=== PATIENT | female | born 1945 | race Caucasian/White ===

== ENCOUNTER 2020-01-14 08:03 | Outpatient (REF) | payer SELFPAY | END 2020-01-14 08:04 | disposition home or self-care (01) | LOC: HO.HAP 08:03 | PROVIDERS: Visit Provider Internal Medicine | DX: Z13.89 Encounter for screening for other disorder (principal) | CPT/HCPCS: 92700 ==

== ENCOUNTER 2020-01-15 08:09 | Outpatient (REF) | payer SELFPAY | END 2020-01-15 08:10 | disposition home or self-care (01) | LOC: HO.HAP 08:09 | PROVIDERS: Visit Provider Internal Medicine | DX: Z13.89 Encounter for screening for other disorder (principal) | CPT/HCPCS: 92700 ==

== ENCOUNTER 2020-01-30 08:55 | Outpatient (REF) | payer SELFPAY | END 2020-01-30 08:56 | disposition home or self-care (01) | LOC: HO.HAP 08:55 | PROVIDERS: PCP Internal Medicine; Referring Provider Internal Medicine; Visit Provider Internal Medicine | DX: Z13.89 Encounter for screening for other disorder (principal) | CPT/HCPCS: 92700 ==

== ENCOUNTER → 2020-07-14 08:28 | Outpatient (BNVA) | payer MEDICARE, OTHER, SELFPAY | PROVIDERS: Visit Provider Orthopaedic Surgery | DX: M72.0 Palmar fascial fibromatosis [Dupuytren] (principal) | CPT/HCPCS: 99202 ==

== ENCOUNTER 2020-08-11 09:47 | Outpatient (REF) | payer SELFPAY | END 2020-08-11 09:48 | disposition home or self-care (01) | LOC: HO.HAP 09:47 | PROVIDERS: Visit Provider Internal Medicine | DX: H90.3 Sensorineural hearing loss, bilateral (principal); Z46.1 Encounter for fitting and adjustment of hearing aid | CPT/HCPCS: 99499 ==

== ENCOUNTER → 2020-10-20 08:36 | Outpatient (BNVA) | payer OTHER, SELFPAY | PROVIDERS: Visit Provider Orthopaedic Surgery | DX: M72.0 Palmar fascial fibromatosis [Dupuytren] (principal) | CPT/HCPCS: 99212 ==

== ENCOUNTER 2020-11-02 06:04 | Day surgery (SDC) | payer MEDICARE, OTHER, SELFPAY ==
[2020-10-26 09:53] VITALS: BMI 25.0
--- NOTE | 2020-11-01 09:07 | HO.ANESPROP2 ---
Documented by User: Mariann Desire 11/01/20 09:07 HPI - Anesthesia Eval Consult details Narrative: 75yo F for Left Partial Fasciectomy of the Ring Finger, Middle Finger & Poss Small Finger PMFSH Active Problems Active Problems: All Active Problems (Updated 10/26/20 @ 09:55 by Anna Chester) Dupuytren's contracture of left hand (Acute) Dupuytren's contracture of right hand (Acute) Past Medical History Medical History COVID-19 vaccine series completed Dupuytren contracture Hx of cerebral infarction Hypercholesteremia Hypertension Wears hearing aid in both ears Surgical History Surgical History H/O colonoscopy Hx of hand surgery Hx of squamous cell carcinoma excision Hx of tonsillectomy Social History Social History Are you a primary managed care analyst to a significant other at home: No Do you presently have visiting nurse or other home services: No Patient Tobacco Use Status: Never used Tobacco Use of substances other than those prescribed or required for medical reasons: No Have you been hit, kicked, punched, or otherwise hurt by someone within the past year? If so, by whom?: No Are you DNR?: No Advance Directives: No Advance Directives Information Provided: Yes (states has a HCP but not on file @[facility] [place]-asked to bring copy DOS) Advance Directives on File: No Recently lost weight without trying: No Nutrition Risks: Surgical patient >75years Poor oral hygiene: No Current occupational status: retired Meds Allergies Allergy/AdvReac Type Severity Reaction Status Date / Time Penicillins [PCN] Allergy Mild RASH Verified 11/02/20 06:20 pravastatin AdvReac Intermediate body aches Verified 11/02/20 06:20 Home Medications Medication Instructions Recorded Confirmed Last Taken Type atorvastatin 40 mg tablet 40 mg PO DAILY 07/14/20 10/26/20 Unknown History glucosamine sulfate 2KCl 500 mg 500 mg PO DAILY 07/14/20 10/26/20 Unknown History capsule (Glucosamine Relief) lisinopril 40 mg tablet 40 mg PO DAILY 07/14/20 10/26/20 11/02/20 04:30 History amlodipine 2.5 mg tablet 2.5 mg PO DAILY 10/20/20 10/26/20 11/02/20 04:30 History zolpidem 5 mg tablet (Ambien) 5 mg PO BEDTIME PRN 10/20/20 10/26/20 Unknown History aspirin 325 mg tablet 325 mg PO DAILY 10/26/20 10/26/20 10/26/20 08:00 History Exam Exam Date and Time: November 01, 2020 0907 Height,Weight and Vital Signs: Height 5 ft Weight 58.06 kg Assessment and Plan Assessment Anesthesia Assessment: Chart Reviewed Documented by User: Endy Lowery MD 11/02/20 07:53 [facility] Past Medical History Medical History COVID-19 vaccine series completed Dupuytren contracture Hx of cerebral infarction Hypercholesteremia Hypertension Wears hearing aid in both ears Family History Family history of problems with anesthesia: No Surgical History Surgical History H/O colonoscopy Hx of hand surgery Hx of squamous cell carcinoma excision Hx of tonsillectomy History of Problems with Anesthesia: No Social History Social History Are you a primary managed care analyst to a significant other at home: No Do you presently have visiting nurse or other home services: No Patient Tobacco Use Status: Never used Tobacco Use of substances other than those prescribed or required for medical reasons: No Have you been hit, kicked, punched, or otherwise hurt by someone within the past year? If so, by whom?: No Are you DNR?: No Advance Directives: No Advance Directives Information Provided: Yes (states has a HCP but not on file @[facility] [place]-asked to bring copy DOS) Advance Directives on File: No Recently lost weight without trying: No Nutrition Risks: Surgical patient >75years Poor oral hygiene: No Current occupational status: retired Meds Allergies Allergy/AdvReac Type Severity Reaction Status Date / Time Penicillins [PCN] Allergy Mild RASH Verified 11/02/20 06:20 pravastatin AdvReac Intermediate body aches Verified 11/02/20 06:20 Home Medications Medication Instructions Recorded Confirmed Last Taken Type atorvastatin 40 mg tablet 40 mg PO DAILY 07/14/20 10/26/20 Unknown History glucosamine sulfate 2KCl 500 mg 500 mg PO DAILY 07/14/20 10/26/20 Unknown History capsule (Glucosamine Relief) lisinopril 40 mg tablet 40 mg PO DAILY 07/14/20 10/26/20 11/02/20 04:30 History amlodipine 2.5 mg tablet 2.5 mg PO DAILY 10/20/20 10/26/20 11/02/20 04:30 History zolpidem 5 mg tablet (Ambien) 5 mg PO BEDTIME PRN 10/20/20 10/26/20 Unknown History aspirin 325 mg tablet 325 mg PO DAILY 10/26/20 10/26/20 10/26/20 08:00 History Exam Airway Mallampati Class: II TM Dist: >3cm Neck ROM: Full Loose/Missing/Broken Teeth: Yes Heart: Sinus Assessment and Plan Assessment Anesthesia Assessment: Anesthesia Plan Discussed Final Anesthetic Review Family History of Problems with Anesthesia: No History of Problems with Anesthesia: No NPO: Yes ASA Class: II Final Preanesthetic Review: No Changes in Pt Med Stat, Meds/Allgs Chart Reviewed, Consent Obtained/Reviewed and Anes Risks/Benef Reviewed Patient Risk: Intermediate Procedure Risk: Low Anesthetic Plan Anesthetic Plan: GA and Regional Block Disposition: Standard PACU
[2020-11-02] VITALS (9 sets, daily range): BP systolic 110–150; BP diastolic 41–77; PULSE 75–87; RESP 16–18; TEMP 36.2–36.8; O2SAT 93–99
[2020-11-02] MEDS: Lactated Ringers 1,000 ML 100 ML IVCONT (07:03)
--- NOTE | 2020-11-02 07:45 | PC.NURSE ---
verified pt has pcn allergy with mild rash. informed DR Tinoco and Dr. Lowery. They both said ok for the cefazolin to be given in or. medication acknowledged.
--- NOTE | 2020-11-02 10:57 | MHC.SHP ---
Pre-Procedural Eval Section A Date of Service: 11/02/20 The patient is an INPATIENT: No Changes since office visit: No Cold of Flu in the past 2 weeks, No New Medical Problems, No Changes in Medication and No Patient answered all questions The History & Physical has been completed within 30 days and I have reviewed it.: Yes Section B Chief Complaint: House Fascial Fibromatosis Allergies: Allergies Allergy/AdvReac Type Severity Reaction Status Date / Time Penicillins [PCN] Allergy Mild RASH Verified 11/02/20 06:20 pravastatin AdvReac Intermediate body aches Verified 11/02/20 06:20 Plan I have reviewed the history and physical and performed a pertinent physical examination on my patient. No changes have occurred unless specified.
--- NOTE | 2020-11-02 10:58 | W.PM.OPN ---
Operative Note Operative Note Date of Service: 11/02/20 Narrative: Preop diagnosis: 1. Left hand and ring finger Dupuytren's contracture 2. Left hand and small finger Dupuytren's contracture Postop diagnosis: Same Procedure: 1. Left hand and ring finger Partial Dupuytren's fasciectomy 2. Left hand and small finger partial Dupuytren's fasciectomy 3. Neurolysis left ring finger ulnar digital nerve 4. Neurolysis left small finger ulnar digital nerve 5. Left ring finger PIP joint capsulectomy/volar release 6. Left small finger PIP joint capsulectomy/ volar release Surgeon: Genoveva Tinoco MD Anesthesia: Mac plus regional block Findings: 90 degree Dupuytren's contractures of the small and ring finger PIP joints The primary small finger Dupuytren's cord came off of the small finger abductor extending distally to the ulnar aspect of the middle phalanx. Implants: None Tourniquet time: 105 minutes EBL: 5.0 ml Specimen: Left ring finger and left small finger Dupuytren's cords sent for pathology. Drains: None Complications: None Disposition: Brought to the recovery room in stable condition Plan: Follow-up in 10-14 days for wound check, suture removal and to check pathology OT appt on day of f/u to make a custom night spint and to begin OT Indications: The patient is a [age] year old woman with 90 degree Dupuytren's contractures involving the PIP joints of both the small and ring fingers. . The risks and benefits of operative treatment, including but not limited to risk of damage to blood vessels, nerves, tendons, infection, recurrence, persistent pain or numbness, incomplete resolution of preoperative symptoms, or need for further surgery were discussed with the patient and they wished to proceed with surgery. Procedure: Once consent was obtained patient was brought back to the operating suite and placed in the operating table in a supine position. A regional block was performed by the anesthesia team. Perioperative antibiotics and anesthesia was administered by the anesthesia team. A tourniquet was applied to the proximal aspect of the left upper extremity and the limb was prepped and draped in a standard surgical fashion. The limb was elevated exsanguinated with Esmarch bandage and the tourniquet inflated to 250 mm of mercury for a total tourniquet time of 105 minutes. I made a Ruthann type incision extending along the Dupuytren's cord from the mid palm to the DIP flexion crease of the left ring finger. TheIncision was made with a 15. Blade through the skin the subcutaneous tissues. I then carefully dissected down to the level of the Dupuytren's cord beginning at the proximal aspect of the incision. This was done using tenotomy in iris scissors. Care was taken to protect the nearby neurovascular structures. The Dupuytren's cord was cut at its proximal aspect using tenotomy scissors. It was then grasped with an Allis clamp. TheDupuytren's cord was then carefully dissected free in a proximal to distal direction using tenotomy scissors and again taking care to protect the nearby neurovascular structures. At about the A1 lissa area I appreciated that the ulnar neurovascular bundle was deviating from its normal anatomic position centrally to passed beneath the Dupuytren's cord. The primary portion of the central cord then passed just ulnar to the PIP joint to the middle phalanx. A 2nd portion of the central cord however did also pass radially, and to the radial aspect of the middle phalanx. Great care was taken to dissect this Dupuytren's cord from the surrounding tissues while protecting the neurovascular structures. A neurolysis was performed on the ulnar neurovascular bundle carefully dissecting it free from the Dupuytren's cords as we proceeded from proximal to distal. The radial neurovascular cord tended to stay in its anatomic position. It was also protected during our dissection. Ultimately the Dupuytren's cord was dissected free from the flexor tendon sheath, proximal in middle phalanxes, and the skin, and passed to the back table to be sent for histopathology. This then allowed me to bring the PIP joint to about 45? from full extension. I then opened the flexor tendon sheath at the A3 lissa and retracted the flexor tendon out of the way while I performed my capsulectomy, releasing the accessory collateral ligaments and the volar plate both ulnarly and radially. This then allowed me to bring the PIP joint into full extension, and perhaps even small amount of hyper extension. I was very satisfied with our partial Dupuytren's fasciectomy and our release of the volar aspect of the PIP joint. Again the ring finger was then brought out to full extension at the MCP and PIP joints. My Attention was then turned to the left small finger. A Ruthann is a incision was then made over the volar aspect of the small finger extending from the A1 lissa area to the D IP joint. The incision was made through the skin and subcutaneous tissues. Careful dissection was then made down to the level of the Dupuytren's cord and the flexor tendon sheath using tenotomy and iris scissors. The primary cord appeared to extend from the small finger abductor distally to the ulnar aspect of the middle phalanx. The ulnar neurovascular bundle was noted to pass beneath and through this cord. Therefore a neurolysis was performed releasing the ulnar neurovascular bundle from the overlying Dupuytren's cord progressing in a proximal to distal direction. The radial neurovascular bundle appeared to maintain its normal anatomic position. Both of these structures were protected throughout our dissection. I then released the Dupuytren's cord from its origin at the small finger abductor using tenotomy scissors. I placed a snap on the cord to maintain traction while I released it in a proximal to distal direction again freeing it from about the ulnar digital neurovascular bundle. It extended distally past the PIP joint and was released from the flexor tendon sheath, the middle phalanx, and the skin using tenotomy and iris scissors. He was then placed on the back Table to be sent for histopathology. I then opened the flexor tendon sheath at the A3 lissa and retracted the flexor tendon out of the way while I performed my capsulectomy, releasing the accessory collateral ligaments and the volar plate both ulnarly and radially.? This then allowed me to bring the PIP joint into full extension.? I was very satisfied with our partial Dupuytren's fasciectomy and our release of the volar aspect of the PIP joint.? Again the small finger was then brought out to full extension at the MCP and PIP joints. At this point the tourniquet was deflated and hemostasis obtained with a brief period of local pressure . The wounds were copiously irrigated with normal saline. Theskin edges were reapproximated with 5-0 Prolene suture. The wounds were infiltrated with some 0.5% plain Marcaine for postop pain control and a sterile dressing and volar splint holding the small and ring fingers in extension was applied. The patient appears to have tolerated the procedure well and with no complications. All digits were well vascularized conclusion of the case.
== END 2020-11-02 13:18 | disposition home or self-care (01) ==
PROVIDERS: PCP Internal Medicine; Visit Provider Orthopaedic Surgery
PROC: (CPT 26123; principal; 2020-11-02 07:30)
DX: M72.0 Palmar fascial fibromatosis [Dupuytren] (principal); I10 Essential (primary) hypertension; I48.91 Unspecified atrial fibrillation; Z79.82 Long term (current) use of aspirin; Z79.899 Other long term (current) drug therapy; Z88.0 Allergy status to penicillin
CPT/HCPCS: 26123; 26125; 64719; 26525 ×2; 88304; J0690; J1100; J2370

== ENCOUNTER → 2020-11-15 09:37 | Outpatient (BNVA) | payer MEDICARE, OTHER, SELFPAY | PROVIDERS: Visit Provider Orthopaedic Surgery | DX: M72.0 Palmar fascial fibromatosis [Dupuytren] (principal) | CPT/HCPCS: 99212 ==

== ENCOUNTER → 2020-11-22 08:37 | Outpatient (BNVA) | payer MEDICARE, OTHER, SELFPAY | PROVIDERS: Visit Provider Physician Assistant | DX: M72.0 Palmar fascial fibromatosis [Dupuytren] (principal); E78.00 Pure hypercholesterolemia, unspecified; I10 Essential (primary) hypertension; Z88.0 Allergy status to penicillin; Z88.8 Allergy status to other drugs, medicaments and biological substances | CPT/HCPCS: 99212 ==

== ENCOUNTER → 2020-12-06 15:59 | Outpatient (BNVA) | payer MEDICARE, OTHER, SELFPAY | PROVIDERS: Visit Provider Orthopaedic Surgery | DX: M72.0 Palmar fascial fibromatosis [Dupuytren] (principal); M25.642 Stiffness of left hand, not elsewhere classified; I10 Essential (primary) hypertension; E78.00 Pure hypercholesterolemia, unspecified; Z88.0 Allergy status to penicillin; Z88.8 Allergy status to other drugs, medicaments and biological substances | CPT/HCPCS: 99212 ==

== ENCOUNTER 2020-12-09 08:10 | Outpatient (REF) | payer SELFPAY ==
--- NOTE | 2020-12-09 08:40 | MHC.AU.HFU ---
Hearing Instrument Follow-Up- Binaural Date of Visit: 12/09/20 Right Ear: Office Clin Asst: Phonak Model: Bolero V70-M Serial Number: [id number] Repair Warranty: 07/17/2018 Loss and Damage Warranty: Loss and Damage used 07/19/2016 Battery Size: 312 Color: Iona Beige Tubing: size 1 slim tube Type of Dome: Medium closed dome Dispensed By: [facility] Date of Fittin04/29/2015 Left Ear: Office Clin Asst: Phonak Model: Bolero V70-M Serial Number: [id number] Repair Warranty: 07/17/2018 Loss and Damage Warranty: Used 08/28/2017 Battery Size: 312 Color: Iona Beige Tubing: Size 1 slim tube Type of Dome: Medium closed dome Dispensed By: [facility] Date of Fittin04/29/15 Follow-Up Summary: Patient dropped off her right hearing aid, her original left hearing aid, and her replacement left hearing aid. She recently found the original left hearing aid and wanted to check if it still worked. She also reports that the replacement left hearing aid stopped working. Size 1 slim tubes and medium closed domes replaced on all 3 instruments. The original left hearing aid is still working. Updated it with latest programming. If anything were to ever happen to the original left hearing aid that would normally require sending it to the engine lathe set up operator, we would be unable to do so, as they would keep it. Battery compartments cleaned. All 3 hearing aids are amplifying clearly after maintenance. Recommendations: Hearing instrument follow-up or maintenance as needed. Patient will return to fern picker her hearing aids. Owes $10. Diagnosis Code(s): Primary Diagnosis: H90.3 Bilateral Sensorineural Hearing Loss Signature: Provider: Leonela Olmedo, [facility]
== END 2020-12-09 08:11 | disposition home or self-care (01) ==
LOC: HO.HAP 08:10
PROVIDERS: Visit Provider Internal Medicine
DX: Z46.1 Encounter for fitting and adjustment of hearing aid (principal); H90.3 Sensorineural hearing loss, bilateral
CPT/HCPCS: 99499

== ENCOUNTER → 2020-12-13 14:43 | Outpatient (BNVA) | payer MEDICARE, OTHER, SELFPAY | PROVIDERS: Visit Provider Orthopaedic Surgery | DX: M25.642 Stiffness of left hand, not elsewhere classified (principal); M72.0 Palmar fascial fibromatosis [Dupuytren] | CPT/HCPCS: 99212 ==

== ENCOUNTER 2020-12-15 08:38 | Outpatient (REF) | payer MEDICARE, OTHER, SELFPAY ==
--- NOTE | 2020-12-15 10:35 | MHC.AU.AHA ---
Adult Audiological Evaluation Date of Visit: 12/15/20 Reason for Appointment: Audiological re-evaluation due to concern for decreased hearing. Ms. Kilgore has a know bilateral sensorineural hearing loss and uses binaural hearing aids. She feels that she has not been hearing as well, feels things aren't clear, and has trouble hearing in groups. She recently had surgery on her hand, but otherwise denies any changes to her medical history. Previous Hearing Test Results: Curtain Framer Jf Powers at Dr. Dong's office, 01/17/2018 - Mild sloping to severe sensorineural hearing loss bilaterally. Medical History: Medical History: High Blood Pressure Medical History: skin cancer, hand surgery Hearing Instrument History- Right Ear: Clinical Training Coordinator: Bookitit Model: [employer] V70-M Serial Number: [id number] Battery Size: 312 Repair Warranty: 07/17/2018 Loss and Damage Warranty: Loss and Damage used 07/19/2016 Dispensed By: [facility] Date of Fittin04/29/2015 Hearing Instrument History- Left Ear: Clinical Training Coordinator: Blue Perchak Model: [employer] V70-M Serial Number: [id number] Battery Size: 312 Warranty: 07/17/2018 Loss and Damage Warranty: Used 08/28/2017 Dispensed By: [facility] Date of Fittin04/29/15 Otoscopy: Right Ear: Unremarkable Left Ear: Unremarkable Tympanometry: Tympanometry performed due to: To assess integrity of the middle ear system Right Ear: Reduced Middle Ear Compliance (Type As) Left Ear: Reduced Middle Ear Compliance (Type As) Hearing Evaluation: Transducer(s) Used: Insert Earphones, Bone Conduction Method: Conventional Audiometry Stimuli Used: Pure Tones Right Ear: Description of Hearing: Moderate sensorineural hearing loss from 250-2000 Hz, rising to mild sensorineural hearing loss at 4000 Hz, and sloping to a moderately-severe hearing loss at 6000 Hz and a severe hearing loss at 8000 Hz. Left Ear: Description of Hearing: Moderate sensorineural hearing loss from 250-6000 Hz, sloping to a moderately-severe hearing loss at 8000 Hz. Speech Recognition Threshold (SRT): Method Used: Monitored Live Voice Stimuli Used: Spondee Words Right Ear: 50 dBHL Left Ear: 45 dBHL Word Discrimination: Method: Recorded Lists Word Lists Used: NU-6 Right Ear: 96% at 85 dBHL Left Ear: 96% at 85 dBHL Comparison: Compared to the most recent evaluation: Thresholds have decreased bilaterally. Recommendations: Audiological re-evaluation in one year. Hearing aid maintenance performed today. Hearing aid(s) reprogrammed with updated test results. Diagnosis: Primary Diagnosis: H90.3 Bilateral Sensorineural Hearing Loss Services Performed: Comprehensive Audiological Evaluation (CPT 79297) Tympanometry (CPT 86123) Signature: Provider: Leonela aVlle, CCC-A
== END 2020-12-15 08:39 | disposition home or self-care (01) ==
LOC: HO.SH 08:38
PROVIDERS: PCP Physician Assistant; Visit Provider Physician Assistant
DX: H90.3 Sensorineural hearing loss, bilateral (principal)
CPT/HCPCS: 92557; 92567

== ENCOUNTER → 2020-12-20 09:37 | Outpatient (BNVA) | payer MEDICARE, OTHER, SELFPAY | PROVIDERS: PCP Physician Assistant; Visit Provider Orthopaedic Surgery | DX: M25.642 Stiffness of left hand, not elsewhere classified (principal); M72.0 Palmar fascial fibromatosis [Dupuytren] | CPT/HCPCS: 99212 ==

== ENCOUNTER → 2021-01-19 08:29 | Outpatient (BNVA) | payer MEDICARE, OTHER, SELFPAY | PROVIDERS: Visit Provider Orthopaedic Surgery | DX: M25.642 Stiffness of left hand, not elsewhere classified (principal); M72.0 Palmar fascial fibromatosis [Dupuytren] | CPT/HCPCS: 99212 ==

== ENCOUNTER 2021-02-07 09:30 | Outpatient (RCR) | payer MEDICARE, OTHER, SELFPAY ==
--- NOTE | 2020-11-15 15:47 | MHC.OT.OEV ---
[address] [phone] F: [phone] Occupational Therapy Evaluation Diagnosis: LEFT HAND DUPUYTREN'S RELEASE Date of Onset: Date of Surgery: 11/02/20 Attending Provider: Genoveva Negron Prescribed Treatment: EVAL AND TREAT, NIGHT TIME ORTHOSIS MD Follow Up Appointment: 11/22/20 History of Current Condition: 75-year-old woman who is status post left ring finger and left small finger Dupuytren partial fasciectomy and volar releases of the PIP joints with Dr Negron on 11/02/20. Middle finger to be treated non-operatively. She reports several years of B/L hand Dupuytrens contracture. Significant Medical History: B/L Duputryen contracture s/p repair R hand around 2008, B/L hearing loss Precautions/Contraindications: POST OP 11/02/20 Patient Goals: TO BE ABLE TO MOVE HAND AND BE STRAIGHT POSSIBLE Hand Dominance: Right QuickDASH Score: 66% Prior Level of Function and Occupation Self Care, Employment, Leisure: RETIRED HOBIES INCLUDE GOING TO THE [employer], EXERCISING, READING, GARDENING Living Situation, Family and/or Social Support: LIVES ALONE Current Level of Function and Occupation Self Care, Employment, Leisure: DIFFICULTIES WITH OPENING TIGHT JAR, CARRYING AND HOLDING ITEMS IN LEFT HAND. USING COMPENSATORY TECHNIQUES NEEDED. NO TROUBLES WITH READING, HAS NOT RETURNED TO EXERCISE YET. Sleep: REPORTS MILD DIFFICULTIES, SLEEPING WITH LUE ELEVATED Driving: NOT CURRENTLY DRIVING Pain Assessment Pain Score: 0-4/10 Pain Scale Used: Numeric (0 - 10) Pain Location and Description: 0/10 AT REST 4/10 WITH USE, SURGICAL SITE VOLAR MCPs OF SF AND RF Aggravating Factors: Alleviating Factors: OCCASIONALLY USING IBUPROFEN, HAS TRIED ICE Skin and Soft Tissue Assessment Skin and Soft Tissue: Contracture Swelling Wound Comments: SUTURES INTACT TO VOLAR HAND AND D4/D5 DIGITS Sensory Assessment Temperature: Light Touch: Left Impaired Proprioception: Vibration: Comments: DIMINISHED TO LIGHT TOUCH AT D4/D5 L HAND PER SEMMES NOAH ASSESSMENT Edema Assessment Upper Extremity: Left Impaired Lower Extremity: Comments: MILD EDEMA AT SURGICAL SITE CIRCUMFERENCE OF WRIST, DISTAL TO US: LEFT 14.1 CM, RIGHT 13.6 CM Dexterity Assessment Dexterity: Left Impaired Comments: FUNCTIONAL DEXTERITY TEST: LEFT 53 SECONDS, RIGHT 28 SECONDS AROM(PROM) Strength Elbow Flexion: Extension: Pronation: Supination: Comments: WFL Flexion: Extension: Pronation: Supination: Comments: Wrist Flexion: Extension: Ulnar Deviation: Radial Deviation: Comments: Flexion: L 45, R 65 Extension: L 45, R 75 Ulnar Deviation: Radial Deviation: Comments: Thumb Thumb CMC Flexion: Thumb MCP Flexion: Thumb IP Flexion: Radial Abduction: Palmar Abduction: [place] (Kapandji 0-10): 5 Comments: Digits Index MCP: PIP: DIP: Long MCP: PIP: DIP: Ring MCP: L 0/50, R 90 PIP: L 60, R 92 DIP: L 12 Small MCP: L 0/38, R 90 PIP: L 72, R 98 DIP: L 6 Comments: CONTRACTURE TO PIPj RING AND SMALL DIGIT Gross Grasp: R 42 Lateral Pinch: R 11 Two-Point Pinch: R 8 Three-Jaw Shun: R 11 Comments: L STRENGTH TESTING DEFERRED Patient Education Primary Language: Marshallese 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 Patient demonstrates Patient verbalizes Barriers to Learning: None Readiness for Learning: Accepting Who was educated? Patient Comments: Plan of Care Assessment: RUDY IS 13 DAYS POST OP FROM DUPUYTRENS RELEASE OF LEFT SMALL FINGER AND RING FINGER. SHE WAS SEEN THIS MORNING BY DR NEGRON AND SOME SUTURES WERE REMOVED, AND HAS ANOTHER FOLLOW UP APPOINTMENT NEXT WEEK ON 11/22/20. HER INCISION LOOKED CLEAN AND DRY WITHOUT DRAINAGE, NO SIGNS OF INFECTION. A HAND BASED NIGHT SPLINT WAS FABRICATED FOR SF/RF DIGIT EXTENSION. SHE WOULD BENEFIT FROM ADDITIONAL OT TO ADDRESS THE AREAS MENTIONED ABOVE. SHE REPORTS A 66% LIMITATION PER THE QUICK DASH ASSESSMENT. 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 CARRIER OPERATOR STRENGTH >25 POUNDS MIN FUNCTIONAL PER FUNCTIONAL DEXTERITY TEST OF L HAND L TIP TO DISTAL PALMAR CREASE <2.0 Frequency and Duration: The patient will be seen 2X/WEEK FOR 6 WEEKS Treatment Plan: Therapeutic Exercise Therapeutic Activity Home Exercise Program Splinting Neuro Re-ed Patient Education Desensitization/Sensory Re-ed Edema Control ADL Training Ultrasound NMES Iontophoresis Paraffin Fluidotherapy MHP Cold Packs Joint Mobilization Soft Tissue Mobilization Kinesiotaping Electronically Signed By: FARZANA SHI/Fazal Reviewed/agree with student documentation: N/A Therapist: Please sign and return to therapist, Thank you for your referral.
--- NOTE | 2021-02-07 13:51 | MHC.OT.DC ---
[address] [phone] F: [phone] Occupational Therapy Discharge Note Provider: Dr Tinoco Diagnosis: LEFT HAND DUPEYTREN'S RELEASE Date of Surgery: 11/02/20 Date of Evaluation: 11/15/20 Date of Discharge: 02/07/21 Treatments to Date: 27 Discharge Status: Independent with HEP Discharge Summary: Dariana has plateaued w/ range in left ring and small fingers, still with joint contractures and adhesions limiting full range, but generally pain free and good overall functional use of left hand. She has good carry over w/ HEP and will continue on her own at home. Electronically Signed By: Hiral Schmidt OTR/L Please Sign and return to therapist, thank you for your referral.
== END 2021-02-07 13:52 | disposition home or self-care (01) ==
LOC: HO.OT 09:30
PROVIDERS: Visit Provider Orthopaedic Surgery
DX: M72.0 Palmar fascial fibromatosis [Dupuytren] (principal)
CPT/HCPCS: 29126; 29130; 97033; 97035; 97110; 97140; 97166; 97530; 97760

== ENCOUNTER 2021-03-15 09:00 | Outpatient (REF) | payer MEDICARE, OTHER, SELFPAY ==
[2021-03-15 11:39] LABS: Hematocrit 41.4 % (37.0-47.0); Hemoglobin 13.8 g/dl (12.0-16.0); Mean Corpuscular HGB Conc 33.3 g/dl (31.0-35.0); Mean Corpuscular Hemoglobin 30.9 pg (27.0-33.0); Mean Corpuscular Volume 92.8 fL (80.0-98.0); Mean Platelet Volume 10.4 fL (9.4-12.3); Platelet Count 353 X10*3/uL (160-400); Red Blood Count 4.46 X10*6/uL (4.20-5.50); Red Cell Distribution Width 12.2 % (11.0-16.0); White Blood Count 6.4 X10*3/uL (4.8-10.8)
[2021-03-15 12:04] LABS: Alanine Aminotransferase 27 U/L (0-31); Albumin Level 4.5 g/dL (3.5-5.0); Alkaline Phosphatase 98 U/L (39-117); Anion Gap 14 (12-20); Aspartate Amino Transferase 25 U/L (5-31); Bilirubin Total 1.5 mg/dL (0.0-1.0); Blood Urea Nitrogen 11 mg/dL (9-16); Calcium 10.4 mg/dL (8.4-10.2); Carbon Dioxide 27 mmol/L (22-29); Chloride 100 mmol/L (96-108); Cholesterol 142 mg/dL; Estimated Glomerular Filt Rate > 60; Glucose Fasting 117 mg/dL (60-99); HDL Cholesterol 58 mg/dL; LDL Cholesterol Calculated 72 mg/dl; Potassium 5.2 mmol/L (3.3-5.1); Sodium 136 mmol/L (135-145); Total Protein 7.6 g/dL (6.5-8.0); Triglycerides 60 mg/dL
[2021-03-15 12:28] LABS: TSH reflex Free T4 1.75 uIU/mL (0.32-4.0)
== END 2021-03-15 09:01 | disposition home or self-care (01) ==
LOC: HO.WFDLDS 09:00
PROVIDERS: Visit Provider Hospitalist
DX: Z00.00 Encounter for general adult medical examination without abnormal findings (principal); E87.5 Hyperkalemia; Z13.220 Encounter for screening for lipoid disorders; Z13.29 Encounter for screening for other suspected endocrine disorder
CPT/HCPCS: 36415; 80053; 80061; 84443; 85027

== ENCOUNTER 2021-03-29 08:08 | Outpatient (REF) | payer MEDICARE, OTHER, SELFPAY ==
[2021-03-29 12:10] LABS: Anion Gap 11 (12-20); Blood Urea Nitrogen 10 mg/dL (9-16); Calcium 9.6 mg/dL (8.4-10.2); Carbon Dioxide 28 mmol/L (22-29); Chloride 101 mmol/L (96-108); Estimated Glomerular Filt Rate > 60; Glucose Random 116 mg/dL (60-115); Potassium 4.8 mmol/L (3.3-5.1); Sodium 135 mmol/L (135-145)
== END 2021-03-29 08:09 | disposition home or self-care (01) ==
LOC: HO.WFDLDS 08:08
PROVIDERS: Visit Provider Hospitalist
DX: E87.5 Hyperkalemia (principal)
CPT/HCPCS: 36415; 80048

== ENCOUNTER 2021-04-26 17:48 | Outpatient (REF) | payer MEDICARE, OTHER, SELFPAY ==
[2021-04-27 07:00] LABS: Appearance Urine CLEAR; Color Urine YELLOW; PH 6.5 (5.0-8.0)
[2021-04-27 07:01] LABS: Glucose Urine UA NEG (NEG); Leukocyte Esterase Urine NEG (NEG); Nitrite Urine NEG (NEG); Urine Blood 1+ (NEG); Urine Ketones NEG (NEG); Urine Protein NEG (NEG-TRACE)
[2021-04-27 07:02] LABS: RBC Urine 0-2 /HPF (0); Squamous Epithelial Cell Urine 1+ /LPF
== END 2021-04-26 17:49 | disposition home or self-care (01) ==
LOC: HO.LNP 17:48
PROVIDERS: Visit Provider Hospitalist
DX: R39.0 Extravasation of urine (principal)
CPT/HCPCS: 81001

== ENCOUNTER 2021-05-04 10:08 | Outpatient (REF) | payer MEDICARE, OTHER, SELFPAY ==
--- NOTE | ~2021-05-04 | US_ITS ---
EXAMINATION: US VENOUS ULTRASOUND WITH DOPPLER LOWER EXTREMITY, LEFT CLINICAL INFORMATION: Swelling COMPARISON: None TECHNIQUE: Ultrasound of the deep veins is performed from the hip to the calf with compression sonography and color and pulse Doppler assessment. Spectral analysis with color-flow imaging is performed. FINDINGS: There is normal venous compression and respiratory variation and augmented flow. The visualized common femoral vein, superficial femoral vein, profunda femoral vein, popliteal vein, and the posterior tibial vein shows no evidence of deep venous thrombosis. The peroneal vein is not well visualized. The contralateral right common femoral vein is patent. There is no significant popliteal fossa cyst. US/US venous duplex LE LT IMPRESSION: No DVT demonstrated in the left lower extremity.
== END 2021-05-04 10:09 | disposition home or self-care (01) ==
LOC: HO.US 10:08
PROVIDERS: PCP Hospitalist; Visit Provider Hospitalist
DX: M79.605 Pain in left leg (principal); R60.0 Localized edema
CPT/HCPCS: 93971

== ENCOUNTER 2021-05-11 09:06 | Outpatient (REF) | payer SELFPAY ==
--- NOTE | 2021-05-11 09:24 | MHC.AU.P13 ---
Hearing Instrument Maintenance Date of Visit: 05/11/21 Right Ear: Global Sourcing Manager: Phonak Model: Integene Internationalero V70-M Serial Number: [id number] Repair Warranty: 07/17/2018 Loss and Damage Warranty: Loss and Damage used 07/19/2016 Battery Size: 312 Color: Iona Beige Tubing: size 1 slim tube Type of Dome: Medium closed dome Dispensed By: [facility] Date of Fittin04/29/2015 Left Ear: Global Sourcing Manager: Phonak Model: Bolero V70-M Serial Number: [id number] Repair Warranty: 07/17/2018 Loss and Damage Warranty: Used 08/28/2017 Battery Size: 312 Color: Iona Beige Tubing: Size 1 slim tube Type of Dome: Medium closed dome Type of Wax Guard: Dispensed By: [facility] Date of Fittin04/29/15 Follow-Up Summary: Hearing aids cleaned - tubes and domes replaced - both amplifying clearly. Recommendations: Recommendations: Hearing instrument follow-up or maintenance as needed. Diagnosis Code(s): Primary Diagnosis: H90.3 Bilateral Sensorineural Hearing Loss Signature: Provider: TATIANNA Tai-HIS
== END 2021-05-11 09:07 | disposition home or self-care (01) ==
LOC: HO.HAP 09:06
PROVIDERS: Visit Provider Hospitalist
DX: Z46.1 Encounter for fitting and adjustment of hearing aid (principal); H90.3 Sensorineural hearing loss, bilateral
CPT/HCPCS: 99499

== ENCOUNTER 2021-07-29 07:58 | Outpatient (REF) | payer MEDICARE, OTHER, SELFPAY | END 2021-07-29 07:59 | disposition home or self-care (01) | LOC: HO.MAMMO 07:58 | PROVIDERS: Visit Provider Hospitalist | DX: Z13.89 Encounter for screening for other disorder (principal) ==

== ENCOUNTER 2021-08-12 08:13 | Outpatient (REF) | payer MEDICARE, OTHER, SELFPAY ==
--- NOTE | ~2021-08-12 | MM_ITS ---
EXAMINATION: MM SCREENING DIGITAL BREAST TOMOSYNTHESIS, BILATERAL CLINICAL INFORMATION: Screening. Asymptomatic. The lifetime risk of breast cancer based on the Tyrer-Cuzick Model is 2%. COMPARISON: Outside mammography 08/18/2020, 08/06/2020, 02/16/2018, 02/03/2017 ([facility]). TECHNIQUE: Digital breast tomosynthesis is performed in both the craniocaudal and mediolateral oblique views along with computer-aided detection (CAD). Synthesized 2D images are generated from the tomosynthesis. FINDINGS: There are scattered areas of fibroglandular density (ACR BI-RADS breast composition Category b). There are no significant masses, abnormal calcifications, or other abnormalities. Parenchymal pattern is similar to prior studies. No developing density. There are some scattered subtle dermal lesions again noted. The axilla are unremarkable. MM/MM tomosynthesis screening BI IMPRESSION: No mammographic evidence of malignancy. ASSESSMENT: BI-RADS 2: Benign RECOMMENDATION: Routine annual mammography screening. This patient's information was entered into a reminder system with a target due date for their next mammogram.
== END 2021-08-12 08:14 | disposition home or self-care (01) ==
LOC: HO.MAMMO 08:13
PROVIDERS: Visit Provider Hospitalist
DX: Z12.31 Encounter for screening mammogram for malignant neoplasm of breast (principal)
CPT/HCPCS: 77063; 77067

== ENCOUNTER 2021-09-20 09:51 | Outpatient (REF) | payer SELFPAY | END 2021-09-20 09:52 | disposition home or self-care (01) | LOC: HO.HAP 09:51 | PROVIDERS: Visit Provider Hospitalist | DX: Z46.1 Encounter for fitting and adjustment of hearing aid (principal); H90.3 Sensorineural hearing loss, bilateral | CPT/HCPCS: 99499; V5299 ==

== ENCOUNTER 2022-01-09 08:38 | Outpatient (REF) | payer MEDICARE, OTHER, SELFPAY ==
[2022-01-09 11:44] LABS: Hematocrit 41.3 % (37.0-47.0); Mean Corpuscular HGB Conc 33.9 g/dl (31.0-35.0); Mean Corpuscular Hemoglobin 31.9 pg (27.0-33.0); Mean Corpuscular Volume 94.1 fL (80.0-98.0); Mean Platelet Volume 10.3 fL (9.4-12.3); Platelet Count 388 X10*3/uL (160-400); Red Blood Count 4.39 X10*6/uL (4.20-5.50); Red Cell Distribution Width 12.7 % (11.0-16.0); White Blood Count 8.5 X10*3/uL (4.8-10.8)
[2022-01-09 12:24] LABS: TSH reflex Free T4 1.83 uIU/mL (0.32-4.0)
[2022-01-09 12:40] LABS: Alanine Aminotransferase 17 U/L (0-31); Albumin Level 4.8 g/dL (3.5-5.0); Alkaline Phosphatase 108 U/L (39-117); Anion Gap 18 (12-20); Aspartate Amino Transferase 23 U/L (5-31); Bilirubin Total 2.1 mg/dL (0.0-1.0); Blood Urea Nitrogen 12 mg/dL (9-16); Carbon Dioxide 25 mmol/L (22-29); Chloride 97 mmol/L (96-108); Cholesterol 147 mg/dL; Estimated Glomerular Filt Rate > 60; Glucose Fasting 126 mg/dL (60-99); HDL Cholesterol 67 mg/dL; LDL Cholesterol Calculated 67 mg/dl; Potassium 4.5 mmol/L (3.3-5.1); Sodium 135 mmol/L (135-145); Triglycerides 69 mg/dL
[2022-01-14 15:25] LABS: Vitamin D 25-OH, D2 <4 ng/mL; Vitamin D 25-OH, D3 30 ng/mL; Vitamin D 25-OH, Total 30 ng/mL (30-100)
== END 2022-01-09 08:39 | disposition home or self-care (01) ==
LOC: HO.WFDLDS 08:38
PROVIDERS: Visit Provider Hospitalist
DX: Z13.89 Encounter for screening for other disorder (principal)
CPT/HCPCS: 36415; 80053; 80061; 82306; 84443; 85027

== ENCOUNTER 2022-01-09 09:49 | Outpatient (REF) | payer MEDICARE, OTHER, SELFPAY | END 2022-01-09 09:50 | disposition home or self-care (01) | LOC: HO.LAB 09:49 | PROVIDERS: Visit Provider Hospitalist | DX: Z13.9 Encounter for screening, unspecified (principal) | CPT/HCPCS: 36415; 80053; 80061; 82306; 84443; 85027; 87086 ==

== ENCOUNTER 2022-01-17 10:59 | Outpatient (REF) | payer MEDICARE, OTHER, SELFPAY ==
--- NOTE | 2022-01-17 12:47 | MHC.AU.HFU ---
Hearing Instrument Follow-Up- Binaural Date of Visit: 01/17/22 Right Ear: Jeffrey Ledezma0-M SN: [id number] Color: Iona Beige Repair Warranty: 07/17/2018 Loss and Damage Warranty: Loss and Damage used 07/19/2016 Battery Size: 312 Applications Developer: #1 slim tube Type of Mold: Medium vented dome Dispensed By: [facility] Date of Fittin04/29/2015 Left Ear:Jeffrey Ledezma0-M SN: [id number] Color: Iona Beige Repair Warranty: 07/17/2018 Loss and Damage Warranty: Used 08/28/2017 Battery Size: 312 Applications Developer: #1 slim tube Type of Mold: Medium vented dome Dispensed By: [facility] Date of Fittin04/29/15 Follow-Up Summary: Dariana dropped of both hearing aids for a routine tubing change. Cleaned hearing aids and battery compartments. Vacuumed microphones. Replaced slim tubes and domes. Listening check demonstrated hearing aids are in good working order. Recommendations: Hearing instrument maintenance in 6 months, or sooner if needed. Please contact our clinic with any questions or concerns. Diagnosis Code(s): Primary Diagnosis: H90.3 Bilateral Sensorineural Hearing Loss Signature: Provider: Neil Abdul, [facility]
== END 2022-01-17 11:00 | disposition home or self-care (01) ==
LOC: HO.HAP 10:59
PROVIDERS: Visit Provider Hospitalist
DX: Z46.1 Encounter for fitting and adjustment of hearing aid (principal); H90.3 Sensorineural hearing loss, bilateral
CPT/HCPCS: 92593

== ENCOUNTER 2022-07-10 09:27 | Outpatient (REF) | payer MEDICARE, OTHER, SELFPAY ==
[2022-07-10 12:06] LABS: Alanine Aminotransferase 19 U/L (0-31); Albumin Level 4.5 g/dL (3.5-5.0); Alkaline Phosphatase 96 U/L (39-117); Aspartate Amino Transferase 21 U/L (5-31); Bilirubin Direct 0.6 mg/dL (0.0-0.5); Bilirubin Total 1.9 mg/dL (0.0-1.0); Total Protein 6.9 g/dL (6.5-8.0)
== END 2022-07-10 09:28 | disposition home or self-care (01) ==
LOC: HO.WFDLDS 09:27
PROVIDERS: Visit Provider Hospitalist
DX: B35.9 Dermatophytosis, unspecified (principal); R17 Unspecified jaundice
CPT/HCPCS: 36415; 80076

== ENCOUNTER 2022-08-14 08:17 | Outpatient (REF) | payer MEDICARE, OTHER, SELFPAY ==
--- NOTE | ~2022-08-14 | MM_ITS ---
EXAMINATION: MM SCREENING DIGITAL BREAST TOMOSYNTHESIS, BILATERAL CLINICAL INFORMATION: Screening. Asymptomatic. The lifetime risk of breast cancer based on the Tyrer-Cuzick Model is 2%. COMPARISON: Mammography: 08/12/2021; outside mammography 08/18/2020, 08/06/2020, 02/16/2018, 02/03/2017 ([place]). TECHNIQUE: Digital breast tomosynthesis is performed in both the craniocaudal and mediolateral oblique views along with computer-aided detection (CAD). Synthesized 2D images are generated from the tomosynthesis. FINDINGS: There are scattered areas of fibroglandular density (ACR BI-RADS breast composition Category b). There are no significant masses, abnormal calcifications, or other abnormalities. No architectural abnormality or developing density or significant change from prior studies. The axilla are unremarkable. No significant changes. MM/MM tomosynthesis screening BI IMPRESSION: No mammographic evidence of malignancy. ASSESSMENT: BI-RADS 1: Negative RECOMMENDATION: Routine annual mammography screening. This patient's information was entered into a reminder system with a target due date for their next mammogram.
== END 2022-08-14 08:18 | disposition home or self-care (01) ==
LOC: HO.MAMMO 08:17
PROVIDERS: PCP Hospitalist; Visit Provider Hospitalist
DX: Z12.31 Encounter for screening mammogram for malignant neoplasm of breast (principal)
CPT/HCPCS: 77063; 77067

== ENCOUNTER 2022-08-16 08:55 | Outpatient (REF) | payer SELFPAY | END 2022-08-16 08:56 | disposition home or self-care (01) | LOC: HO.HAP 08:55 | PROVIDERS: Visit Provider Hospitalist | DX: Z46.1 Encounter for fitting and adjustment of hearing aid (principal); H90.3 Sensorineural hearing loss, bilateral | CPT/HCPCS: V5267 ==

== ENCOUNTER 2022-09-18 12:03 | Outpatient (REF) | payer SELFPAY | END 2022-09-18 12:04 | disposition home or self-care (01) | LOC: HO.HAP 12:03 | PROVIDERS: Visit Provider Hospitalist | DX: Z13.89 Encounter for screening for other disorder (principal) ==

== ENCOUNTER 2022-09-19 10:19 | Outpatient (REF) | payer SELFPAY | END 2022-09-19 10:20 | disposition home or self-care (01) | LOC: HO.HAP 10:19 | PROVIDERS: Visit Provider Hospitalist | DX: Z13.89 Encounter for screening for other disorder (principal) ==

== ENCOUNTER 2023-01-16 11:38 | Outpatient (AMB) | payer MEDICARE, OTHER, SELFPAY ==
--- NOTE | 2023-01-16 11:40 | MHC.PC.OV ---
Vital Signs 01/16/23 11:41 Height 5 ft 3 in Weight 124 lb 2 oz BMI 22.0 BP 124/72 Blood Pressure Location Rt brachial Position Sitting Respiration 13 Pulse 106 H Pulse Source Pulse Oximeter Temp 97.7 F Temp Source Temporal Artery Scan Pulse Oximetry (%) 99 Oxygen Delivery Method Room Air Intake Visit Reasons: 6 mo f/u for htn and hld Intake Note: Patient would like her ears checked to see if there is wax build up. Patient states that she has a hearing aid in and is still struggling to hear. Patient also wants to discuss RSV vaccine and see if its recommended for her. Infrastructure Engineer Required: No Accompanied by: Self / Same As Patient Allergies Penicillins [PCN] Allergy (Mild, Verified 01/16/23 11:47) RASH pravastatin Adverse Reaction (Intermediate, Verified 01/16/23 11:47) body aches Tobacco use date assessed: 01/16/23 Fall risk assessment: No Falls in past year Last assessed Fall Risk: 01/16/23 Dental Screening Dental Screen Date: 01/16/23 Did you have a dental visit in the last 12 months?: Yes Did you have a dental problem in the last 6 months where you did not have access to dental care?: No Was dental information given to patient?: Patient has dentist HPI 6 mo f/u for htn and hld HPI Details 77 y/o female presents to f/u hypertension and hyperlipidemia. No recent labs to review for her lipids. She is on artovastatin 40mg daily. Blood pressure today 124/72. She is on amlodipine 5mg and lisinopril 40mg daily. She notes she would like to get her ears checked today. She reports she has a hearing and is still struggling to hear. [facility] Medical History Wears hearing aid in both ears COVID-19 vaccine series completed Hx of cerebral infarction Dupuytren contracture Hypercholesteremia Hypertension Surgical History Hx of squamous cell carcinoma excision Hx of tonsillectomy Hx of hand surgery H/O colonoscopy Family History Other Mental health disorder Substance abuse Social History Housing: House Are you a primary intensive care ambulance paramedic to a significant other at home: No Do you presently have visiting nurse or other home services: No Patient Tobacco Use Status: Never used Tobacco e-Cigarette/Vaping Use: Never Used Second Hand Smoke Exposure: No service: No Current occupational status: retired Current occupational exposures/hazards: No Cognitive needs: No Hearing needs: Yes Vision needs: No Questionnaire Thrive Questionnaire Date Thrive assessed: 03/15/21 ALLEY-7 AMB Questionnaire ALLEY-7 Date ALLEY - 7 assessed: 10/03/21 Source: Developed by Drs. Ricky Lafleur, Dara Krueger, Jordan Ly and colleagues, with an educational stacey from [employer]. Physical exam (Primary Care) Vital Signs: Last Vital Signs Temp 97.7 F 01/16/23 11:41 Pulse 106 H 01/16/23 11:41 Resp 13 01/16/23 11:41 BP 124/72 01/16/23 11:41 Pulse Ox 99 01/16/23 11:41 Oxygen Delivery Method Room Air 01/16/23 11:41 BMI result Body Mass Index 22.0 Tobacco/Smoking Status: Tobacco use Status Tobacco use date assessed 01/16/23 01/16/23 11:51 Patient Tobacco Use Status Never used Tobacco 01/16/23 11:40 e-Cigarette/Vaping Use Never Used 01/16/23 11:40 Thrive Assessment: Date of Thrive Assessment Date Thrive assessed 03/15/21 01/16/23 11:40 Assessment and Plan Assessment & Plan (1) Hypertension: Code(s): I10 - Essential (primary) hypertension Plan: Blood?pressure?is?well?controlled.??Goal?is?less?than?140/90 Continue?current?medication?regimen (2) Hypercholesteremia: Code(s): E78.00 - Pure hypercholesterolemia, unspecified Plan: Lipids?were?well?controlled?at?her?last?visit Continue?current?medication Recheck?lipids?prior?to?her?next?visit.??She?is?seen?q.6?months (3) Decreased hearing: Code(s): H91.90 - Unspecified hearing loss, unspecified ear Plan: Decreased?hearing.??Patient?wears?hearing?aids. Referred?to?ENT (4) Immunization counseling: Code(s): Z71.85 - Encounter for immunization safety counseling Plan: Has?gotten?flu?and?COVID?shots.??Recommended?RSV. Orders: Orders Complete Blood Count Auto Diff Today Z00.00 - Encounter for general adult medical examination without abnormal findings Lipid Panel Today Z00.00 - Encounter for general adult medical examination without abnormal findings TSH reflex Free T4 Today Z00.00 - Encounter for general adult medical examination without abnormal findings UA and rflx microscopic Today Z00.00 - Encounter for general adult medical examination without abnormal findings Comprehensive [place]. Panel Fast Today Z00.00 - Encounter for general adult medical examination without abnormal findings Microalbumin, Random (w Creat) Today I10 - Essential (primary) hypertension Referrals Ear/Nose/Throat Referral H91.90 - Unspecified hearing loss, unspecified ear Coding Level of Care Code Est Pt Level 4 (64606) Diagnoses Hypertension I10 Hypercholesteremia E78.00 Decreased hearing H91.90 Immunization counseling Z71.85
[2023-01-16 11:41] VITALS: BP 124/72; PULSE 106; RESP 13; TEMP 36.5; O2SAT 99; BMI 22.0
== END 2023-01-16 13:10 | disposition home or self-care (01) ==
PROVIDERS: PCP Hospitalist; Visit Provider Family Medicine
DX: I10 Essential (primary) hypertension (principal); E78.00 Pure hypercholesterolemia, unspecified; H91.90 Unspecified hearing loss, unspecified ear; Z71.85 Encounter for immunization safety counseling
CPT/HCPCS: 99214

== ENCOUNTER 2023-04-12 09:50 | Outpatient (REF) | payer SELFPAY ==
--- NOTE | 2023-04-12 13:03 | MHC.AU.HA1 ---
Hearing Aid Evaluation Date of Visit: 04/12/23 Historical Information: Description of Hearing: Moderate to severe sensorineural hearing loss, bilateral. Current personal amplification information, if applicable: Phonak Bolero V70 Summary: Dariana is here today with a recent evaluation from Dr. Dong's office dated 03/01/23 and with medical clearance for new amplification. Reviewed styles, technology levels, pricing. Recommended use of custom earmolds. Pt would like rechargeable. She notes that she has been frustrated with her current hearing aids not working well in noisy environments, and has difficult hearing her sons. 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 Oticon Real 1 miniRITE R selected. Impressions taken without incidence Au. Hearing Aid Prescription: Based on the individual?s shared listening needs, communication environments, dexterity, desire for connectivity, and personal preferences, the following prescription for amplification has been made: Right ear: Make, Model, Color: Oticon Real 1 miniRITE R, Chroma Beige Battery Size: Rechargeable Treating Plant Supervisor/Slim Tube: 185 Type of Earmold/Dome/CShell/SlimTip: acrylic half skeleton slim tip Left ear: Left ear prescription to be same as Right Hearing Aid above: Make, Model, Color: Oticon Real 1 miniRITE R, Chroma Beige Battery Size: Rechargeable Treating Plant Supervisor/Slim Tube: 185 Type of Earmold/Dome/CShell/SlimTip: acrylic half skeleton slim tip Accessories/Assistive Technology Recommended: storage battery charger Plan of Care: Patient wishes to purchase hearing aids as prescribed Action Taken/Action Needed: Hearing Instrument Fitting to be scheduled when materials arrive Primary Diagnosis: H90.3 Bilateral Sensorineural Hearing Loss Secondary Diagnosis: Signature: Provider: Neil Bergman, [facility]
== END 2023-04-12 09:51 | disposition home or self-care (01) ==
LOC: HO.HAP 09:50
PROVIDERS: Visit Provider Otolaryngology
DX: Z46.1 Encounter for fitting and adjustment of hearing aid (principal); H90.3 Sensorineural hearing loss, bilateral
CPT/HCPCS: 92590

== ENCOUNTER 2023-04-27 09:55 | Outpatient (REF) | payer SELFPAY ==
--- NOTE | 2023-04-27 11:16 | MHC.AU.HA3 ---
Hearing Instrument Follow-Up- Binaural Date of Visit: 04/27/23 Right Ear: Make, Model, Color, Serial Number: Oticon Real 1 miniRITE R, Chroma Beige S#[id number] [employer] Project Manager Repair Warranty: 05/20/2026 Water Resources Project Manager Loss and Damage Warranty: 05/20/2026 [facility] Service Plan: None Battery Size: Rechargeable Marble Helper/Slim Tube: 2/85 Earmold/Dome/CShell/SlimTip:acrylic half skeleton slim tip S#[id number] Warranty 08/04/2023 Type of Wax Guard: Dispensed By: [facility] Date of Fitting: Left Ear: Make, Model, Color, Serial Number: Oticon Real 1 miniRITE R, Chroma Beige S#[id number] Water Resources Project Manager Repair Warranty: 05/20/2026 [employer] Project Manager Loss and Damage Warranty: 05/20/2026 [facility] Service Plan: None Battery Size: Rechargeable Marble Helper/Slim Tube: 285 Earmold/Dome/CShell/SlimTip: acrylic half skeleton slim tip S#[id number] Warranty 08/04/2023 Type of Wax Guard: Dispensed By: [facility] Date of Fitting: Follow-Up Summary: Here for fitting. Otoscopy clear Au. Molds fit well. Found left aid to be not amplifying and just emitting static. Tried different indoor landscaper/gardener, no improvement. Requested rapid exchange from [employer]. Rescheduled fitting for next week. Recommendations: Recommendations: Return for fitting as scheduled. Diagnosis Code(s): Primary Diagnosis: H90.3 Bilateral Sensorineural Hearing Loss Signature: Provider: Neil Bergman, [facility]
== END 2023-04-27 09:56 | disposition home or self-care (01) ==
LOC: HO.HAP 09:55
PROVIDERS: Visit Provider Hospitalist
DX: Z13.89 Encounter for screening for other disorder (principal)

== ENCOUNTER 2023-05-04 08:51 | Outpatient (REF) | payer SELFPAY ==
--- NOTE | 2023-05-04 10:06 | MHC.AU.HA2 ---
Hearing Instrument Fitting- Adult- Binaural Date of Visit: 05/04/23 Hearing Instruments Dispensed: Right Ear: Make, Model, Color, Serial Number: Oticon Real 1 miniRITE R, Chroma Beige S#[id number] Event Specialist Food Demonstrator Repair Warranty: 05/20/2026 Event Specialist Food Demonstrator Loss and Damage Warranty: 05/20/2026 [facility] Service Plan: None Battery Size: Rechargeable Pupil Personnel Services Director/Slim Tube: 2/85 Earmold/Dome/CShell/SlimTip: acrylic half skeleton slim tip S#[id number] Warranty 08/04/2023 Type of Wax Guard: prowax Left Ear: Make, Model, Color, Serial Number: Oticon Real 1 miniRITE R, Chroma Beige S#[id number] Event Specialist Food Demonstrator Repair Warranty: 05/20/2026 Event Specialist Food Demonstrator Loss and Damage Warranty: 05/20/2026 [facility] Service Plan: None Battery Size: Rechargeable Pupil Personnel Services Director/Slim Tube: 285 Earmold/Dome/CShell/SlimTip: acrylic half skeleton slim tip S#[id number] Warranty 08/04/2023 Type of Wax Guard: prowax Accessories/Assistive Technology: meat puller [id number] 05/20/2026 Summary of Fitting: Fit with and oriented to binaural Oticon Real 1 R HAs with acrylic skeleton molds. Previous SHAH user. Verified to NAL2 targets. Good subjective comfort and benefit reported, noting she can tell a difference from her old hearing aids immediately. VC enabled, reviewed use. Practiced insertion and removal and demonstrated meat puller use. Not connected to a smartphone at this time. Recommendations: Recommendations: Hearing instrument care and maintenance were discussed and practiced. Please call our clinic with any questions or concerns. Recommendations (Other): Sent up front to schedule follow up in 2 weeks. Diagnosis Code(s): Primary Diagnosis: H90.3 Bilateral Sensorineural Hearing Loss Signature: Provider: Neil Bergman, [facility]
== END 2023-05-04 08:52 | disposition home or self-care (01) ==
LOC: HO.HAP 08:51
PROVIDERS: Visit Provider Hospitalist
DX: Z46.1 Encounter for fitting and adjustment of hearing aid (principal); H90.3 Sensorineural hearing loss, bilateral
CPT/HCPCS: V5262; V5264; V5299

== ENCOUNTER 2023-05-18 08:20 | Outpatient (REF) | payer SELFPAY ==
--- NOTE | 2023-05-18 09:02 | MHC.AU.HA3 ---
Hearing Instrument Follow-Up- Binaural Date of Visit: 05/18/23 Right Ear: Make, Model, Color, Serial Number: Oticon Real 1 miniRITE R, Chroma Beige S#[id number] Dough Cutter Repair Warranty: 05/20/2026 Dough Cutter Loss and Damage Warranty: 05/20/2026 [facility] Service Plan: None Battery Size: Rechargeable Medical Anthropology Director/Slim Tube: 2/85 Earmold/Dome/CShell/SlimTip:acrylic half skeleton slim tip S#[id number] Warranty 08/04/2023 Type of Wax Guard: prowax Dispensed By: [facility] Date of Fittin05/04/2023 Left Ear: Make, Model, Color, Serial Number: Oticon Real 1 miniRITE R, Chroma Beige S#[id number] Dough Cutter Repair Warranty: 05/20/2026 Dough Cutter Loss and Damage Warranty: 05/20/2026 [facility] Service Plan: None Battery Size: Rechargeable Medical Anthropology Director/Slim Tube: 2/85 Earmold/Dome/CShell/SlimTip: acrylic half skeleton slim tip S#[id number] Warranty 08/04/2023 Type of Wax Guard: prowax Dispensed By: [facility] Date of Fittin05/04/2023 Follow-Up Summary: Dariana is very happy with the new hearing aids, hearing so much better than with her old ones. Concerned about wax build up. Molds looks clean. Reviewed wax guard change. Otoscopy clear Au. Declined pairing with phone at this time. Recommendations: Hearing instrument follow-up or maintenance as needed. Please contact our clinic with any questions or concerns. Diagnosis Code(s): Primary Diagnosis: H90.3 Bilateral Sensorineural Hearing Loss Signature: Provider: Neil Bergman, CCC-A
== END 2023-05-18 08:21 | disposition home or self-care (01) ==
LOC: HO.HAP 08:20
PROVIDERS: Visit Provider Family Medicine
DX: Z13.89 Encounter for screening for other disorder (principal)

== ENCOUNTER 2023-06-15 08:20 | Outpatient (AMB) | payer MEDICARE, OTHER, SELFPAY ==
--- NOTE | 2023-06-15 08:34 | A.OFFVIS_ITS ---
Intake Vital Signs 06/15/23 08:46 Height 5 ft 3 in Weight 124 lb BMI 22.0 Intake Visit Reasons: Est Left foot pain ? possible metatarsal fx Intake Note: Dariana is a 77 year old female who presents today for a evaluation for her left foot fx, DOI 06/08/23. Patient reports last Sunday she got up quickly to grab the phone and she rolled her ankle and she caught her self from falling. Patient states that her pain is on the lateral aspect of her foot and ankle. Allergies Penicillins [PCN] Allergy (Mild, Verified 06/15/23 08:46) RASH pravastatin Adverse Reaction (Intermediate, Verified 06/15/23 08:46) body aches HPI Est Left foot pain ? possible metatarsal fx HPI Details 77-year-old female who presents in the o ffice today for an evaluation of left foot pain. The patient has been treated in the office for prior hand complications. The patient was seen at [facility] on 06/11/2023 with a complaint of pain and edema of the left ankle/foot. She was told she had a lateral calcaneal and base of the 5th metatarsal avulsion fracture. She was placed in a walking boot. While in the office today the patient reports last Sunday (06/08/2023) she was g etting up off the couch when her ankle rolled on her. She reports her pain is on the lateral aspect of the left ankle and foot. She states she has been bearing weight on the ankle out of the boot since the injury. [facility] Medical History Wears hearing aid in both ears COVID-19 vaccine series completed Hx of cerebral infarction Dupuytren contracture Hypercholesteremia Hypertension Surgical History Hx of squamous cell carcinoma excision Hx of tonsillectomy Hx of hand surgery H/O colonoscopy Family History Other Mental health disorder Substance abuse Social History Housing: House Are you a primary manager long term care to a significant other at home: No Do you presently have visiting nurse or other home services: No Patient Tobacco Use Status: Never used Tobacco e-Cigarette/Vaping Use: Never Used Second Hand Smoke Exposure: No service: No Current occupational status: retired Current occupational exposures/hazards: No Cognitive needs: No Hearing needs: Yes Vision needs: No Review of Systems Const All systems reviewed & are unremarkable except as noted in HPI and below Physical Exam Vital Signs: BMI result Body Mass Index 22.0 Const General: cooperative and no acute distress Orientation/consciousness: patient oriented x3 Resp Effort & Inspection: normal respiratory effort and able to speak in complete sentences Cardio Peripheral pulses: Peripheral pulses 2+ throughout Skin General skin exam: no rashes or lesions noted Neuro General: patient oriented x3 Extrem Other: Left foot/ankle: Ecchymosis along the lateral aspect of the left ankle, as well as the base of the toes. Tenderness to palpation at the peroneal tendons. Able to dorsiflex, plantarflex, pronate, and supinate with mild pain. Sensation intact. Pedal pulse intact. Office Procedures Fracture Care Fracture Billing Code: Fracture Billing Code Assessment & Plan Assessment & Plan (1) Fracture of metatarsal of left foot, closed: Comment: Avulsion fracture at the base of the 5th metatarsal Code(s): S92.302A - Fracture of unspecified metatarsal bone(s), left foot, initial encounter for closed fracture Qualifiers: Encounter type: initial encounter Fracture alignment: nondisplaced Metatarsal bone: fifth Qualified Code(s): S92.355A - Nondisplaced fracture of fifth metatarsal bone, left foot, initial encounter for closed fracture (2) Moderate left ankle sprain: Code(s): S93.402A - Sprain of unspecified ligament of left ankle, initial encounter Plan Ms. Kilgore is a 77-year-old female who presents in the office today for an evaluation of left foot pain. The patient has been treated in the office for prior hand complications. The patient was seen at [facility] on 06/11/2023 with a complaint of pain and edema of the left ankle/foot. She was told she had a lateral calcaneal and base of the 5th metatarsal avulsion fracture. She was placed in a walking boot. While in the office today the patient reports last Sunday (06/08/2023) she was getting up off the couch when her ankle rolled on her. She reports her pain is on the lateral aspect of the left ankle and foot. She states she has been bearing weight on the ankle out of the boot since the injury. Patient had her boot adjusted in the office today. I educated the patient on gentle ROM exercises to come out of the boot to work on. I instructed her if she is sitting at home she is able to come out of the boot, but she needs to return to the boot when she is going to bear weight on the ankle/foot for support. We discussed the ankle can take months to heal. Follow up will be in 4 weeks with repeat x-rays, or sooner if needed. X-rays of the left foot which were obtained while in the office today and were reviewed by me, Joana Keller PA-C, revealed avulsion fracture at the base of the 5th metatarsal. Orders: Orders XR foot LT min 3V Today M79.673 - Pain in unspecified foot Patient Instructions: Scribed by Genet Nicole medical accounting clerk, for Joana Keller PA-C on 06/15/2023 at 8:24 am, EST. Coding Level of Care Code Est Pt Level 4 (34817) Diagnoses Closed nondisplaced fracture of fifth metatarsal bone of left foot, initial encounter S92.355A Encounter type: initial encounter Fracture alignment: nondisplaced Metatarsal bone: fifth Moderate left ankle sprain S93.402A CPT Codes Fracture Care - Fracture Billing Code: Fracture Billing Code ([id number])
[2023-06-15 08:46] VITALS: BMI 22.0
== END 2023-06-15 09:06 | disposition home or self-care (01) ==
PROVIDERS: PCP Hospitalist; Visit Provider Physician Assistant
DX: S92.355A Nondisplaced fracture of fifth metatarsal bone, left foot, initial encounter for closed fracture (principal); S93.402A Sprain of unspecified ligament of left ankle, initial encounter
CPT/HCPCS: 99213

== ENCOUNTER 2023-06-15 13:11 | Outpatient (REF) | payer MEDICARE, OTHER, SELFPAY ==
--- NOTE | ~2023-06-15 | XR_ITS ---
EXAMINATION: XR FOOT, LEFT CLINICAL INFORMATION: Pain in the foot COMPARISON: None available. TECHNIQUE: AP, lateral, and oblique views of the left foot. FINDINGS: There is a small osseous density seen at the base of the fifth metatarsal which has the appearance of an old fracture. Please correlate with patient's clinical history. No acute fracture, dislocation or destructive process. Small spurring off the posterior calcaneus at the insertion of the Achilles tendon. XR/XR foot LT min 3V IMPRESSION: Mild enthesopathic changes. Probable old ununited fracture at the base of the fifth metatarsal.
== END 2023-06-15 13:12 | disposition home or self-care (01) ==
LOC: HO.HOSX 13:11
PROVIDERS: Visit Provider Physician Assistant
DX: S92.355A Nondisplaced fracture of fifth metatarsal bone, left foot, initial encounter for closed fracture (principal); S93.402A Sprain of unspecified ligament of left ankle, initial encounter
CPT/HCPCS: 73630

== ENCOUNTER 2023-07-11 08:46 | Outpatient (AMB) | payer MEDICARE, OTHER, SELFPAY ==
--- NOTE | 2023-07-11 08:50 | A.OFFPC_ITS ---
Vital Signs 07/11/23 08:51 Height 5 ft 3 in Weight 124 lb 6 oz BMI 22.0 BP 130/70 Blood Pressure Location Lt brachial Position Sitting Pulse 88 Pulse Source Pulse Oximeter Pulse Oximetry (%) 98 Oxygen Delivery Method Room Air Intake Visit Reasons: CPE with f/u labs and health maint Intake Note: Patient is here for her physical today, patient did not get her blood work done due to not having a ride. Allergies Penicillins [PCN] Allergy (Mild, Verified 07/11/23 08:55) RASH pravastatin Adverse Reaction (Intermediate, Verified 07/11/23 08:55) body aches Medication List - Last Reconciled 07/11/23 by Scooby Shafer MD amlodipine 5 mg PO DAILY aspirin 325 mg PO DAILY atorvastatin 40 mg PO DAILY 3 months cholecalciferol (vitamin D3) 10 mcg PO DAILY glucosamine sulfate 2KCl (Glucosamine Relief) 500 mg PO DAILY lisinopril 40 mg PO DAILY terbinafine HCl 1% (Antifungal (terbinafine)) 1 appl topical BID 6 weeks Tobacco use date assessed: 01/16/23 Fall risk assessment: No Falls in past year Last assessed Fall Risk: 07/11/23 Dental Screening Dental Screen Date: 07/11/23 Did you have a dental visit in the last 12 months?: Yes Did you have a dental problem in the last 6 months where you did not have access to dental care?: No Was dental information given to patient?: Patient has dentist HPI CPE with f/u labs and health maint HPI Details 77 y/o female presents for an extended e xam with f/u labs and health maintenance. No recent CPE-labs to review. Blood pressure today 130/70. She is on lisinopril 40mg, amlodipine 5mg daily. Pt reports a cough for a long time - she notes she thinks lisinopril is causing it. A1c today 07/11/23 5.7%. She notes she has a mammogram scheduled in July. Pt reports memory changes. She reports episodes of forgetfulness where she forgets people's names. She reports mother has hx of Alzheimer's. [facility] Medical History Wears hearing aid in both ears COVID-19 vaccine series completed Hx of cerebral infarction Dupuytren contracture Hypercholesteremia Hypertension Surgical History Hx of squamous cell carcinoma excision Hx of tonsillectomy Hx of hand surgery H/O colonoscopy Family History Other Mental health disorder Substance abuse Social History Housing: House Are you a primary career consultant to a significant other at home: No Do you presently have visiting nurse or other home services: No Patient Tobacco Use Status: Never used Tobacco e-Cigarette/Vaping Use: Never Used Second Hand Smoke Exposure: No service: No Current occupational status: retired Current occupational exposures/hazards: No Cognitive needs: No Hearing needs: Yes Vision needs: No Questionnaire PHQ-9 Over the last 2 weeks, how often have you been bothered by any of the following problems? 1. Little interest or pleasure in doing things: not at all 2. Feeling down, depressed, or hopeless: not at all 3. Trouble falling or staying asleep, or sleeping too much: not at all 4. Feeling tired or having little energy: not at all 5. Poor appetite or overeating: not at all 6. Feeling bad about yourself - or that you are a failure or have let yourself or your family down: not at all 7. Trouble concentrating on things, such as reading the newspaper or watching television: not at all 8. Moving or speaking so slowly that other people could have noticed. Or the opposite - being so fidgety or restless that you have been moving around a lot more than usual: not at all 9. Thoughts that you would be better off or of hurting yourself in some way: not at all Total score: 0 Depression Screening Interpretation: Negative Depression Screening Done: Yes [id number] - PHQ-9 Billing: Yes Source: Developed by Drs. Ricky Lafleur, Dara Krueger, Jordan Ly and colleagues, with an educational stacey from [employer]. Thrive Questionnaire Date Thrive assessed: 07/11/23 I am a: Patient What is your living situation today?: I have a steady place to live Within the past 12 months, did the food you bought not last and you didn't have the money to get more?: Never true Within the past 12 months, did you worry whether your food would run out before you got money to buy more?: Never true Do you have trouble paying for medicines?: No Do you have trouble getting transportation to medical appointments?: No Do you have trouble paying your heating and electricity bill?: No Do you have trouble taking care of your child, family member or friend?: No Do you have trouble with day-to-day activities such as bathing, preparing meals, shopping, managing finances, etc.?: No Are you currently unemployed and looking for a job?: No Are you interested in more education?: No THRIVE Score: 0 AUDIT C Alcohol Use Questionnaire (AUDIT-C) 1. How often do you have a drink containing alcohol?: Never 3. How often do you have six or more drinks on one occasion?: Never Total Score: 0 ALLEY-7 AMB Questionnaire ALLEY-7 Date ALLEY - 7 assessed: 07/11/23 Feeling nervous, anxious, or on edge: 0 = Not at all Not being able to stop or control worryin = Not at all Worrying too much about different things: 0 = Not at all Trouble relaxin = Not at all Being so restless that it is hard to sit still: 0 = Not at all Becoming easily annoyed or irritable: 0 = Not at all Feeling afraid as if something awful might happen: 0 = Not at all Total ALLEY-7 score (0-4 normal; 5-9 mild; 10-14 moderate; 15-21 severe): 0 Source: Developed by Drs. Ricky Lafleur, Dara Krueger, Jordan Ly and colleagues, with an educational stacey from [employer]. ALLEY-7 Assessment Billing ALLEY-7 Assessment Tool: ALLEY-7 Assessment 62618 Review of Systems Const Denies chills, Denies fatigue, Denies fever(s), Denies headache(s) and Denies weakness Eyes Denies change in vision ENT Denies dizziness, Denies headache(s), Denies hearing loss, Denies nasal congestion, Denies sinus pain, Denies sinus pressure and Denies sore throat Card Denies chest pain, Denies lightheadedness, Denies dyspnea and Denies other (palpitations) Resp Denies cough, Denies dyspnea and Denies wheezing GI Denies abdominal pain, Denies melena, Denies hematochezia, Denies change in bowel habits, Denies dyspepsia and Denies nausea Denies hematuria and Denies dysuria Musc Denies abnormal gait, Denies myalgias, Denies arthralgias, Denies numbness and Denies tingling Skin/Breast Denies rash, Denies unusual bruising and Denies wounds Neuro Denies abnormal gait, Denies dizziness, Denies headache(s), Denies memory loss, Denies numbness, Denies Sensory deficit (Neuro), Denies tingling and Denies weakness Psych Denies anxiety, Denies depression and Denies memory loss Endo Denies cold intolerance, Denies fatigue, Denies heat intolerance, Denies polydipsia and Denies polyuria Geronimo/Lymph Denies easy bleeding and Denies easy bruising Aller/Immun Denies wheezing Physical exam (Primary Care) Vital Signs: Last Vital Signs Pulse 88 07/11/23 08:51 BP 130/70 07/11/23 08:51 Pulse Ox 98 07/11/23 08:51 Oxygen Delivery Method Room Air 07/11/23 08:51 BMI result Body Mass Index 22.0 Tobacco/Smoking Status: Tobacco use Status Tobacco use date assessed 01/16/23 07/11/23 09:03 Patient Tobacco Use Status Never used Tobacco 07/11/23 09:03 e-Cigarette/Vaping Use Never Used 07/11/23 09:03 PHQ-9: PHQ-9 Score PHQ-9: Total score 0 07/11/23 09:28 Depression Screening Interpretation: Negative Thrive Assessment: Date of Thrive Assessment Date Thrive assessed 07/11/23 07/11/23 09:03 Const General: no acute distress, well developed, alert and awake Nutritional Appearance: well nourished Orientation/consciousness: patient oriented x3 HENMT Head: Yes normocephalic and Yes atraumatic Ears: hearing grossly normal bilaterally and TM's normal bilaterally General nose exam: Normal external nose present and Normal nares present Mouth: Normal oral and palatal mucosa present and moist mucous membranes Teeth and gingiva: dentition normal Throat: Yes posterior oropharynx normal Eyes General: appearance normal, both eyes and all related structures Pupils: Equal, round and reactive pupils present and Pupil accommodation reflex normal EOM: EOMs intact bilaterally Neck Neck: Yes normal visual inspection, Yes no lymphadenopathy and Yes trachea midline Thyroid: Thyroid normal Carotids: no bruits Lymphatic: no lymphadenopathy noted Chest Chest palpation & inspection: normal inspection of the chest Resp Effort & Inspection: normal respiratory effort Auscultation: clear to auscultation bilaterally Cardio Rate: regular rate Rhythm: regular rhythm Heart sounds: S1 normal heart sound present, S2 normal heart sound present, no gallops, no murmurs and no rubs Bruits: no abdominal aortic bruits and no carotid bruits GI Palpation (GI): No Abdominal aortic bruit present, Soft to palpation, nontender, No hepatosplenomegaly present and No Rebound tenderness present Auscultation: normal bowel sounds General: Yes no CVA tenderness Back/Spine/Pelvis Back: no CVA tenderness Cervical Spine: cervical ROM normal and No Cervical spine tenderness Thoracic/Lumbar Spine: thoraco-lumbar ROM normal, No pain with thoraco-lumbar ROM, No thoracic spinal tenderness and No lumbar spinal tenderness Skin Lesions: no lesions Rashes: no rashes Trauma: no lacerations or abrasions Wounds: no wounds Nails: normal Neuro General: patient oriented x3 Cranial nerves: Yes Equal, round and reactive pupils present Cognition (Neuro): normal cognition Gait exam (Neuro): Normal gait present Motor exam (neuro): 5/5 motor strength present throughout Sensory Exam: No Sensory deficit (Neuro) Deep tendon reflexes (DTR's): Right patellar reflex intensity grade: 2+ and Left patellar reflex intensity grade: 2+ Extrem General: Yes normal to inspection and No edema Psych Appearance: grossly normal Affect: normal affect Attitude: cooperative Thought process: Normal thought process present Results AMB Hemoglobin A1c AMB Hemoglobin A1c 5.7 % Last Edit by Marialuisa Mcelroy CMA on 07/11/23 09:50 Assessment and Plan Assessment & Plan (1) Hypertension: Code(s): I10 - Essential (primary) hypertension Plan: Blood?pressure?is?well?controlled?but?patient?notes?that?she?has?had?a?longstand ing?dry?annoying?cough?and?is?on?lisinopril?as?well?as?amlodipine. Will?change?lisinopril?to?losartan?and?continue?amlodipine (2) Pre-diabetes: Code(s): R73.03 - Prediabetes Plan: Patient?has?had ?some?elevated?fasting?blood?sugars?and?A1c?today?is?5.7%;?pre?diabetes We?discussed?a?diet?lower?in?sugars?and?starches We?can?follow?this (3) Screening for osteoporosis: Code(s): Z13.820 - Encounter for screening for osteoporosis Plan: Patient?has?not?had?a?bone?density?test?in?the?last?2?years. Bone?density?test?or (4) Breast cancer screening by mammogram: Code(s): Z12.31 - Encounter for screening mammogram for malignant neoplasm of breast Plan: Mammogram?last?May?was?negative?for?malignancy.??She?is?scheduled?for?a?mammogra m?again?next?month. Order?is?in (5) Memory changes: Code(s): R41.3 - Other amnesia Plan: Patient?notes?some?memory?changes. Family?history?of?Alzheimer's-mother Referred?to?neuropsychiatry (6) Fracture of metatarsal of left foot, closed: Comment: Avulsion fracture at the base of the 5th metatarsal Code(s): S92.302A - Fracture of unspecified metatarsal bone(s), left foot, initial encounter for closed fracture Qualifiers: Encounter type: initial encounter Fracture alignment: nondisplaced Metatarsal bone: fifth Qualified Code(s): S92.355A - Nondisplaced fracture of fifth metatarsal bone, left foot, initial encounter for closed fracture Plan: Follow-up?with?ortho?as?recommended (7) Screening for colon cancer: Code(s): Z12.11 - Encounter for screening for malignant neoplasm of colon Plan: Last?colonoscopy?at?age?70?and?she?was?told?to?follow-up?at?age?80. 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?so?will?refer?to?[facility]?GI?when?needed (8) Normal physical exam: Code(s): Z00.00 - Encounter for general adult medical examination without abnormal findi ngs Plan: 77-year-old?female?presents?for?an?extended?exam Encouraged?healthy?diet?and?active?lifestyle Orders: Orders XR DEXA axial skeleton Today M81.0 - Age-related osteoporosis without current pathological fracture AMB Hemoglobin A1c Today Z13.9 - Encounter for screening, unspecified MM tomosynthesis screening BI Today Z12.31 - Encounter for screening mammogram for malignant neoplasm of breast Referrals Neuropsychiatry Referral R41.3 - Other amnesia Medications: New losartan 100 mg PO DAILY 90 days 90 tabs 3RF Discontinued lisinopril Discontinued Reason: Doctor's Order 40 mg PO DAILY 90 tabs 3RF Coding Level of Care Code Est Pt Level 4 (49299) Diagnoses Hypertension I10 Pre-diabetes R73.03 Screening for osteoporosis Z13.820 Breast cancer screening by mammogram Z12.31 Memory changes R41.3 Closed nondisplaced fracture of fifth metatarsal bone of left foot, initial encounter S92.355A Encounter type: initial encounter Fracture alignment: nondisplaced Metatarsal bone: fifth Screening for colon cancer Z12.11 Normal physical exam Z00.00 Additional Codes ALLEY-7 Assessment Billing - ALLEY-7 Assessment Tool: ALLEY-7 Assessment [id number] ([id number])
[2023-07-11 08:51] VITALS: BP 130/70; PULSE 88; O2SAT 98; BMI 22.0
== END 2023-07-11 10:20 | disposition home or self-care (01) ==
PROVIDERS: PCP Hospitalist; Visit Provider Family Medicine
DX: I10 Essential (primary) hypertension (principal); R73.03 Prediabetes; Z13.820 Encounter for screening for osteoporosis; Z12.31 Encounter for screening mammogram for malignant neoplasm of breast; R41.3 Other amnesia; S92.355A Nondisplaced fracture of fifth metatarsal bone, left foot, initial encounter for closed fracture; Z12.11 Encounter for screening for malignant neoplasm of colon; Z00.00 Encounter for general adult medical examination without abnormal findings; Z13.9 Encounter for screening, unspecified
CPT/HCPCS: 83036; 99214

== ENCOUNTER 2023-07-11 10:04 | Outpatient (REF) | payer MEDICARE, OTHER, SELFPAY ==
[2023-07-11 11:21] LABS: MANUAL DIFF FLAG NO
[2023-07-11 11:43] LABS: Appearance Urine Clear; Color Urine Yellow; Glucose Urine UA Negative (Negative); Leukocyte Esterase Urine Negative (Negative); Nitrite Urine Negative (Negative); Specific Gravity - Urine <= 1.005 (1.005-1.025); UMIC TRIGGER UA YES; Urine Blood Trace (Negative); Urine Ketones Negative (Negative); Urine Protein Negative (Neg-Trace)
[2023-07-11 11:46] LABS: Basophils Absolute Auto 0.1 X10*3/uL (0.0-0.2); Basophils Percent Auto 1.2 % (0-2); Eosinophils Absolute Auto 0.3 X10*3/uL (0.0-0.4); Hematocrit 42.7 % (37.0-47.0); Hemoglobin 14.5 g/dl (12.0-16.0); Imm Gran Abs Auto 0.02 X10*3/uL (0.00-0.03); Imm Gran Pct Auto 0.3 % (0.0-0.4); Lymphocytes Absolute Auto 1.5 X10*3/uL (1.2-4.9); Lymphocytes Percent Auto 19.9 % (20-40); Mean Corpuscular Hemoglobin 31.7 pg (27.0-33.0); Mean Corpuscular Volume 93.4 fL (80.0-98.0); Mean Platelet Volume 10.4 fL (9.4-12.3); Monocytes Absolute Auto 0.4 X10*3/uL (0.1-1.2); Neutrophils Percent Auto 68.6 % (45-73); Platelet Count 334 X10*3/uL (160-400); Red Blood Count 4.57 X10*6/uL (4.20-5.50); Red Cell Distribution Width 12.9 % (11.0-16.0); White Blood Count 7.3 X10*3/uL (4.8-10.8)
[2023-07-11 11:47] LABS: Bacteria Urine None Seen (None Seen); Hyaline Casts Urine 0-2 /LPF (0-2); RBC Urine 0-2 /HPF (0-2); Squamous Epithelial Cell Urine 0-2 /HPF (0-2); WBC Urine 0-5 /HPF (0-5)
[2023-07-11 12:25] LABS: Alanine Aminotransferase 21 U/L (0-31); Albumin Level 4.7 g/dL (3.5-5.0); Alkaline Phosphatase 99 U/L (39-117); Anion Gap 13 (12-20); Aspartate Amino Transferase 23 U/L (5-31); Bilirubin Total 1.7 mg/dL (0.0-1.0); Blood Urea Nitrogen 10 mg/dL (9-16); Carbon Dioxide 27 mmol/L (22-29); Chloride 99 mmol/L (96-108); Cholesterol 147 mg/dL (<200); Estimated Glomerular Filt Rate > 60; Glucose Fasting 124 mg/dL (60-99); HDL Cholesterol 67 mg/dL (>40); LDL Cholesterol Calculated 69 mg/dL (<100); Potassium 4.3 mmol/L (3.3-5.1); Sodium 135 mmol/L (135-145); Triglycerides 55 mg/dL (<150)
[2023-07-11 12:35] LABS: Creatinine Urine 26.31 mg/dL; Microalbumin Urine < 5.0 mg/L
[2023-07-11 12:43] LABS: TSH reflex Free T4 1.66 uIU/mL (0.32-4.0)
== END 2023-07-11 10:05 | disposition home or self-care (01) ==
LOC: HO.WFDLDS 10:04
PROVIDERS: Visit Provider Family Medicine
DX: Z00.00 Encounter for general adult medical examination without abnormal findings (principal); Z13.9 Encounter for screening, unspecified; I10 Essential (primary) hypertension
CPT/HCPCS: 36415; 80053; 80061; 81001; 82043; 82570; 84443; 85025

== ENCOUNTER 2023-07-13 09:08 | Outpatient (REF) | payer MEDICARE, OTHER, SELFPAY ==
--- NOTE | ~2023-07-13 | XR_ITS ---
EXAMINATION: XR FOOT, LEFT CLINICAL INFORMATION: Pain in the foot COMPARISON: X-ray the left foot May 2023 TECHNIQUE: AP, lateral, and oblique views of the left foot. FINDINGS: There is a small ununited likely avulsion-type fracture the base of the fifth metatarsal measuring 3 mm. This is unchanged Remaining bones joints soft tissues unremarkable. XR/XR foot LT min 3V IMPRESSION: Small unchanged ununited likely avulsion-type fracture of the base of the fifth metatarsal.
== END 2023-07-13 09:09 | disposition home or self-care (01) ==
LOC: HO.HOSX 09:08
PROVIDERS: Visit Provider Physician Assistant
DX: S92.355D Nondisplaced fracture of fifth metatarsal bone, left foot, subsequent encounter for fracture with routine healing (principal); S93.402D Sprain of unspecified ligament of left ankle, subsequent encounter; M79.672 Pain in left foot; X58.XXXD Exposure to other specified factors, subsequent encounter
CPT/HCPCS: 73630

== ENCOUNTER 2023-07-13 09:39 | Outpatient (AMB) | payer MEDICARE, OTHER, SELFPAY ==
--- NOTE | 2023-07-13 09:48 | MHC.OFFVIS ---
Vital Signs 07/13/23 09:51 Height 5 ft 3 in Weight 124 lb BMI 22.0 Intake Visit Reasons: OV-Left foot pain possible metatarsal fx-w/xrays Intake Note: Emma is a 77 year old female who presents today for a follow up of her left 5th MT fracture DOI 06/08/23. Patient reports that she is doing well , she does not have any pain. She did feel some soreness with the xray. Denies numbness and tingling. She would like to discontinue boot and be able to drive Allergies Penicillins [PCN] Allergy (Mild, Verified 07/13/23 09:53) RASH pravastatin Adverse Reaction (Intermediate, Verified 07/13/23 09:53) body aches HPI HPI OV-Left foot pain possible metatarsal fx-w/xrays: Details: 77-year-old female who presents in the office today for a follow up of a moderate left ankle sprain and a 5th metatarsal fracture. I last saw the patient in the office on 06/15/2023 when she was educated gentle ROM exercises to work on out of the boot. While in the office today the patient reports she is doing well and states she does not have any pain. She reports some soreness with the x-rays. She denies numbness or tingling. She would also like to discontinue the use of the boot and would like to be cleared to drive. [facility] Medical History Wears hearing aid in both ears COVID-19 vaccine series completed Hx of cerebral infarction Dupuytren contracture Hypercholesteremia Hypertension Surgical History Hx of squamous cell carcinoma excision Hx of tonsillectomy Hx of hand surgery H/O colonoscopy Family History Other Mental health disorder Substance abuse Social History Housing: House Are you a primary home health care social worker to a significant other at home: No Do you presently have visiting nurse or other home services: No Patient Tobacco Use Status: Never used Tobacco e-Cigarette/Vaping Use: Never Used Second Hand Smoke Exposure: No service: No Current occupational status: retired Current occupational exposures/hazards: No Cognitive needs: No Hearing needs: Yes Vision needs: No Review of Systems Const All systems reviewed & are unremarkable except as noted in HPI and below Physical Exam Vital Signs: BMI result Body Mass Index 22.0 Const General: cooperative, healthy appearing and no acute distress Resp Effort & Inspection: normal respiratory effort and able to speak in complete sentences Cardio Rate: regular rate Peripheral pulses: Peripheral pulses 2+ throughout GI Palpation (GI): Soft to palpation Skin Lesions: no lesions Rashes: no rashes Extrem Other: Left ankle: Normal to inspection. No ecchymosis, erythema, or edema. No tenderness to palpation along the 5th metatarsal at the fracture site. Full ROM in all planes. NVI. Assessment & Plan Assessment & Plan (1) Fracture of metatarsal of left foot, closed: Comment: Avulsion fracture at the base of the 5th metatarsal Code(s): S92.302A - Fracture of unspecified metatarsal bone(s), left foot, initial encounter for closed fracture Category: Medical Qualifiers: Encounter type: initial encounter Fracture alignment: nondisplaced Metatarsal bone: fifth Qualified Code(s): S92.355A - Nondisplaced fracture of fifth metatarsal bone, left foot, initial encounter for closed fracture (2) Moderate left ankle sprain: Code(s): S93.402A - Sprain of unspecified ligament of left ankle, initial encounter Category: Medical Qualifiers: Encounter type: subsequent encounter Qualified Code(s): S93.402D - Sprain of unspecified ligament of left ankle, subsequent encounter Plan Ms. Kilgore is a 77-year-old female who presents in the office today for a follow up of a moderate left ankle sprain and a 5th metatarsal fracture. I last saw the patient in the office on 06/15/2023 when she was educated gentle ROM exercises to work on out of the boot. While in the office today the patient reports she is doing well and states she does not have any pain. She reports some soreness with the x-rays. She denies numbness or tingling. She would also like to discontinue the use of the boot and would like to be cleared to drive. Patient may discontinue the use of the boot. She may wean back into normal activities as tolerated, using pain as her guide. She was educated that she may have edema in the ankle for up to one year after the injury. Follow up will be PRN, or sooner if needed. X-rays of the left ankle which were obtained while in the office today and were reviewed by me, Joana Keller PA-C, revealed routine healing of a left 5th metatarsal fracture. Orders: Orders XR foot LT min 3V Today M79.673 - Pain in unspecified foot Patient Instructions: Scribed by Genet Nicole, ophthalmic medical technician, for Joana Keller PA-C on 07/13/2023 at 9:46 am, EST.
[2023-07-13 09:51] VITALS: BMI 22.0
== END 2023-07-13 10:03 | disposition home or self-care (01) ==
PROVIDERS: PCP Hospitalist; Visit Provider Physician Assistant
DX: S92.355A Nondisplaced fracture of fifth metatarsal bone, left foot, initial encounter for closed fracture (principal); S93.402D Sprain of unspecified ligament of left ankle, subsequent encounter
CPT/HCPCS: 99213

== ENCOUNTER → 2023-07-26 13:20 | Outpatient (AMB) | payer MEDICARE, OTHER, SELFPAY ==
--- NOTE | 2023-07-26 13:11 | MHC.PC.OV ---
Intake Visit Reasons: f/u CPE-labs via telemedicine Intake Note: Patient is here to follow up on labs today. Allergies Penicillins [PCN] Allergy (Mild, Verified 07/13/23 09:53) RASH pravastatin Adverse Reaction (Intermediate, Verified 07/13/23 09:53) body aches Tobacco use date assessed: 07/26/23 Fall risk assessment: No Falls in past year Last assessed Fall Risk: 07/26/23 Dental Screening Dental Screen Date: 07/11/23 HPI f/u CPE-labs via telemedicine HPI Details 77 y/o female presents to f/u CPE-labs via telemedicine. Labs were drawn 07/11/23. Reviewed labs with pt. Elevated fasting glucose of 124 and A1c 5.7%. Triglycerides 55. TC 147. LDL 69. HDL 67. She is tolerating losartan - had switched her off lisinopril due to a cough but pt reports cough has not disappeared. Had made referral to [facility] clinic but she states they have not contacted her yet. [facility] Medical History Wears hearing aid in both ears COVID-19 vaccine series completed Hx of cerebral infarction Dupuytren contracture Hypercholesteremia Hypertension Surgical History Hx of squamous cell carcinoma excision Hx of tonsillectomy Hx of hand surgery H/O colonoscopy Family History Other Mental health disorder Substance abuse Social History Housing: House Are you a primary director of patient care to a significant other at home: No Do you presently have visiting nurse or other home services: No Patient Tobacco Use Status: Never used Tobacco e-Cigarette/Vaping Use: Never Used Second Hand Smoke Exposure: No service: No Current occupational status: retired Current occupational exposures/hazards: No Cognitive needs: No Hearing needs: Yes Vision needs: No Questionnaire Thrive Questionnaire Date Thrive assessed: 07/11/23 ALLEY-7 AMB Questionnaire ALLEY-7 Date ALLEY - 7 assessed: 07/11/23 Source: Developed by Drs. Ricky Lafleur, Dara B.Jordan Santiago and colleagues, with an educational stacey from [employer]. Review of Systems Const Denies chills, Denies fatigue, Denies fever(s), Denies headache(s) and Denies weakness ENT Denies dizziness and Denies headache(s) Card Denies dyspnea Resp Denies cough, Denies dyspnea, Denies wheezing and Denies other (shortness of breath) Musc Denies numbness and Denies tingling Neuro Denies dizziness, Denies headache(s), Denies numbness, Denies tingling and Denies weakness Psych Denies anxiety and Denies depression Endo Denies fatigue Aller/Immun Denies wheezing Physical exam (Primary Care) Tobacco/Smoking Status: Tobacco use Status Tobacco use date assessed 07/26/23 07/26/23 13:16 Patient Tobacco Use Status Never used Tobacco 07/26/23 13:16 e-Cigarette/Vaping Use Never Used 07/26/23 13:16 Thrive Assessment: Date of Thrive Assessment Date Thrive assessed 07/11/23 07/26/23 13:16 Const General: well developed; No acute distress Nutritional Appearance: well nourished Orientation/consciousness: patient oriented x3 HENMT Head: Yes normocephalic and Yes atraumatic Eyes General: appearance normal, both eyes and all related structures Pupils: Equal, round and reactive pupils present EOM: EOMs intact bilaterally Resp Effort & Inspection: normal respiratory effort Neuro General: patient oriented x3 and gait normal Cranial nerves: Yes Equal, round and reactive pupils present Psych Affect: normal affect Telehealth Telehealth Telehealth Platform: Telephone Location of provider rendering services: practice address Location of patient: address on file Patient Identification confirmed using: Name, : Yes Telehealth method: voice only Patient verbally consented to treatment: Yes Patient verbally consented to billing insurance company: Yes Patient informed of any privacy concerns related to visit: Yes Minutes spent on Phone/Video with Pt.: 8 Assessment and Plan Assessment & Plan (1) Pre-diabetes: Code(s): R73.03 - Prediabetes Plan: A1c?5.7%. Still?pre?diabetes?range. Encouraged?diet?low?in?sugars?and?starches (2) Hypertension: Code(s): I10 - Essential (primary) hypertension Plan: Had?changed?blood?pressure?medication?from?lisinopril?to?losartan?due?to?cough She?is?tolerating?losartan?though?she?says?the?cough?has?not?resolved. Asked?her?to?check?her?blood?pressures?at?home?since?she?has?a?blood?pressure?monitor.??She?will?call?me?if?blood?pressure?is?not?well?controlled. (3) Cough: Code(s): R05.9 - Cough, unspecified Plan: Ongoing?chronic?cough.??We?stopped?lisinopril?and?started?losartan?due?to?cough.??This?has?not?resolved?with?changing?lisinopril?to?losartan. Ordered?a?chest?x-ray?but?patient?wants?to?hold?off?to?see?if?the?cough?goes?away. Encouraged?her?that?she?can?get?the?chest?x-ray?and?call?for?an?additional?appointment?if?not?resolving?in?the?next?week?or?2.??Patient?agrees. (4) Memory changes: Code(s): R41.3 - Other amnesia Plan: Had?referred?patient?to?[facility]?memory?clinic. She?wants?to?hold?off?on?this?for?now. Orders: Orders XR chest 2V Today R05.9 - Cough, unspecified Coding Level of Care Code Tele Est Pt Level 2 (88546) Diagnoses Pre-diabetes R73.03 Hypertension I10 Cough R05.9 Memory changes R41.3
== END ==
PROVIDERS: PCP Hospitalist; Visit Provider Family Medicine
DX: R73.03 Prediabetes (principal); I10 Essential (primary) hypertension; R05.9 Cough, unspecified; R41.3 Other amnesia
CPT/HCPCS: 99441

== ENCOUNTER 2023-08-21 07:49 | Outpatient (REF) | payer MEDICARE, OTHER, SELFPAY ==
--- NOTE | ~2023-08-21 | MM_ITS ---
EXAMINATION: BONE DENSITOMETRY CLINICAL INDICATION: Age-related osteoporosis without current pathological fracture. COMPARISON: Baseline BD dated 02/18/2013. TECHNIQUE: Using a [employer] DXA System (software version: 13.1) manufactured by [employer], dual-energy x-ray absorptiometry was performed of the lumbar spine and left hip. The images are of good technical quality. Summary results are attached. FINDINGS: LEFT FEMUR, NECK: Current: BMD 0.873 g/cm2, Z-score 1.1, T-score -1.2, osteopenia. Baseline: BMD 0.931 g/cm2. LEFT FEMUR, TOTAL: Current: BMD 0.957 g/cm2, Z-score 1.7, T-score -0.4, normal, 5.4% decrease from baseline (<5% change is not significant). Baseline: BMD 1.012 g/cm2. AP SPINE L1-L4: Current: BMD 1.301 g/cm2, Z-score 3.1, T-score 1.0, normal, 0.3% decrease from baseline (<5% change is not significant). Baseline: BMD 1.305 g/cm2. IDENTIFIED RISK FACTORS: Menopause, osteoporosis. HISTORY OF FRACTURE: None listed. MEDICATIONS: Vitamin D. MM/XR DEXA axial skeleton IMPRESSION: 1. DIAGNOSIS: Osteopenia based on the lowest T-score value of -1.2 in the femoral neck applying World Health Organization criteria. 2. 10-YEAR FRACTURE RISK PREDICTION, FRAX: Major osteoporotic fracture (clinical spine, forearm, hip or shoulder) 11.5%. Hip fracture 2.3%. 3. Treatment Recommendations: NOF guidelines recommend consideration for treatment in postmenopausal women and men age 50 and older presenting with the following: -A hip or vertebral (clinical or morphometric) fracture. -T-score less than or equal to -2.5 at the femoral neck or spine after appropriate evaluation to exclude secondary causes. -Low bone mass at the hip or spine and a 10-year fracture probability by FRAX of greater than or equal to 3% for hip fracture or greater than or equal to 20% for major osteoporotic fracture based on the [place] adapted WHO algorithm. 4. Other Recommendations: All treatment decisions require clinical judgment and consideration of individual patient factors, including patient preferences, comorbidities, previous drug use, risk factors not captured in the FRAX model (e.g. frailty, falls, vitamin D deficiency, increased bone turnover, interval significant decline in bone density) and possible under or overestimation of fracture risk by FRAX. Additional medical evaluation for secondary cause of low bone mineral density may be appropriate. FUTURE SCAN RECOMMENDATION: People with diagnosed cases of osteoporosis or at high risk for fracture should have regular bone mineral density tests. For patients eligible for Medicare, routine testing is allowed once every 2 years. The testing frequency can be increased to one year for patients who have rapidly progressing disease, those who are receiving or discontinuing medical therapy to restore bone mass, or have additional risk factors.
== END 2023-08-21 07:50 | disposition home or self-care (01) ==
LOC: HO.MAMMO 07:49
PROVIDERS: PCP Family Medicine; Visit Provider Family Medicine
DX: Z12.31 Encounter for screening mammogram for malignant neoplasm of breast (principal); Z13.820 Encounter for screening for osteoporosis; M81.0 Age-related osteoporosis without current pathological fracture; Z78.0 Asymptomatic menopausal state
CPT/HCPCS: 77063; 77067; 77080

== ENCOUNTER → 2023-08-21 08:45 | Outpatient (BNV) | payer MEDICARE, OTHER, SELFPAY | PROVIDERS: PCP Family Medicine; Visit Provider Radiology Diagnostic Radiology | DX: Z12.31 Encounter for screening mammogram for malignant neoplasm of breast (principal) | CPT/HCPCS: 77063; 77067 ==

== ENCOUNTER 2023-09-03 10:26 | Emergency (ER) | payer MEDICARE, OTHER, SELFPAY ==
--- NOTE | 2023-09-03 | ECG_ITS ---
Test Reason : TACHYCARDIA Blood Pressure : / mmHG Vent. Rate : 100 BPM Atrial Rate : 100 BPM P-R Int : 176 ms QRS Dur : 118 ms QT Int : 370 ms P-R-T Axes : 080 -56 067 degrees QTc Int : 477 ms Normal sinus rhythm Left axis deviation Minimal voltage criteria for LVH, may be normal variant ( Henrry product ) Anterior infarct , age undetermined Abnormal ECG No previous ECGs available Referred By: Generic ED Physician Electronically Signed By:WILSON ARAMBULA
--- NOTE | ~2023-09-03 | US_ITS ---
EXAMINATION: US VENOUS ULTRASOUND WITH DOPPLER LOWER EXTREMITY, RIGHT CLINICAL INFORMATION: Calf pain COMPARISON: None available. TECHNIQUE: Ultrasound of the deep veins is performed from the hip to the calf with compression sonography and color and pulse Doppler assessment. Spectral analysis with color-flow imaging is performed. FINDINGS: There is normal venous compression and respiratory variation and augmented flow. The visualized common femoral vein, superficial femoral vein, profunda femoral vein, popliteal vein, and the trifurcation region shows no evidence of deep venous thrombosis. There is no significant popliteal fossa cyst. Contralateral left common femoral vein appears normal. If the patient's symptoms persist, followup ultrasound in 5 days 7 days might be of value to exclude proximal propagation from a non-visualized calf vein. US/US venous duplex LE RT IMPRESSION: No DVT demonstrated in the right lower extremity.
[2023-09-03 10:33] VITALS: BP 170/78; PULSE 127; RESP 18; TEMP 36; O2SAT 98; BMI 23.9
[2023-09-03 11:15] LABS: MANUAL DIFF FLAG NO
[2023-09-03 11:19] LABS: Basophils Absolute Auto 0.1 X10*3/uL (0.0-0.2); Eosinophils Absolute Auto 0.1 X10*3/uL (0.0-0.4); Eosinophils Percent Auto 1.2 % (0-4); Hematocrit 38.5 % (37.0-47.0); Hemoglobin 13.3 g/dl (12.0-16.0); Imm Gran Abs Auto 0.01 X10*3/uL (0.00-0.03); Imm Gran Pct Auto 0.1 % (0.0-0.4); Lymphocytes Percent Auto 14.3 % (20-40); Mean Corpuscular HGB Conc 34.5 g/dl (31.0-35.0); Mean Corpuscular Volume 92.8 fL (80.0-98.0); Mean Platelet Volume 10.1 fL (9.4-12.3); Monocytes Absolute Auto 0.4 X10*3/uL (0.1-1.2); Monocytes Percent Auto 6.4 % (2-11); Neutrophils Absolute Auto 5.3 x10*3/uL (2.0-8.3); Platelet Count 296 X10*3/uL (160-400); Red Blood Count 4.15 X10*6/uL (4.20-5.50); Red Cell Distribution Width 12.8 % (11.0-16.0); White Blood Count 6.8 X10*3/uL (4.8-10.8)
[2023-09-03 11:31] LABS: Alanine Aminotransferase 20 U/L (0-31); Albumin Level 4.3 g/dL (3.5-5.0); Alkaline Phosphatase 91 U/L (39-117); Anion Gap 11 (12-20); Aspartate Amino Transferase 21 U/L (5-31); Bilirubin Total 1.4 mg/dL (0.0-1.0); Blood Urea Nitrogen 11 mg/dL (9-16); Calcium 9.5 mg/dL (8.4-10.2); Carbon Dioxide 23 mmol/L (22-29); Chloride 102 mmol/L (96-108); Creatinine Clr Calc Pharmacy 52.4; Estimated Glomerular Filt Rate > 60; Glucose Random 135 mg/dL (60-115); Sodium 132 mmol/L (135-145); Total Protein 7.1 g/dL (6.5-8.0)
[2023-09-03 11:40] LABS: Troponin-I High Sensitivity 4.7 ng/L (<3.5-17.0)
--- NOTE | 2023-09-03 12:08 | ED_ITS ---
HPI - Neuro Symptoms/Deficit General Chief Complaint: Neuro Symptoms/Deficit Stated Complaint: R side weakness-Stroke? Time Seen by Provider: 09/03/23 20:12 Source: patient, RN notes reviewed and old records reviewed Mode of arrival: ambulatory Limitations: no limitations History of Present Illness ED Provider: Ramiro HPI Narrative: 78-year-old female with past medical history significant for osteoporosis, prediabetes, hyperlipidemia, hypertension presents for evaluation of right leg and calf pain. Patient reports that yesterday she had a brief episode of dizziness while in the shower. She states that the episode lasted about 30 seconds, she states it was mild and she did not feel like she was going to pass out or fall down This self-resolved She complains of right leg pain for the last 2 days. She does take aspirin. Patient reports that she has occasional numbness to the left leg and arm not currently She states that she global her symptoms and became concerned for a stroke Related Data Home Medications ?Medication ?Instructions ?Recorded ?Confirmed glucosamine sulfate 2KCl 500 mg 500 mg PO DAILY 07/14/20 07/11/23 capsule (Glucosamine Relief) aspirin 325 mg tablet 325 mg PO DAILY 10/26/20 07/11/23 cholecalciferol (vitamin D3) 10 10 mcg PO DAILY 01/16/23 07/11/23 mcg (400 unit) capsule Previous Rx's ?Medication ?Instructions ?Recorded terbinafine HCl 1 % topical cream 1 appl topical BID 6 weeks #30 05/25/22 (Antifungal (terbinafine)) grams amlodipine 5 mg tablet 5 mg PO DAILY #90 tabs 03/15/23 atorvastatin 40 mg tablet 40 mg PO DAILY 3 months #90 tabs 03/15/23 losartan 100 mg tablet 100 mg PO DAILY 90 days #90 tabs 07/11/23 Allergies Allergy/AdvReac Type Severity Reaction Status Date / Time Penicillins [PCN] Allergy Mild RASH Verified 09/03/23 10:39 pravastatin AdvReac Intermediate body aches Verified 09/03/23 10:39 Review of Systems 2 Constitutional: Constitutional: Denies body ache(s), Denies chills, Denies frequent falls and Denies headache(s) Eyes: Eyes: Denies blurry vision ENT: Denies headache(s) and Denies sore throat Cardiovascular: Cardiovascular: Denies chest pain and Denies dyspnea Respiratory: Respiratory: Denies cough and Denies dyspnea Gastrointestinal: Gastrointestinal: Denies abdominal pain, Denies nausea and Denies vomiting Musculoskeletal: Musculoskeletal: Denies back pain, Reports arthralgias, Reports radiating pain into limb and Reports tingling Integumentary/Breasts: Skin/Breast: Denies erythema and Denies wounds Neurologic: Denies frequent falls, Denies headache(s) and Reports tingling PMFSH Past Medical History Medical History Wears hearing aid in both ears COVID-19 vaccine series completed Hx of cerebral infarction Dupuytren contracture Hypercholesteremia Hypertension Surgical History Hx of squamous cell carcinoma excision Hx of tonsillectomy Hx of hand surgery H/O colonoscopy Family History Family History Other Mental health disorder Substance abuse Social History Social History Housing: House Are you a primary client care coordinator to a significant other at home: No Do you presently have visiting nurse or other home services: No Patient Tobacco Use Status: Never used Tobacco e-Cigarette/Vaping Use: Never Used Second Hand Smoke Exposure: No Advance Directives: No Advance Directives Information Provided: Yes Do you have a plan to hurt others: No Plan service: No Current occupational status: retired Current occupational exposures/hazards: No Cognitive needs: No Hearing needs: Yes Vision needs: No Physical Exam 2 Vital Signs: Vital Signs: Last Vital Signs Temp 98 F 09/03/23 20:41 Pulse 92 09/03/23 20:41 Resp 16 09/03/23 20:41 BP 147/89 H 09/03/23 20:41 Pulse Ox 99 09/03/23 20:41 O2 Del Method Room Air 09/03/23 20:41 BMI result Body Mass Index 23.9 Const: General: healthy appearing, comfortable, no acute distress, alert and awake Nutritional Appearance: well nourished Orientation/consciousness: p atient oriented x3 HEENT: Head: Yes normocephalic and Yes atraumatic Eyes: Eyelids: Yes eyelids normal Conjunctivae: conjunctivae normal S clerae: sclerae normal Corneas: corneas normal Pupils: Equal, round and reactive pupils present EOM: EOMs intact bilaterally Neck: Neck: Yes full ROM Resp: Effort & Inspection: normal respiratory effort, able to speak in complete sentences and not labored Cardio: Rate: regular rate Rhythm: regular rhythm GI: Inspection: No distended Palpation (GI): Soft to palpation, not firm, nontender, no guarding and not rigid Skin: General skin exam: elasticity normal Neuro: General: patient oriented x3 Cranial nerves: Yes CN's II-XII intact bilaterally, Yes Equal, round and reactive pupils present and Yes Bilaterally intact EOM present Cognition (Neuro): normal cognition Course Course Course Narrative: RME performed by Emelia Franco PA-C. Patient is a 78 year old assigned female at presenting to the emergency department with right calf pain. Patient states she has been having right sided calf tenderness that is worse with exercise. Detailed physical exam and review of systems are deferred to the primary health organisation manager. Imaging and labs ordered. Patient placed back in the waiting room pending room availability and results. Medical Decision Making Medical Decision Making [facility] Narrative: 78-year-old female with past medical history as documented above presents for evaluation of multiple complaints. She complains of right leg pain, an ultrasound was ordered to rule out DVT. She has an NIH stroke score of 0, never had any facial droop, dysarthria or true objective weakness. Patient's sodium is slightly below normal at 132. Potassium, chloride and carbon dioxide within normal limits, she has an anion gap of 11. BUN, creatinine and GFR within normal limits. She is prediabetic her glucose is elevated to 135. She has a history of elevated bilirubin and her bilirubin today is 1.4. No electrolyte abnormalities. The patient's symptoms are consistent with claudication, she will follow-up with her PCP Differential Diagnosis Differential Diagnoses: The differential diagnosis associated with the presentation includes DVT Cellulitis B12 deficiency CVA/TIA Lab Data [facility] Lab Attestation statement: I reviewed the patient's lab results. See decision making above 09/03/23 10:56 09/03/23 10:56 Labs: Lab Results 09/03/23 Range/Units 10:56 WBC 6.8 (4.8-10.8) X10*3/uL RBC 4.15 L (4.20-5.50) X10*6/uL Hgb 13.3 (12.0-16.0) g/dl Hct 38.5 (37.0-47.0) % MCV 92.8 (80.0-98.0) fL MCH 32.0 (27.0-33.0) pg MCHC 34.5 (31.0-35.0) g/dl RDW 12.8 (11.0-16.0) % Plt Count 296 (160-400) X10*3/uL MPV 10.1 (9.4-12.3) fL Immature Gran % (Auto) 0.1 (0.0-0.4) % Neut % (Auto) 77.0 H (45-73) % Lymph % (Auto) 14.3 L (20-40) % Grant % (Auto) 6.4 (2-11) % Eos % (Auto) 1.2 (0-4) % Baso % (Auto) 1.0 (0-2) % Lymph # (Auto) 1.0 L (1.2-4.9) X10*3/uL Grant # (Auto) 0.4 (0.1-1.2) X10*3/uL Eos # (Auto) 0.1 (0.0-0.4) X10*3/uL Baso # (Auto) 0.1 (0.0-0.2) X10*3/uL Abs Immat Gran (auto) 0.01 (0.00-0.03) X10*3/uL Absolute Neuts (auto) 5.3 (2.0-8.3) x10*3/uL Absolute Nucleated RBC 0.000 (0.0-0.012) X10*3/uL Nucleated RBC % (auto) 0.0 (0.0-0.2) /100WBC PT 12.0 (11.1-13.3) SEC INR 1.0 (0.9-1.1) Sodium 132 L (135-145) mmol/L Potassium 4.0 (3.3-5.1) mmol/L Chloride 102 (96-108) mmol/L Carbon Dioxide 23 (22-29) mmol/L Anion Gap 11 L (12-20) BUN 11 (9-16) mg/dL Creatinine 0.69 (0.5-1.4) mg/dL Estim Creat Clear Calc 52.4 Estimated GFR > 60 Random Glucose 135 H (60-115) mg/dL Calcium 9.5 (8.4-10.2) mg/dL Total Bilirubin 1.4 H (0.0-1.0) mg/dL AST 21 (5-31) U/L ALT 20 (0-31) U/L Alkaline Phosphatase 91 (39-117) U/L Troponin I High Sens 4.7 (<3.5-17.0) ng/L Total Protein 7.1 (6.5-8.0) g/dL Albumin 4.3 (3.5-5.0) g/dL Discharge Plan Discharge Clinical Impression: Acute pain of right lower extremity Patient Disposition: Home, Self-Care Instructions: Leg Cramps (ED) Additional Instructions: Your workup in the ER today was reassuring. Your blood work did not show any concerning abnormalities. Your ultrasound did not show any blood clot Your symptoms are not consistent with a stroke Symptoms Prescriptions: No Action amlodipine 5 mg tablet 5 mg PO DAILY Qty: 90 3RF atorvastatin 40 mg tablet 40 mg PO DAILY 90 Days Qty: 90 3RF aspirin 325 mg Tablet 325 mg PO DAILY terbinafine HCl [Antifungal (terbinafine)] 1 % cream 1 appl topical BID 42 Days Qty: 30 1RF cholecalciferol (vitamin D3) 10 mcg (400 unit) capsule 10 mcg PO DAILY losartan 100 mg tablet 100 mg PO DAILY 90 Days Qty: 90 3RF Glucosamine Relief 500 mg capsule 500 mg PO DAILY Interventions: ED Discharge Assessment Last Done: 09/03/23 20:41 Discharge Date/Time: 09/03/23 20:41 Print Language: Wallisian
[2023-09-03 20:41] VITALS: BP 147/89; PULSE 92; RESP 16; TEMP 36.6; O2SAT 99
== END 2023-09-03 20:41 | disposition home or self-care (01) ==
PROVIDERS: Emergency Provider Internal Medicine; PCP Family Medicine
DX: M79.604 Pain in right leg (principal); I10 Essential (primary) hypertension; Z86.73 Personal history of transient ischemic attack (TIA), and cerebral infarction without residual deficits; Z79.82 Long term (current) use of aspirin
CPT/HCPCS: 36415; 80053; 84484; 85025; 85610; 93005; 93971; 99284

== ENCOUNTER → 2023-09-03 10:43 | Outpatient (BNV) | payer MEDICARE, OTHER, SELFPAY | PROVIDERS: PCP Family Medicine; Visit Provider Internal Medicine | DX: R00.0 Tachycardia, unspecified (principal) | CPT/HCPCS: 93010 ==

== ENCOUNTER 2023-11-20 09:49 | Outpatient (REF) | payer SELFPAY | END 2023-11-20 09:50 | disposition home or self-care (01) | LOC: HO.HAP 09:49 | PROVIDERS: Visit Provider Family Medicine | DX: Z46.1 Encounter for fitting and adjustment of hearing aid (principal); H90.3 Sensorineural hearing loss, bilateral | CPT/HCPCS: 92593 ==

== ENCOUNTER 2024-01-15 08:24 | Outpatient (AMB) | payer MEDICARE, OTHER, SELFPAY ==
--- NOTE | 2024-01-15 08:41 | A.OFFPC_ITS ---
Vital Signs 01/15/24 08:43 Height 5 ft Weight 123 lb BMI 24.0 BP 143/64 H Blood Pressure Location Lt brachial Position Sitting Respiration 16 Pulse 102 H Pulse Source Pulse Oximeter Temp 98.2 F Temp Source Temporal Artery Scan Pulse Oximetry (%) 100 Oxygen Delivery Method Room Air Intake Visit Reasons: F/U CHRONIC CONDITIONS Intake Note: f/u chronic conditions Allergies Penicillins [PCN] Allergy (Mild, Verified 01/15/24 08:42) RASH pravastatin Adverse Reaction (Intermediate, Verified 01/15/24 08:42) body aches Medication List - Last Reconciled 01/15/24 by Scooby Shafer MD amlodipine 5 mg PO DAILY aspirin 325 mg PO DAILY atorvastatin 40 mg PO DAILY 3 months cholecalciferol (vitamin D3) 10 mcg PO DAILY losartan 100 mg PO DAILY 90 days Tobacco use date assessed: 07/26/23 Dental Screening Dental Screen Date: 07/11/23 HPI F/U CHRONIC CONDITIONS HPI Details 78 y/o female presents to f/u chronic co nditions. Prior A1c 5.7%, A1c today 01/15/24 5.6%. Bone density test 08/21/23 shows osteopenia. Blood pressure today 143/64, 102p. She is on amlodipine 5mg, losartan 100mg daily. Has complaints of hip pain today. [facility] Medical History Wears hearing aid in both ears COVID-19 vaccine series completed Hx of cerebral infarction Dupuytren contracture Hypercholesteremia Hypertension Surgical History Hx of squamous cell carcinoma excision Hx of tonsillectomy Hx of hand surgery H/O colonoscopy Family History Other Mental health disorder Substance abuse Social History Housing: House Are you a primary point of care specialist to a significant other at home: No Do you presently have visiting nurse or other home services: No Patient Tobacco Use Status: Never used Tobacco e-Cigarette/Vaping Use: Never Used Second Hand Smoke Exposure: No service: No Current occupational status: retired Current occupational exposures/hazards: No Cognitive needs: No Hearing needs: Yes Vision needs: No Questionnaire PHQ-9 Over the last 2 weeks, how often have you been bothered by any of the following problems? 1. Little interest or pleasure in doing things: not at all 2. Feeling down, depressed, or hopeless: not at all 3. Trouble falling or staying asleep, or sleeping too much: more than half the days 5. Poor appetite or overeating: not at all 6. Feeling bad about yourself - or that you are a failure or have let yourself or your family down: not at all 7. Trouble concentrating on things, such as reading the newspaper or watching television: not at all 8. Moving or speaking so slowly that other people could have noticed. Or the opposite - being so fidgety or restless that you have been moving around a lot more than usual: not at all 9. Thoughts that you would be better off or of hurting yourself in some way: not at all Source: Developed by Drs. Ricky Lafleur, Dara Krueger, Jordan Ly and colleagues, with an educational stacey from [employer]. Thrive Questionnaire Date Thrive assessed: 07/11/23 I am a: Patient What is your living situation today?: I have a steady place to live Within the past 12 months, did the food you bought not last and you didn't have the money to get more?: Never true Within the past 12 months, did you worry whether your food would run out before you got money to buy more?: Never true Do you have trouble paying for medicines?: No Do you have trouble getting transportation to medical appointments?: No Do you have trouble paying your heating and electricity bill?: No Do you have trouble taking care of your child, family member or friend?: No Do you have trouble with day-to-day activities such as bathing, preparing meals, shopping, managing finances, etc.?: No Are you currently unemployed and looking for a job?: No Are you interested in more education?: No Please select the resources that you would like help with: None Currently or been in a relationship where the following occur: No concerns reported THRIVE Score: 0 AUDIT C Alcohol Use Questionnaire (AUDIT-C) 1. How often do you have a drink containing alcohol?: Never Total Score: 0 ALLEY-7 AMB Questionnaire ALLEY-7 Date ALLEY - 7 assessed: 07/11/23 Feeling nervous, anxious, or on edge: 0 = Not at all Not being able to stop or control worryin = Not at all Worrying too much about different things: 1 = Several days Trouble relaxin = Not at all Being so restless that it is hard to sit still: 0 = Not at all Becoming easily annoyed or irritable: 0 = Not at all Feeling afraid as if something awful might happen: 1 = Several days Total ALLEY-7 score (0-4 normal; 5-9 mild; 10-14 moderate; 15-21 severe): 2 Source: Developed by Drs. Ricky Lafleur, Dara Krueger, Jordan Ly and colleagues, with an educational stacey from [employer]. Review of Systems Const Denies chills, Denies fatigue, Denies fever(s), Denies headache(s) and Denies weakness ENT Denies dizziness and Denies headache(s) Card Denies dyspnea Resp Denies cough, Denies dyspnea, Denies wheezing and Denies other (shortness of breath) Musc Denies numbness and Denies tingling Neuro Denies dizziness, Denies headache(s), Denies numbness, Denies tingling and Denies weakness Psych Denies anxiety and Denies depression Endo Denies fatigue Aller/Immun Denies wheezing Physical exam (Primary Care) Vital Signs: Last Vital Signs Temp 98.2 F 01/15/24 08:43 Pulse 102 H 01/15/24 08:43 Resp 16 01/15/24 08:43 BP 143/64 H 01/15/24 08:43 Pulse Ox 100 01/15/24 08:43 Oxygen Delivery Method Room Air 01/15/24 08:43 BMI result Body Mass Index 24.0 Tobacco/Smoking Status: Tobacco use Status Tobacco use date assessed 07/26/23 01/15/24 08:45 Patient Tobacco Use Status Never used Tobacco 01/15/24 08:45 e-Cigarette/Vaping Use Never Used 01/15/24 08:45 Thrive Assessment: Date of Thrive Assessment Date Thrive assessed 07/11/23 01/15/24 08:45 Currently or been in a relationship where the following occur: No concerns reported Const General: well developed; No acute distress Nutritional Appearance: well nourished Orientation/consciousness: patient oriented x3 HENMT Head: Yes normocephalic and Yes atraumatic Eyes General: appearance normal, both eyes and all related structures Pupils: Equal, round and reactive pupils present EOM: EOMs intact bilaterally Resp Effort & Inspection: normal respiratory effort Auscultation: clear to auscultation bilaterally Cardio Rate: regular rate Rhythm: regular rhythm Heart sounds: S1 normal heart sound present, S2 normal heart sound present, no gallops, no murmurs and no rubs Neuro General: patient oriented x3 and gait normal Cranial nerves: Yes Equal, round and reactive pupils present Psych Affect: normal affect Coding Level of Care Code Est Pt Level 4 (28134) Diagnoses Pre-diabetes R73.03 Osteopenia M85.80 Hypertension I10 Hip pain M25.559 Assessment & Plan Assessment & Plan (1) Pre-diabetes: Code(s): R73.03 - Prediabetes Category: Medical Plan: A1c?improved?from?5.7%?to?5.6% Continue?working?at?diet?low?in?sugars?and?starches (2) Osteopenia: Code(s): M85.80 - Other specified disorders of bone density and structure, unspecified site Category: Medical Plan: Bone?density?test?shows?osteopenia She?is?already?getting?good?sources?of?calcium?and?vitamin-D Continue?working?at?weight-bearing?exercise (3) Hypertension: Code(s): I10 - Essential (primary) hypertension Category: Medical Plan: Blood?pressure?is?too?high.??Goal?is?less?than?140/90 Increased?amlodipine?and?continued?losartan?as?prescribed (4) Hip pain: Code(s): M25.559 - Pain in unspecified hip Category: Medical Plan: Mild?hip?joint?pain?at?anterior?hips?and?groin?with?increased?standing?walking. Decrease?overuse Ice/heat I?let?her?know?that?physical?therapy?could?be?helpful?if?she?needs?additional?he lp. Orders: Orders Vitamin D 25-OH Total Today E55.9 - Vitamin D deficiency, unspecified Comprehensive [place]. Panel Fast Today Z00.00 - Encounter for general adult medical examination without abnormal findings Microalbumin, Random (w Creat) Today I10 - Essential (primary) hypertension Complete Blood Count Auto Diff Today Z00.00 - Encounter for general adult medical examination without abnormal findings Lipid Panel Today Z00.00 - Encounter for general adult medical examination without abnormal findings TSH reflex Free T4 Today Z00.00 - Encounter for general adult medical examination without abnormal findings UA and rflx microscopic Today Z00.00 - Encounter for general adult medical examination without abnormal findings Medications: Changed From amlodipine 5 mg PO DAILY 90 tabs 3RF To amlodipine 10 mg PO DAILY 90 days 90 tabs 3RF
[2024-01-15 08:43] VITALS: BP 143/64; PULSE 102; RESP 16; TEMP 36.8; O2SAT 100; BMI 24.0
== END 2024-01-15 09:30 | disposition home or self-care (01) ==
PROVIDERS: PCP Family Medicine; Visit Provider Family Medicine
DX: R73.03 Prediabetes (principal)

== ENCOUNTER → 2024-01-15 08:24 | Outpatient (BNVA) | payer MEDICARE, OTHER, SELFPAY | PROVIDERS: PCP Family Medicine; Visit Provider Family Medicine | DX: R73.03 Prediabetes (principal); M85.80 Other specified disorders of bone density and structure, unspecified site; I10 Essential (primary) hypertension; M25.559 Pain in unspecified hip; Z79.899 Other long term (current) drug therapy | CPT/HCPCS: 83036; 99212 ==

== ENCOUNTER → 2024-01-29 08:52 | Outpatient (BNVA) | payer MEDICARE, OTHER, SELFPAY | PROVIDERS: PCP Family Medicine; Visit Provider Family Medicine ==

== ENCOUNTER 2024-02-01 08:30 | Outpatient (AMB) | payer MEDICARE, OTHER, SELFPAY ==
--- NOTE | 2024-02-01 08:42 | MHC.PC.OV ---
Vital Signs 02/01/24 08:43 Height 5 ft Weight 122 lb 8 oz BMI 23.9 BP 126/60 Blood Pressure Location Rt femoral Position Sitting Respiration 14 Pulse 93 Pulse Source Pulse Oximeter Temp 97.8 F Temp Source Oral Pulse Oximetry (%) 99 Oxygen Delivery Method Room Air Intake Visit Reasons: Med review Allergies Penicillins [PCN] Allergy (Mild, Verified 01/15/24 08:42) RASH pravastatin Adverse Reaction (Intermediate, Verified 01/15/24 08:42) body aches Tobacco use date assessed: 07/26/23 Dental Screening Dental Screen Date: 07/11/23 HPI Med review HPI Details Patient?returns?to?follow-up?hypertension. She?was?taking?losartan?100?mg?daily?and?amlodipine?5?mg?daily?but?her?blood?pressures?were?too?high. Increased?amlodipine?to?10?mg?daily?at?last?visit. Blood?pressure?today?126/60?however?patient?notes?flushing?and?says?she?feels?feverish?from?this?medication?each?day. No?dizziness?or?weakness. [facility] Medical History Wears hearing aid in both ears COVID-19 vaccine series completed Hx of cerebral infarction Dupuytren contracture Hypercholesteremia Hypertension Surgical History Hx of squamous cell carcinoma excision Hx of tonsillectomy Hx of hand surgery H/O colonoscopy Family History Other Mental health disorder Substance abuse Social History Housing: House Are you a primary health care assistant to a significant other at home: No Do you presently have visiting nurse or other home services: No Patient Tobacco Use Status: Never used Tobacco e-Cigarette/Vaping Use: Never Used Second Hand Smoke Exposure: No service: No Current occupational status: retired Current occupational exposures/hazards: No Cognitive needs: No Hearing needs: Yes Vision needs: No Questionnaire PHQ-9 Over the last 2 weeks, how often have you been bothered by any of the following problems? 4. Feeling tired or having little energy: more than half the days Source: Developed by Drs. Ricky Lafleur, Dara Krueger, Jordan Ly and colleagues, with an educational stacey from [employer]. Thrive Questionnaire Date Thrive assessed: 01/15/24 I am a: Patient What is your living situation today?: I have a steady place to live Within the past 12 months, did the food you bought not last and you didn't have the money to get more?: Never true Within the past 12 months, did you worry whether your food would run out before you got money to buy more?: Never true Do you have trouble paying for medicines?: No Do you have trouble getting transportation to medical appointments?: No Do you have trouble paying your heating and electricity bill?: No Do you have trouble taking care of your child, family member or friend?: No Do you have trouble with day-to-day activities such as bathing, preparing meals, shopping, managing finances, etc.?: No Are you currently unemployed and looking for a job?: No Are you interested in more education?: No Please select the resources that you would like help with: None Currently or been in a relationship where the following occur: No concerns reported THRIVE Score: 0 ALLEY-7 AMB Questionnaire ALLEY-7 Date ALLEY - 7 assessed: 07/11/23 Source: Developed by Drs. Ricky Lafleur, Dara Krueger, Jordan Ly and colleagues, with an educational stacey from [employer]. Review of Systems Const Details: Flushing w/ amlodipine 10mg Denies chills, Denies fatigue, Denies fever(s), Denies headache(s) and Denies weakness ENT Denies dizziness and Denies headache(s) Card Denies chest pain, Denies lightheadedness, Denies dyspnea and Denies other (Palpitations) Resp Denies cough, Denies dyspnea, Denies wheezing and Denies other ( shortness of breath) Musc Denies numbness and Denies tingling Neuro Denies dizziness, Denies headache(s), Denies numbness, Denies tingling, Denies paresthesias and Denies weakness Psych Denies anxiety and Denies depression Endo Denies fatigue Aller/Immun Denies wheezing Physical exam (Primary Care) Vital Signs: Last Vital Signs Temp 97.8 F 02/01/24 08:43 Pulse 93 02/01/24 08:43 Resp 14 02/01/24 08:43 BP 126/60 02/01/24 08:43 Pulse Ox 99 02/01/24 08:43 Oxygen Delivery Method Room Air 02/01/24 08:43 BMI result Body Mass Index 23.9 Tobacco/Smoking Status: Tobacco use Status Tobacco use date assessed 07/26/23 02/01/24 08:45 Patient Tobacco Use Status Never used Tobacco 02/01/24 08:45 e-Cigarette/Vaping Use Never Used 02/01/24 08:45 Thrive Assessment: Date of Thrive Assessment Date Thrive assessed 01/15/24 02/01/24 08:45 Currently or been in a relationship where the following occur: No concerns reported Const General: no acute distress and well developed Nutritional Appearance: well nourished Orientation/consciousness: patient oriented x3 [facility]: Yes normocephalic and Yes atraumatic Eyes General: appearance normal, both eyes and all related structures Pupils: Equal, round and reactive pupils present EOM: EOMs intact bilaterally Resp Effort & Inspection: normal respiratory effort Auscultation: clear to auscultation bilaterally Cardio Rate: regular rate Rhythm: regular rhythm Heart sounds: S1 normal heart sound present, S2 normal heart sound present, no gallops, no murmurs and no rubs Neuro General: patient oriented x3 and gait normal Cranial nerves: Yes Equal, round and reactive pupils present Psych Affect: normal affect Coding Level of Care Code Est Pt Level 3 (73581) Diagnoses Hypertension I10 Assessment & Plan Assessment & Plan (1) Hypertension: Code(s): I10 - Essential (primary) hypertension Category: Medical Plan: Blood?pressure?is?well?controlled?today.??Goal?is?less?than?140/90 However,?patient?is?noticing?flushing?after?increasing?amlodipine?from?5?mg?daily?to?10?mg?daily. Will?have?her?trial?taking?5?mg?b.i.d.?of?amlodipine?and?continuing?her?losartan?100?mg?daily?as?prescribed Will?follow-up?in?a?month.??If?blood?pressure?is?not?well?controlled?or?if?she?continues?to?have?flushing,?will?adjust?her?blood?pressure?medication?regimen. Medications: Changed From amlodipine 10 mg PO DAILY 90 days 90 tabs 3RF To amlodipine 5 mg (1/2 x 10 mg) PO BID 90 days 90 tabs 3RF
[2024-02-01 08:43] VITALS: BP 126/60; PULSE 93; RESP 14; TEMP 36.6; O2SAT 99; BMI 23.9
== END 2024-02-01 08:58 | disposition home or self-care (01) ==
LOC: HO.HMCFM 08:31
PROVIDERS: PCP Family Medicine; Visit Provider Family Medicine
DX: I10 Essential (primary) hypertension (principal)

== ENCOUNTER → 2024-02-01 08:30 | Outpatient (BNVA) | payer MEDICARE, OTHER, SELFPAY | PROVIDERS: PCP Family Medicine; Visit Provider Family Medicine | DX: I10 Essential (primary) hypertension (principal) | CPT/HCPCS: 99212 ==

== ENCOUNTER 2024-02-25 11:05 | Outpatient (REF) | payer SELFPAY | END 2024-02-25 11:06 | disposition home or self-care (01) | LOC: HO.HAP 11:05 | PROVIDERS: Visit Provider Family Medicine | DX: Z46.1 Encounter for fitting and adjustment of hearing aid (principal); H90.3 Sensorineural hearing loss, bilateral | CPT/HCPCS: 92593 ==

== ENCOUNTER 2024-03-04 10:17 | Outpatient (AMB) | payer MEDICARE, OTHER, SELFPAY ==
--- NOTE | 2024-03-04 10:45 | MHC.PC.OV ---
Vital Signs 03/04/24 10:48 03/04/24 11:06 Height 5 ft Weight 123 lb 6 oz BMI 24.1 BP 130/60 120/60 Blood Pressure Location Rt brachial Rt brachial Position Sitting Sitting Respiration 16 Pulse 92 Pulse Source Pulse Oximeter Temp 97.7 F Temp Source Oral Pulse Oximetry (%) 99 Oxygen Delivery Method Room Air Intake Visit Reasons: f/u htn Intake Note: f/u htn Allergies Penicillins [PCN] Allergy (Mild, Verified 03/04/24 10:46) RASH pravastatin Adverse Reaction (Intermediate, Verified 03/04/24 10:46) body aches Medication List - Last Reconciled 03/04/24 by Scooby Shafer MD amlodipine 5 mg (1/2 x 10 mg) PO BID 90 days aspirin 325 mg PO DAILY atorvastatin 40 mg PO DAILY 3 months cholecalciferol (vitamin D3) 10 mcg PO DAILY losartan 100 mg PO DAILY 90 days Tobacco use date assessed: 07/26/23 Dental Screening Dental Screen Date: 07/11/23 HPI f/u htn HPI Details 78 y/o female presents to f/u hypertension. Had noticed flushing after increasing amlodipine from 5mg to 10mg. Have her trial taking 5mg b.i.d. of amlodipine and continue losartan 100mg as prescribed. She notes flushing has improved. [facility]PLACED BY [facility] Medical History Wears hearing aid in both ears COVID-19 vaccine series completed Hx of cerebral infarction Dupuytren contracture Hypercholesteremia Hypertension Surgical History Hx of squamous cell carcinoma excision Hx of tonsillectomy Hx of hand surgery H/O colonoscopy Family History Other Mental health disorder Substance abuse Social History Housing: House Are you a primary pet care attendant to a significant other at home: No Do you presently have visiting nurse or other home services: No Patient Tobacco Use Status: Never used Tobacco e-Cigarette/Vaping Use: Never Used Second Hand Smoke Exposure: No service: No Current occupational status: retired Current occupational exposures/hazards: No Cognitive needs: No Hearing needs: Yes Vision needs: No Questionnaire Thrive Questionnaire Date Thrive assessed: 01/15/24 I am a: Patient What is your living situation today?: I have a steady place to live Within the past 12 months, did the food you bought not last and you didn't have the money to get more?: Never true Within the past 12 months, did you worry whether your food would run out before you got money to buy more?: Never true Do you have trouble paying for medicines?: No Do you have trouble getting transportation to medical appointments?: No Do you have trouble paying your heating and electricity bill?: No Do you have trouble taking care of your child, family member or friend?: No Do you have trouble with day-to-day activities such as bathing, preparing meals, shopping, managing finances, etc.?: No Are you currently unemployed and looking for a job?: No Are you interested in more education?: No Please select the resources that you would like help with: None Currently or been in a relationship where the following occur: No concerns reported THRIVE Score: 0 ALLEY-7 AMB Questionnaire ALLEY-7 Date ALLEY - 7 assessed: 07/11/23 Source: Developed by Drs. Ricky Lafleur, Dara Krueger, Jordan Ly and colleagues, with an educational stacey from [employer]. Review of Systems Const Denies chills, Denies fatigue, Denies fever(s), Denies headache(s) and Denies weakness ENT Denies dizziness and Denies headache(s) Card Denies dyspnea Resp Denies cough, Denies dyspnea, Denies wheezing and Denies other (shortness of breath) Musc Denies numbness and Denies tingling Neuro Denies dizziness, Denies headache(s), Denies numbness, Denies tingling and Denies weakness Psych Denies anxiety and Denies depression Endo Denies fatigue Aller/Immun Denies wheezing Physical exam (Primary Care) Vital Signs: Last Vital Signs Temp 97.7 F 03/04/24 10:48 Pulse 92 03/04/24 10:48 Resp 16 03/04/24 10:48 BP 120/60 03/04/24 11:06 Pulse Ox 99 03/04/24 10:48 Oxygen Delivery Method Room Air 03/04/24 10:48 BMI result Body Mass Index 24.1 Tobacco/Smoking Status: Tobacco use Status Tobacco use date assessed 07/26/23 03/04/24 10:51 Patient Tobacco Use Status Never used Tobacco 03/04/24 10:51 e-Cigarette/Vaping Use Never Used 03/04/24 10:51 Thrive Assessment: Date of Thrive Assessment Date Thrive assessed 01/15/24 03/04/24 10:51 Currently or been in a relationship where the following occur: No concerns reported Const General: well developed; No acute distress Nutritional Appearance: well nourished Orientation/consciousness: patient oriented x3 HENMT Head: Yes normocephalic and Yes atraumatic Eyes General: appearance normal, both eyes and all related structures Pupils: Equal, round and reactive pupils present EOM: EOMs intact bilaterally Resp Effort & Inspection: normal respiratory effort Neuro General: patient oriented x3 and gait normal Cranial nerves: Yes Equal, round and reactive pupils present Psych Affect: normal affect Coding Level of Care Code Est Pt Level 3 (38839) Diagnoses Hypertension I10 Assessment & Plan Assessment & Plan (1) Hypertension: Code(s): I10 - Essential (primary) hypertension Category: Medical Plan: Blood?pressure?is?controlled.??Goal?is?less?than?140/90 Continue?amlodipine?5?mg?b.i.d.?and?losartan?as?prescribed. She?had?had?complaints?of?flushing?with?amlodipine?10?mg?daily?so?we?divided?the?dose?and?this?has?improved/resolved?the?problem. No?further?changes?made?today Medications: Changed From amlodipine 5 mg (1/2 x 10 mg) PO BID 90 days 90 tabs 3RF To amlodipine 5 mg PO BID 90 days 180 tabs 3RF
[2024-03-04 10:48] VITALS: BP 130/60; PULSE 92; RESP 16; TEMP 36.5; O2SAT 99; BMI 24.1
[2024-03-04 11:06] VITALS: BP 120/60
== END 2024-03-04 17:05 ==
PROVIDERS: PCP Family Medicine; Visit Provider Family Medicine
DX: I10 Essential (primary) hypertension (principal)

== ENCOUNTER → 2024-03-04 10:17 | Outpatient (BNVA) | payer MEDICARE, OTHER, SELFPAY | PROVIDERS: PCP Family Medicine; Visit Provider Family Medicine | DX: I10 Essential (primary) hypertension (principal) | CPT/HCPCS: 99212 ==

== ENCOUNTER 2024-03-27 14:24 | Outpatient (REF) | payer SELFPAY | END 2024-03-27 14:25 | disposition home or self-care (01) | LOC: HO.HAP 14:24 | PROVIDERS: Visit Provider Family Medicine | DX: Z13.89 Encounter for screening for other disorder (principal) ==

== ENCOUNTER 2024-07-25 08:19 | Outpatient (REF) | payer MEDICARE, OTHER, SELFPAY ==
[2024-07-25 11:06] LABS: MANUAL DIFF FLAG NO
[2024-07-25 11:18] LABS: Basophils Absolute Auto 0.1 X10*3/uL (0.0-0.2); Basophils Percent Auto 1.3 % (0-2); Eosinophils Absolute Auto 0.3 X10*3/uL (0.0-0.4); Eosinophils Percent Auto 4.4 % (0-4); Hematocrit 39.2 % (37.0-47.0); Hemoglobin 13.2 g/dl (12.0-16.0); Imm Gran Abs Auto 0.02 X10*3/uL (0.00-0.03); Imm Gran Pct Auto 0.3 % (0.0-0.4); Lymphocytes Absolute Auto 1.4 X10*3/uL (1.2-4.9); Lymphocytes Percent Auto 23.1 % (20-40); Mean Corpuscular HGB Conc 33.7 g/dl (31.0-35.0); Mean Corpuscular Hemoglobin 31.6 pg (27.0-33.0); Mean Corpuscular Volume 93.8 fL (80.0-98.0); Monocytes Absolute Auto 0.5 X10*3/uL (0.1-1.2); Monocytes Percent Auto 8.5 % (2-11); Neutrophils Absolute Auto 3.8 x10*3/uL (2.0-8.3); Neutrophils Percent Auto 62.4 % (45-73); Platelet Count 313 X10*3/uL (160-400); Red Blood Count 4.18 X10*6/uL (4.20-5.50); Red Cell Distribution Width 13.1 % (11.0-16.0); White Blood Count 6.1 X10*3/uL (4.8-10.8)
[2024-07-25 11:45] LABS: Alanine Aminotransferase 31 U/L (0-31); Albumin Level 4.4 g/dL (3.5-5.0); Alkaline Phosphatase 84 U/L (39-117); Anion Gap 15 (12-20); Aspartate Amino Transferase 35 U/L (5-31); Bilirubin Total 1.8 mg/dL (0.0-1.0); Blood Urea Nitrogen 19 mg/dL (9-16); Calcium 9.6 mg/dL (8.4-10.2); Carbon Dioxide 26 mmol/L (22-29); Chloride 101 mmol/L (96-108); Cholesterol 138 mg/dL (<200); Estimated Glomerular Filt Rate > 60; Glucose Fasting 107 mg/dL (60-99); HDL Cholesterol 67 mg/dL (>40); LDL Cholesterol Calculated 62 mg/dL (<100); Potassium 4.5 mmol/L (3.3-5.1); Sodium 137 mmol/L (135-145); Total Protein 7.4 g/dL (6.5-8.0); Triglycerides 46 mg/dL (<150)
[2024-07-25 11:46] LABS: Appearance Urine Clear; Color Urine Yellow; Glucose Urine UA Negative (Negative); Leukocyte Esterase Urine Negative (Negative); Nitrite Urine Negative (Negative); Specific Gravity - Urine 1.015 (1.005-1.025); Urine Blood Negative (Negative); Urine Ketones Negative (Negative); Urine Protein Negative (Neg-Trace)
[2024-07-25 12:10] LABS: TSH reflex Free T4 2.21 uIU/mL (0.32-4.0); Vitamin D 25-OH Total 44.8 ng/mL (>30)
[2024-07-25 12:16] LABS: Creatinine Urine 85.58 mg/dL; Microalbum/Creatinine Ratio Ur 12.8 ug/mg cr (<30)
== END 2024-07-25 08:20 | disposition home or self-care (01) ==
LOC: HO.WFDLDS 08:19
PROVIDERS: Visit Provider Family Medicine
DX: Z00.00 Encounter for general adult medical examination without abnormal findings (principal); I10 Essential (primary) hypertension; E55.9 Vitamin D deficiency, unspecified
CPT/HCPCS: 36415; 80053; 80061; 81003; 82043; 82306; 82570; 84443; 85025

== ENCOUNTER 2024-07-30 09:49 | Outpatient (AMB) | payer MEDICARE, OTHER, SELFPAY ==
--- NOTE | 2024-07-30 09:56 | A.OFFVIS_ITS ---
Intake Vital Signs 07/30/24 10:04 Height 5 ft Weight 121 lb BMI 23.6 BP 118/67 Blood Pressure Location Lt brachial Position Sitting Respiration 12 Pulse 99 Pulse Source Pulse Oximeter Temp 97.3 F Temp Source Oral Pulse Oximetry (%) 99 Oxygen Delivery Method Room Air Intake Visit Reasons: mawv Intake Note: AWV Car Washer Required: No Allergies Penicillins [PCN] Allergy (Mild, Verified 07/30/24 10:19) RASH pravastatin Adverse Reaction (Intermediate, Verified 07/30/24 10:19) body aches Medication List - Last Reconciled 07/30/24 by Lynnette Barbosa, BEAN SNAPPER- amlodipine 5 mg PO BID 90 days aspirin 325 mg PO DAILY atorvastatin 40 mg PO DAILY 3 months cholecalciferol (vitamin D3) 10 mcg PO DAILY losartan 100 mg PO DAILY 90 days Do you need a note to return to daycare/school/sports/work: No HPI HPI Comments History of Present Illness Details Here today for AWV. The Medicare Annual Wellness Visit (AWV) is a yearly appointment with a health professional to identify health risks and help reduce them and to create or update a personalized prevention plan. During a Medicare AWV, health professionals should also review any current opioid prescriptions, detect any cognitive impairment, and establish or update medical and family history. 78 y/o F with osteopenia, HTN, HLD, hx o f CVA (lacunar infarct 2009), skin ca (SCC), Prediabetes, SurgHx: hand, tonsils, SCC excision FHx: Socrates Sigala, age 53, . 2 sons. SocHx: Y Health Maintenance: See scanned preventative medicine assessment with personalized health plan and screening schedule. Colon: 2017 Mammo 07/2023 DEXA 07/2023 osteopenia PAP n/a Vaccines Tdap 2016, PPSV 23 2010, PCV 13 2015, AAA screen: n/a EKG: done today Labs 07/25/24: fasting glu 107, ^ total bili 1.8, AST 35, otherwise wnl [place] of Care: GI Tammy Derm once per year Optho last eye exam 07/29/2024 Visual Acuity: glasses Hearing Screening: hearing aides bilat ACP: has a HCP at home; Dietary/Nutrition/Exercise Edu provided: Y During the course of the visit the patient was educated and counseled about appropriate screening and preventative services. Patient instructions were provided to the patient in written or electronic format. I have reviewed and verified the above information. History of Present Illness - The patient is a 78-year-old female he r for sAWV and c/o insomnia . - Insomnia has been persistent for sever al years, with difficulties in both sleep initiation and maintenance. - Acknowledges the potential impact of recent grief from the loss of her daughter, 1 week ago. She also has to get up every few hours to urinate. - Trialed melatonin w/o effect - Gastrointestinal complaints include so me bloating and early satiety, started a few months ago . - There is no significant change in weig ht, though 2 lb has been lost since 02/2024. - Medical history is significant for pre diabetes Hypertension managed on current meds HLD stable on statin Bilat ears feel blocked, wonders if she has wax Family History - No family history of colon cancer. - No family history of pancreatic, ovari an, or uterine cancers. Social History - Lives independently and manages activi ties of daily living. - Recently experienced the loss of a grace ghter, impacting emotional well-being. - The patient is not sexually active. - Denies use of tobacco or alcohol. Health Maintenance - Up-to-date with vaccinations except fo r the second dose of the shingles vaccine, which was recommended. Review of Systems - General: Reports insomnia. - Gastrointestinal: Reports bloating; - Psychological: Reports recent bereavem ent due to daughter's ; Denies anxiety or depression beyond grief. - Genitourinary: Reports frequent urinat ion. - Musculoskeletal: Denies falling or fea r of falling. Physical Exam General: Well developed, well nourished, in no acute distress. Appears stated age. Head: Normocephalic, atraumatic. Eyes: Pupils are equal, round and reactive to light and accommodation. Conjunctivae are clear. Scleras nonicteric Ears: TMs clear AU, EACS WNL Lungs: Clear to auscultation bilaterally. No rales, rhonchi or wheeze noted. Good air flow in all nix. Heart: Regular rate and rhythm. No murmurs, click, rubs or gallops are noted. Abdomen: Bowel sounds present in all quadrants. The abdomen is soft, tender over epigastrum, with no masses or organomegaly noted. No hernias are noted. Neurologic: Gait and station normal. Cranial Nerves 2-12 intact. Motor strength grossly symmetrical and intact. No sensory loss. Balance normal. Skin: No rashes, ulcers, or lesions noted. Turgor is good. Skin color is good. Hair and nails are without abnormalities. Psych: Normal eye contact, affect and mood appropriate, and normal interactions. Patient is alert and appropriate to context. Results - Imaging: EKG indicated no significant changes compared to previous studies from 2023, maintaining a normal sinus rhythm. Discussion Notes I discussed with the patient the management of her insomnia, potentially amplified by the recent passing of her daughter. We explored the use of belén zapine as a safe option given her age, which may help improve sleep quality and contribute positively to mood stabilization. She was informed of the prescription's benefits and non-sedative nature, reassuring her of its safety for her age. For bloating issues, labs and a stool sample analysis were recommended to rule out H Pylori. The patient consented to follow-up and vaccinations necessary, including the shingles vaccine, and future blood work along with a stool sample analysis. Assessment and Plan 1. Insomnia We discussed mirtazapine as an appropriate treatment to aid sleep and mood sta bility, appreciating its suitability for her age group. The patient's acceptance of this trial reflects understanding and readiness to initiate treatment. 2. Pre-DM The current A1C value indicates stable disease control. Continued medication adherence and routine glucose monitoring are advised, with follow-up labs planned. 3. Hypertension & HLD Regular re-evaluation of cardiovascular risk remains prudent; current medication regimen appears effective. 4. Bloating, early satiety epigastric pa in. Concerning sx. Labs 07/25/24 show elevated bilirubin and AST. Labs today show mild elevation in amylase. Along w/ the sx and epigastric tenderness, recommendation to proceed with CT of the Abd to eval liver and pancreas. 5. Health Maintenance The patient is encouraged to complete the shingles vaccine series, complementing her continued proactive health measures. Patient Instructions - Start mirtazapine 30 minutes before be dtime as needed for sleep. - Continue current medications for blood pressure, and cholesterol. - Get recommended lab tests and return s tool sample as directed. - Schedule and receive the second dose o f your shingles vaccine at a pharmacy. - Monitor any changes in symptoms and re port them. - Schedule follow-up in 4 week to review abd imaging and effectiveness of sleep med. Recommend 6 mo routine fu with PCP for HTN and HLD Consent Patient was informed and verbally consented to the use of an ambient scribe for clinic note documentation during this visit. An additional 30 minutes was spent addressing the problem(s) noted at todays visit. This includes time spent before the visit reviewing the chart, time spent during the visit, and time spent after the visit on documentation reviewing laboratory results, diagnostic imaging, medications, performing a medically necessary evaluation, counseling on diagnoses, care coordination, ordering appropriate tests, ordering appropriate medications, review of tests performed by other providers, reporting test results with the patient, communication with other healthcare providers. PENDING SALE TO [facility] Medical History (Updated 07/31/24 @ 08:04 by LEI Mars) COVID-19 vaccine series completed Dupuytren contracture Hx of cerebral infarction Hypercholesteremia Hypertension Wears hearing aid in both ears Surgical History (Updated 07/30/24 @ 07:25 by LEI Mars) H/O colonoscopy (~2017) Hx of hand surgery Hx of squamous cell carcinoma excision Hx of tonsillectomy Family History Other Mental health disorder Substance abuse Social History Housing: House Are you a primary medicare nurse to a significant other at home: No Do you presently have visiting nurse or other home services: No Patient Tobacco Use Status: Never used Tobacco e-Cigarette/Vaping Use: Never Used Second Hand Smoke Exposure: No service: No Current occupational status: retired Current occupational exposures/hazards: No Cognitive needs: No Hearing needs: Yes Vision needs: No Questionnaire Medicare Wellness Checkup What [age] What gender do you identify with?: female During the past 4 weeks, how much have you been bothered by emotional problems such as feeling anxious, depressed, irritable, sad or downhearted, and blue?: slightly During the past 4 weeks, has your physical & emotional health limited your social activities with family, friends, neighbors, or groups?: slightly During the past 4 weeks, how much bodily pain have you generally had?: no pain During the past 4 weeks, was someone available to help you if you needed & wanted help?: yes, as much as I wanted During the past 4 weeks, what was the hardest physical activity you could do for at least 2 minutes?: heavy Can you get to places out of walking distance without help? (For eg., can you travel alone on buses, taxis or drive your car?): Yes Can you go shopping for groceries or clothes without someone's help?: Yes Can you prepare your own meals?: Yes Can you do your housework without help?: Yes Because of any health problems, do you need the help of another person with your personal care needs such as eating, bathing, dressing or getting around the house?: No Can you handle your own money without help?: Yes During the past 4 weeks, how would you rate your health in general?: very good During the past 4 weeks how have things been going for you?: pretty well Are you having difficulties driving your car?: no Do you always fasten your seat belt when you are in a car?: yes, usually During past 4 weeks, have you been bothered by the following: never: Falling or dizzy when standing up, Sexual problems?, Trouble eating well?, Problems using the telephone? and Tiredness or fatigue? and seldom: Teeth or denture problems? Have you fallen 2 or more times in the past year?: No Are you afraid of falling?: No Are you a smoker?: no During the past 4 weeks, how many drinks of wine, beer, or other alcoholic beverages did you have?: no alcohol at all Do you exercise for about 20 minutes 3 or more times a week?: yes, all the time Have you been given information to help with the following?: no: Hazards in your house that might hurt you? and no: Keeping track of your medications? How often do you have trouble taking medicines the way you have been told to take them?: I always take medicine as prescribed How confident are you that you can control & manage most of your health problems?: very confident What is your race?: White Activity of Daily Living Bathing - sponge bath, tub bath or shower: receives no assistance (gets in/out by self, if usual bathing means Dressing - getting clothes from closets & drawers, including inner/outer garments & fasteners.: gets clothes & gets completely dressed without help Toileting - going to the 'toilet room' for urine/bowel elimination & cleaning self/arranging clothes: goes to toilet room, cleans self, arranges clothes without help Transfer: moves in & out of bed and chair without help (may use support object) Continence: controls urination/bowel movements completely by self Feeding: feeds self without help Total Score: 0 Information obtained from: patient Using telephone: independent Traveling: independent Shopping: independent Preparing meals: independent Housework: independent Taking medicine: independent Managing money: independent PHQ-9 Over the last 2 weeks, how often have you been bothered by any of the following problems? 1. Little interest or pleasure in doing things: not at all 2. Feeling down, depressed, or hopeless: not at all 3. Trouble falling or staying asleep, or sleeping too much: not at all 4. Feeling tired or having little energy: not at all 5. Poor appetite or overeating: not at all 6. Feeling bad about yourself - or that you are a failure or have let yourself or your family down: not at all 7. Trouble concentrating on things, such as reading the newspaper or watching television: not at all 8. Moving or speaking so slowly that other people could have noticed. Or the opposite - being so fidgety or restless that you have been moving around a lot more than usual: not at all 9. Thoughts that you would be better off or of hurting yourself in some way: not at all Total score: 0 Depression Screening Interpretation: Negative Depression Screening Done: Yes 87261 - PHQ-9 Billing: Yes Source: Developed by Drs. Ricky Lafleur, Dara Krueger, Jordan Ly and colleagues, with an educational stacey from [employer]. Physical Exam Vital Signs: Last Vital Signs Temp 97.3 F 07/30/24 10:04 Pulse 99 07/30/24 10:04 Resp 12 07/30/24 10:04 BP 118/67 07/30/24 10:04 Pulse Ox 99 07/30/24 10:04 Oxygen Delivery Method Room Air 07/30/24 10:04 BMI result Body Mass Index 23.6 Office Procedures EKG 68134-Byrehkibljummwtah, Complete Vision Screening Right Eye: 20/30 Left Eye: 20/30 Bilateral: 20/30 Color: Pass Corrected: Pass (wearing glasses) 33765 - Vision Screening Results AMB Hemoglobin A1c AMB Hemoglobin A1c 5.7 % Last Edit by Esthela Aleman MA on 07/30/24 10:18 Results Reviewed Results Reviewed: Laboratory Last Values Hgb A1c (Clinic) 5.7 % (4.0-6.0) 07/30/24 10:12 RUN: 07/31/24 0758 PAGE 1 [facility] [address] [place] [address] Legal Adviser: Scooby Wisdom M.D. Specimen Inquiry Name: Dariana Kilgore Age/Sex: 78/F : 1945 Unit#: [id number] Attend Dr: Lynnette Barbosa Re07/30/24 Status: DEP [facility]: SPEC : [id number] MEGHNA: 07/30/24 STATUS: COMP REQ : [id number] RECD: 07/30/24-[address]: Lynnette Barbosa COMP: 07/30/24 ENTERED: 07/30/24-[address]: ORDERED: Yesika, Lip Test Result Flag Reference Yesika 115 H 28-100 U/L Lipase 28 8-78 U/L END OF REPORT Assessment & Plan Assessment & Plan (1) Encounter for subsequent annual wellness visit (AWV) in Medicare patient: Onset Date: ~07/2024 Code(s): Z00.00 - Encounter for general adult medical examination without abnormal findings (2) Abdominal bloating: Code(s): R14.0 - Abdominal distension (gaseous) (3) Insomnia: Code(s): G47.00 - Insomnia, unspecified Qualifiers: Insomnia type: other insomnia Qualified Code(s): G47.09 - Other insomnia (4) Elevated bilirubin: Code(s): R17 - Unspecified jaundice (5) Elevated pancreatic enzyme: Code(s): R74.8 - Abnormal levels of other serum enzymes (6) Hypercholesteremia: Code(s): E78.00 - Pure hypercholesterolemia, unspecified (7) Hypertension: Code(s): I10 - Essential (primary) hypertension Qualifiers: Hypertension type: primary hypertension Qualified Code(s): I10 - Essential (primary) hypertension (8) Immunization counseling: Code(s): Z71.85 - Encounter for immunization safety counseling (9) Osteopenia: Code(s): M85.80 - Other specified disorders of bone density and structure, unspecified site Qualifiers: Osteopenia location: multiple sites Qualified Code(s): M85.89 - Other specified disorders of bone density and structure, multiple sites (10) Pre-diabetes: Code(s): R73.03 - Prediabetes (11) Squamous cell skin cancer: Code(s): C44.92 - Squamous cell carcinoma of skin, unspecified (12) Hearing loss: Code(s): H91.90 - Unspecified hearing loss, unspecified ear Qualifiers: Hearing loss type: sensorineural Laterality: bilateral Qualified Code(s): H90.3 - Sensorineural hearing loss, bilateral Plan . Orders: Orders AMB Hemoglobin A1c 07/30/24 Z13.9 - Encounter for screening, unspecified Amylase 07/30/24 R14.0 - Abdominal distension (gaseous) Lipase 07/30/24 R14.0 - Abdominal distension (gaseous) H pylori Ag Stool 07/30/24 R14.0 - Abdominal distension (gaseous) Medications: New mirtazapine 7.5 mg PO BEDTIME 30 tabs 0RF Quality Reporting (2019) Adult ([facility] 138/2/) Smoking risk assessment performed?: Yes Patient Tobacco Use Status: Never used Tobacco Depression screening performed: Yes Screen Results: Yes Negative screen Systolic BP not done?: No Diastolic BP not done?: No BMI screening not done: No Sexual Activity Screening ([facility] 153) Sexually active?: No Immunizations ([facility] 147, 117) Annual Influenza Vaccine: Yes Measles Antibody Test: No Mumps Antibody Test: No Rubella Antibody Test: No Varicella Antibody Test: No Anti Hepatitis A IgG Antigen test: No Anti Hepatitis B Virus Surface Ab test: No Fall Risk Screening ([facility] 139) Last assessed Fall Risk: 07/30/24 Fall risk assessment: No Falls in past year Dementia Assessment ([facility] 149) Cognitive assessment recorded: Yes (/ on 6 CIT) Assessment of cognition with standardized tool: Yes Depression/Bipolar (159/160/161/177) PHQ-9: Total score: 0 Coding Level of Care Code Medicare Subsequent (G0439) Est Pt Level 4 (60723) Diagnoses Encounter for subsequent annual wellness visit (AWV) in Medicare patient Z00.00 Abdominal bloating R14.0 Other insomnia G47.09 Insomnia type: other insomnia Elevated bilirubin R17 Elevated pancreatic enzyme R74.8 Hypercholesteremia E78.00 Primary hypertension I10 Hypertension type: primary hypertension Immunization counseling Z71.85 Osteopenia of multiple sites M85.89 Osteopenia location: multiple sites Pre-diabetes R73.03 Squamous cell skin cancer C44.92 Sensorineural hearing loss (SNHL) of both ears H90.3 Hearing loss type: sensorineural Laterality: bilateral CPT Codes Advance Care Planning - Time spent: 1-15 minutes, not on file ([id number]) EKG - CPT: 00629-Xlynobgwrmogcqlbc, Complete ([id number]) Vision Screening - Vision Screenin - Vision Screening ([id number]) Additional Codes PHQ-9 - 63074 - PHQ-9 Billing: Yes ([id number]) Advance Care Planning Advance Care Planning discussion: Exists, not on file Date of discussion: 07/30/24 Who was present: self Forms completed: Health Care Proxy, MOLST and Living will Time spent: 1-15 minutes, not on file Actual minutes spent: 5
[2024-07-30 10:04] VITALS: BP 118/67; PULSE 99; RESP 12; TEMP 36.3; O2SAT 99; BMI 23.6
== END 2024-07-30 10:57 | disposition home or self-care (01) ==
LOC: HO.HMCFM 09:50
PROVIDERS: PCP Family Medicine; Visit Provider Nurse Practitioner Family
DX: Z13.9 Encounter for screening, unspecified (principal); Z01.00 Encounter for examination of eyes and vision without abnormal findings; R73.03 Prediabetes

== ENCOUNTER → 2024-07-30 09:49 | Outpatient (BNVA) | payer MEDICARE, OTHER, SELFPAY | PROVIDERS: PCP Family Medicine; Visit Provider Nurse Practitioner Family | DX: Z00.00 Encounter for general adult medical examination without abnormal findings (principal); R14.0 Abdominal distension (gaseous); G47.09 Other insomnia; R17 Unspecified jaundice; R74.8 Abnormal levels of other serum enzymes; E78.00 Pure hypercholesterolemia, unspecified; I10 Essential (primary) hypertension; M85.89 Other specified disorders of bone density and structure, multiple sites; R73.03 Prediabetes; C44.92 Squamous cell carcinoma of skin, unspecified; H90.3 Sensorineural hearing loss, bilateral; Z71.85 Encounter for immunization safety counseling | CPT/HCPCS: 36415; 82150; 83036; 83690; 93005; 96127; 99212 ==

== ENCOUNTER 2024-07-30 11:12 | Outpatient (REF) | payer MEDICARE, OTHER, SELFPAY ==
[2024-07-30 14:34] LABS: Amylase 115 U/L (28-100); Lipase 28 U/L (8-78)
== END 2024-07-30 11:13 | disposition home or self-care (01) ==
LOC: HO.WFDLDS 11:12
PROVIDERS: Visit Provider Nurse Practitioner Family
DX: Z13.89 Encounter for screening for other disorder (principal)
CPT/HCPCS: 36415; 82150; 83690

== ENCOUNTER 2024-07-31 14:08 | Outpatient (REF) | payer MEDICARE, OTHER, SELFPAY | END 2024-07-31 14:09 | disposition home or self-care (01) | LOC: HO.LNP 14:08 | PROVIDERS: Visit Provider Nurse Practitioner Family | DX: R14.0 Abdominal distension (gaseous) (principal) | CPT/HCPCS: 87338 ==

== ENCOUNTER 2024-08-21 08:05 | Outpatient (REF) | payer MEDICARE, OTHER, SELFPAY ==
--- NOTE | ~2024-08-21 | CT_ITS ---
EXAMINATION: CT ABDOMEN WITHOUT THEN WITH IV CONTRAST HISTORY: R14.0 - Abdominal distension (gaseous) COMPARISON: None. TECHNIQUE: CT scan of the abdomen was performed before and after the intravenous administration of 85 mL Omnipaque 350. Coronal and sagittal reformatted images were generated and reviewed. The patient received oral contrast material. This CT exam was performed with one or more of the following dose reduction techniques: automated exposure control, adjustment of the mA and/or kV according to patient size, use of iterative reconstruction technique. DLP: 286 mGy-cm ABDOMEN: LOWER CHEST: The visualized lung bases are clear. There is no pleural effusion. CARDIOVASCULATURE: The heart is normal in size. There is no pericardial effusion. LIVER: The liver is normal in size and contour. No liver mass is identified. The hepatic and portal veins are patent. GALLBLADDER / BILE DUCTS: The gallbladder is unremarkable. There is no intra or extrahepatic biliary ductal dilatation. SPLEEN: The spleen is normal in size. No focal splenic lesion is identified. PANCREAS: The pancreas is unremarkable in appearance. No enhancing mass or ductal dilatation is identified. ADRENAL GLANDS: Within normal limits. KIDNEYS/RETROPERITONEUM: No renal calculi are identified. There is no hydronephrosis. There is a subcentimeter probable cyst at the upper pole of the right kidney. LYMPH NODES: No abdominal or pelvic lymphadenopathy. VASCULATURE: The abdominal aorta demonstrates atherosclerotic calcification, but is normal in caliber. MESENTERY/PERITONEUM: No free fluid. No masses. There is no free intraperitoneal gas. STOMACH: The stomach is collapsed, limiting evaluation. SMALL BOWEL: The visualized small bowel is normal in caliber. COLON: The visualized portion of the colon is unremarkable. BONES / SOFT TISSUES: No suspicious bony or soft tissue abnormalities. CT/CT abdomen wo/w IV con IMPRESSION: Unremarkable unenhanced and contrast-enhanced CT of the abdomen. No evidence of a pancreatic mass. Electronically signed by: Ricky Staples MD 08/21/2024 10:54 AM EDT
[2024-08-21] MEDS: Barium Sulfate Oral (Berry) 450 ML ORAL.SUSP PO (10:43)
[2024-08-21] MEDS: iohexoL 350 MG/ML 100 ML INFUS..BTL IV (10:44)
== END 2024-08-21 08:06 | disposition home or self-care (01) ==
LOC: HO.CT 08:05
PROVIDERS: PCP Family Medicine; Visit Provider Nurse Practitioner Family
DX: R17 Unspecified jaundice (principal); R74.8 Abnormal levels of other serum enzymes; R14.0 Abdominal distension (gaseous)
CPT/HCPCS: 74170; Q9967

== ENCOUNTER → 2024-08-21 08:08 | Outpatient (BNV) | payer MEDICARE, OTHER, SELFPAY | PROVIDERS: PCP Family Medicine; Visit Provider Radiology Diagnostic Radiology | DX: R14.0 Abdominal distension (gaseous) (principal) | CPT/HCPCS: 74170 ==

== ENCOUNTER 2024-08-26 07:34 | Outpatient (REF) | payer MEDICARE, OTHER, SELFPAY | END 2024-08-26 07:35 | disposition home or self-care (01) | LOC: HO.MAMMO 07:34 | PROVIDERS: Visit Provider Family Medicine | DX: Z12.31 Encounter for screening mammogram for malignant neoplasm of breast (principal) | CPT/HCPCS: 77063; 77067 ==

== ENCOUNTER → 2024-08-26 08:00 | Outpatient (BNV) | payer MEDICARE, OTHER, SELFPAY | PROVIDERS: Visit Provider Internal Medicine | DX: Z12.31 Encounter for screening mammogram for malignant neoplasm of breast (principal) | CPT/HCPCS: 77063; 77067 ==

== ENCOUNTER 2024-08-28 08:51 | Outpatient (AMB) | payer MEDICARE, OTHER, SELFPAY ==
--- NOTE | 2024-08-28 09:11 | A.OFFPC_ITS ---
Vital Signs 08/28/24 09:17 Height 5 ft Weight 121 lb BMI 23.6 BP 122/70 Blood Pressure Location Lt brachial Position Sitting Respiration 12 Pulse 95 Pulse Source Pulse Oximeter Temp 97.4 F Temp Source Oral Pulse Oximetry (%) 99 Oxygen Delivery Method Room Air Intake Visit Reasons: 4 weeks fu of insomnia/Abd bloating Dr Goldsmith or me Intake Note: Follow up on insomnia and abd bloating Digital Asset Coordinator Required: No Allergies Penicillins [PCN] Allergy (Mild, Verified 08/28/24 09:36) RASH pravastatin Adverse Reaction (Intermediate, Verified 08/28/24 09:36) body aches Medication List - Last Reconciled 08/28/24 by Lynnette Barbosa, RN ICU- amlodipine 5 mg PO BID 90 days aspirin 325 mg PO DAILY atorvastatin 40 mg PO DAILY 3 months cholecalciferol (vitamin D3) 10 mcg PO DAILY losartan 100 mg PO DAILY 90 days mirtazapine 7.5 mg PO BEDTIME 30 days Tobacco use date assessed: 08/28/24 Fall risk assessment: No Falls in past year Last assessed Fall Risk: 08/28/24 Dental Screening Dental Screen Date: 08/28/24 Did you have a dental visit in the last 12 months?: Yes Did you have a dental problem in the last 6 months where you did not have access to dental care?: No Was dental information given to patient?: Patient has dentist HPI HPI Comments History of Present Illness Details 79 y/o F with osteopenia, HTN, HLD, hx o f CVA (lacunar infarct 2009), skin ca (SCC), Prediabetes, - The patient is a 79-year-old female pr esenting with follow-up for insomnia, bloating, early satiety, and unintended weight loss. - Insomnia for several months, Rx for mi rtazapine but chose not to take; would rather be tired than take medications. No wish to pursue further. - Frequent nighttime bloating. Taking Ga s X at bedtime with + relief - Reports early satiety affecting meal i ntake, symptoms present for several months. - Noted unintentional weight loss, curre nt weight stable. - Missing teeth possibly contributing to issues, impacting chewing. Review of Systems - Gastrointestinal: Reports bloating, ea rly satiety. Denies abdominal pain. - Sleep: Reports difficulty falling asle ep. - Weight: Reports unintended weight loss over the past few months. Review of Systems - General: Reports insomnia. - Gastrointestinal: Reports bloating; de nies pain - Psychological: Reports recent bereavem ent due to daughter's ; Denies anxiety or depression beyond grief. - Genitourinary: Reports frequent urinat ion. Physical Exam General: Well developed, well nourished, in no acute distress. Appears stated age. Head: Normocephalic, atraumatic. Eyes: Pupils are equal, round and reactive to light and accommodation. Conjunctivae are clear. Scleras nonicteric Abdomen: Bowel sounds present in all quadrants. The abdomen is soft, mildlly tender over epigastrum, with no masses or organomegaly noted. No hernias are noted. Neurologic: Gait and station normal. Cranial Nerves 2-12 intact. Motor strength grossly symmetrical and intact. No sensory loss. Balance normal. Skin: No rashes, ulcers, or lesions noted. Turgor is good. Skin color is good. Hair and nails are without abnormalities. Psych: Normal eye contact, affect and mood appropriate, and normal interactions. Patient is alert and appropriate to context. Results - Labs: - Amylase: 115 (elevated) - Lipase: 28 (normal) - Stool for H. pylori: Negative - Imaging: - Abdominal CT scan: Normal f indings Labs 07/25/24: fasting glu 107, ^ total bili 1.8, AST 35, otherwise wnl Discussion Notes I discussed with the patient that the primary concerns were the symptoms of insomnia, bloating, and early satiety, alongside unintentional weight loss. The previously elevated amylase and normal lipase suggest no acute pancreatitis, supported by the normal abdominal imaging noted. DC mirtazapine as she does not want to take. We discussed the potential for swallowing air to contribute to bloating. I advised the use of simethicone as needed for gas relief. Follow-up labs were planned to reassess amylase and bilirubin levels before the January appointment. The importance of notifying us if symptoms worsen, especially significant weight loss or progressive abdominal distension, was stressed. Assessment and Plan 1. Insomnia - Discontinue mirtazapine 2. Bloating and Early Satiety - Recommend simethicone for gas relief. - offered and declined GI referral - Educate on reducing air swallowing. 3. Unintended Weight Loss - Monitor for changes; stable weight david ssuring. 4. Follow-Up Labs - Re-evaluate amylase and bilirubin leve end of December. Patient Instructions - Stop taking mirtazapine. - Use simethicone as needed for bloating . - Chew slowly to avoid swallowing air. - Notify us if significant weight loss o r abdominal changes occur. RTO in Nov with PCP as scheduled with labs 1 week before Consent Patient was informed and verbally consented to the use of an ambient scribe for clinic note documentation during this visit. Total time spent caring for the patient today was 30 minutes. This includes time spent before the visit reviewing the chart, time spent during the visit, and time spent after the visit on documentation, reviewing laboratory results, diagnostic imaging, medications, performing a medically necessary evaluation, counseling on diagnoses, care coordination, ordering appropriate tests, ordering appropriate medications, review of tests performed by other providers, reporting test results with the patient, communication with other healthcare providers. [facility] Medical History (Updated 07/31/24 @ 08:04 by Lynnette Barbosa, RN [facility]) COVID-19 vaccine series completed Dupuytren contracture Hx of cerebral infarction Hypercholesteremia Hypertension Wears hearing aid in both ears Surgical History (Updated 07/30/24 @ 07:25 by HECTOR Mars-) H/O colonoscopy (~2016) Hx of hand surgery Hx of squamous cell carcinoma excision Hx of tonsillectomy Family History Other Mental health disorder Substance abuse Social History Housing: House Are you a primary sub acute care nurse to a significant other at home: No Do you presently have visiting nurse or other home services: No Patient Tobacco Use Status: Never used Tobacco e-Cigarette/Vaping Use: Never Used Second Hand Smoke Exposure: No service: No Current occupational status: retired Current occupational exposures/hazards: No Cognitive needs: No Hearing needs: Yes Vision needs: No Questionnaire PHQ-9 Over the last 2 weeks, how often have you been bothered by any of the following problems? 1. Little interest or pleasure in doing things: not at all 2. Feeling down, depressed, or hopeless: not at all 3. Trouble falling or staying asleep, or sleeping too much: more than half the days 4. Feeling tired or having little energy: more than half the days 5. Poor appetite or overeating: not at all 6. Feeling bad about yourself - or that you are a failure or have let yourself or your family down: not at all 7. Trouble concentrating on things, such as reading the newspaper or watching television: not at all 8. Moving or speaking so slowly that other people could have noticed. Or the opposite - being so fidgety or restless that you have been moving around a lot more than usual: not at all 9. Thoughts that you would be better off or of hurting yourself in some way: not at all Total score: 4 Depression Screening Interpretation: Negative Depression Screening Done: Yes 42664 - PHQ-9 Billing: Yes Source: Developed by Drs. Ricky Lafleur, Dara Krueger, Jordan Ly and colleagues, with an educational stacey from [employer]. Thrive Questionnaire Date Thrive assessed: 08/28/24 I am a: Patient What is your living situation today?: I have a steady place to live Within the past 12 months, did the food you bought not last and you didn't have the money to get more?: Never true Within the past 12 months, did you worry whether your food would run out before you got money to buy more?: Never true Do you have trouble paying for medicines?: No Do you have trouble getting transportation to medical appointments?: No Do you have trouble paying your heating and electricity bill?: No Do you have trouble taking care of your child, family member or friend?: No Do you have trouble with day-to-day activities such as bathing, preparing meals, shopping, managing finances, etc.?: No Are you currently unemployed and looking for a job?: No Are you interested in more education?: No Please select the resources that you would like help with: None Currently or been in a relationship where the following occur: No concerns reported THRIVE Score: 0 AUDIT C Alcohol Use Questionnaire (AUDIT-C) 1. How often do you have a drink containing alcohol?: Never Total Score: 0 ALLEY-7 AMB Questionnaire ALLEY-7 Date ALLEY - 7 assessed: 08/28/24 Feeling nervous, anxious, or on edge: 0 = Not at all Not being able to stop or control worryin = Not at all Worrying too much about different things: 1 = Several days Trouble relaxin = Not at all Being so restless that it is hard to sit still: 0 = Not at all Becoming easily annoyed or irritable: 0 = Not at all Feeling afraid as if something awful might happen: 0 = Not at all Total ALLEY-7 score (0-4 normal; 5-9 mild; 10-14 moderate; 15-21 severe): 1 Source: Developed by Drs. Ricky Lafleur, Dara Krueger, Jordan Ly and colleagues, with an educational stacey from [employer]. ALLEY-7 Assessment Billing ALLEY-7 Assessment Tool: ALLEY-7 Assessment 27154 Physical exam (Primary Care) Vital Signs: Last Vital Signs Temp 97.4 F 08/28/24 09:17 Pulse 95 08/28/24 09:17 Resp 12 08/28/24 09:17 BP 122/70 08/28/24 09:17 Pulse Ox 99 08/28/24 09:17 Oxygen Delivery Method Room Air 08/28/24 09:17 BMI result Body Mass Index 23.6 Tobacco/Smoking Status: Tobacco use Status Tobacco use date assessed 08/28/24 08/28/24 09:14 Patient Tobacco Use Status Never used Tobacco 08/28/24 09:14 e-Cigarette/Vaping Use Never Used 08/28/24 09:14 PHQ-9: PHQ-9 Score PHQ-9: Total score 4 08/28/24 09:14 Depression Screening Interpretation: Negative Thrive Assessment: Date of Thrive Assessment Date Thrive assessed 08/28/24 08/28/24 09:14 Currently or been in a relationship where the following occur: No concerns reported Results Reviewed Results Reviewed: [address] [address] [address] Scan Report Signed Patient: Dariana Kilgore MR#: [id number] : 1945 Acct:[id number] Age/Sex: 79 / F ADM Date: 08/21/24 Loc: HO.CT Attending Dr: Lynnette ODOM Ordering Physician: Lynnette Barbosa Date of Service: 08/21/24 Procedure(s): CT abdomen wo/w IV con Accession Number(s): [id number] cc: Scooby Shafer MD; Lynnette Barbosa [facility]~ Report Number: [id number]: Total DLP = 286.00 mGy-cm EXAMINATION: CT ABDOMEN WITHOUT THEN WITH IV CONTRAST HISTORY: R14.0 - Abdominal distension (gaseous) COMPARISON: None. TECHNIQUE: CT scan of the abdomen was performed before and after the intravenous administration of 85 mL Omnipaque 350. Coronal and sagittal reformatted images were generated and reviewed. The patient received oral contrast material. This CT exam was performed with one or more of the following dose reduction techniques: automated exposure control, adjustment of the mA and/or kV according to patient size, use of iterative reconstruction technique. DLP: 286 mGy-cm ABDOMEN: LOWER CHEST: The visualized lung bases are clear. There is no pleural effusion. CARDIOVASCULATURE: The heart is normal in size. There is no pericardial effusion. LIVER: The liver is normal in size and contour. No liver mass is identified. The hepatic and portal veins are patent. GALLBLADDER / BILE DUCTS: The gallbladder is unremarkable. There is no intra or extrahepatic biliary ductal dilatation. SPLEEN: The spleen is normal in size. No focal splenic lesion is identified. PANCREAS: The pancreas is unremarkable in appearance. No enhancing mass or ductal dilatation is identified. ADRENAL GLANDS: Within normal limits. KIDNEYS/RETROPERITONEUM: No renal calculi are identified. There is no hydronephrosis. There is a subcentimeter probable cyst at the upper pole of the right kidney. LYMPH NODES: No abdominal or pelvic lymphadenopathy. VASCULATURE: The abdominal aorta demonstrates atherosclerotic calcification, but is normal in caliber. MESENTERY/PERITONEUM: No free fluid. No masses. There is no free intraperitoneal gas. STOMACH: The stomach is collapsed, limiting evaluation. SMALL BOWEL: The visualized small bowel is normal in caliber. COLON: The visualized portion of the colon is unremarkable. BONES / SOFT TISSUES: No suspicious bony or soft tissue abnormalities. CT/CT abdomen wo/w IV con IMPRESSION: Unremarkable unenhanced and contrast-enhanced CT of the abdomen. No evidence of a pancreatic mass. Electronically signed by: Ricky Staples MD 08/21/2024 10:54 AM EDT RP Coding Level of Care Code Est Pt Level 4 (32248) Complex EM visit Add On G2211 Diagnoses Elevated bilirubin R17 Abdominal bloating R14.0 Elevated pancreatic enzyme R74.8 Other insomnia G47.09 Insomnia type: other insomnia Elevated fasting blood sugar R73.01 Additional Codes ALLEY-7 Assessment Billing - ALLEY-7 Assessment Tool: ALLEY-7 Assessment 26690 ([id number]) PHQ-9 - 82858 - PHQ-9 Billing: Yes ([id number]) Assessment & Plan Assessment & Plan (1) Elevated bilirubin: Code(s): R17 - Unspecified jaundice Category: Medical (2) Abdominal bloating: Code(s): R14.0 - Abdominal distension (gaseous) Category: Medical (3) Elevated pancreatic enzyme: Code(s): R74.8 - Abnormal levels of other serum enzymes Category: Medical (4) Insomnia: Code(s): G47.00 - Insomnia, unspecified Category: Medical Qualifiers: Insomnia type: other insomnia Qualified Code(s): G47.09 - Other insomnia (5) Elevated fasting blood sugar: Code(s): R73.01 - Impaired fasting glucose Category: Medical Plan . Orders: Orders Comprehensive [place]. Panel Fast 01/18/25 I10 - Essential (primary) hypertension, R14.0 - Abdominal distension (gaseous), R17 - Unspecified jaundice, R73.01 - Impaired fasting glucose, R74.8 - Abnormal levels of other serum enzymes Hemoglobin A1c 01/18/25 I10 - Essential (primary) hypertension, R14.0 - Abdominal distension (gaseous), R17 - Unspecified jaundice, R73.01 - Impaired fasting glucose, R74.8 - Abnormal levels of other serum enzymes Lipid Panel 01/18/25 I10 - Essential (primary) hypertension, R14.0 - Abdominal distension (gaseous), R17 - Unspecified jaundice, R73.01 - Impaired fasting glucose, R74.8 - Abnormal levels of other serum enzymes Amylase 01/18/25 I10 - Essential (primary) hypertension, R14.0 - Abdominal distension (gaseous), R17 - Unspecified jaundice, R73.01 - Impaired fasting glucose, R74.8 - Abnormal levels of other serum enzymes Medications: Discontinued mirtazapine Discontinued Reason: Patient no longer taking 7.5 mg PO BEDTIME 30 days 30 tabs 2RF Patient Instructions: Patient Instructions - Stop taking mirtazapine. - Use simethicone as needed for bloating. - Chew slowly to avoid swallowing air. - Notify us if significant weight loss or abdominal changes occur.
[2024-08-28 09:17] VITALS: BP 122/70; PULSE 95; RESP 12; TEMP 36.3; O2SAT 99; BMI 23.6
== END 2024-08-28 16:34 | disposition home or self-care (01) ==
LOC: HO.HMCFM 08:52
PROVIDERS: PCP Family Medicine; Visit Provider Nurse Practitioner Family
DX: R17 Unspecified jaundice (principal); R14.0 Abdominal distension (gaseous); R74.8 Abnormal levels of other serum enzymes; G47.09 Other insomnia; R73.01 Impaired fasting glucose

== ENCOUNTER → 2024-08-28 08:51 | Outpatient (BNVA) | payer MEDICARE, OTHER, SELFPAY | PROVIDERS: PCP Family Medicine; Visit Provider Nurse Practitioner Family | DX: R17 Unspecified jaundice (principal); R14.0 Abdominal distension (gaseous); R74.8 Abnormal levels of other serum enzymes; G47.09 Other insomnia; R73.01 Impaired fasting glucose | CPT/HCPCS: 96127; 99212 ==

== ENCOUNTER 2024-12-22 23:18 | Inpatient (IN) | payer MEDICARE, OTHER, SELFPAY ==
--- OUTSIDE RECORDS SUMMARY | 2022-10-03 09:45 | XMS_ITS | Encounter Summary ---
Author Organization [facility] Address [address] [place] [address] Phone Care Team Providers Care Cocoa Butter Filter Operator Name Role Phone Sherrell Vidal MASK FORMER Primary Care Provider Encounter Details Date Type Department Care Team (Late st Contact Info) Description 10/03/2022 9:45 AM EDT Hospital Encounter [facility] [address] [place] [phone] Iona Gonzalez, MASK FORMER [address] [place] [address] [email or web address] Social History Tobacco Use Types Packs/Day Years [...] middle phalanx,likely a nondisplaced fracture. Iona Gonzalez MASK FORMER IMG XR LOWER EXTREMITY Edit ed Result - Final documented in this encounter Visit Diagnoses Not on filedocumented in this encounter Care Teams Cocoa Butter Filter Operator Relationship Specialty Start Date End Date Sherrell Vidal NP PCP - General Nurse Practitioner 10/03/22 06/10/23 documented as of this encounter Additional Source Comments The information contained in this document represents components of the legal health record. It is not the complete legal health record.[facility]
--- OUTSIDE RECORDS SUMMARY | 2023-06-11 08:43 | XMS_ITS | Encounter Summary ---
Author Organization [facility] Address [address] [place] [address] Phone Care Team Providers Care Plaster Machine Tender Name Role Phone Scooby Shafer MD Primary Care Provider Encounter Details Date Type Department Care Team (Late st Contact Info) Description 06/11/2023 8:43 AM EDT Hospital Encounter [facility] [address] [place] [address] Iona Gonzalez, NUTRITION EDUCATOR [address] [place] [address] [email or web address] Social History Tobacco Use Types [...] communicated on 06/11/2023 9:08 AM, Message ID [id number]. Narrative 06/11/2023 9:08 AM EDT XR ANKLE 3 OR MORE VIEWS (LEFT) Referring clinician's provided indication for this examination in [facility]: Pain; twisted ankle ? fx COMPARISON: [...] clinician's provided indication for this examination in [facility]:Pain; twisted ankle ? fx COMPARISON: None [...] was communicated on 06/11/2023 9:08 AM,Message ID [id number]. us Iona B Whitehill NUTRITION EDUCATOR IMG XR LOWER EXTREMITY Nishi l Result documented in this encounter Visit Diagnoses Not on filedocumented in this encounter Care Teams Plaster Machine Tender Relationship Specialty Start Date End Date Scooby Shafer MD [address] [place] [address] PCP - General Family Medicine 06/11/23 documented as of this encounter Additional Source Comments The information contained in this document represents components of the legal health record. It is not the complete legal health record.[facility]
--- OUTSIDE RECORDS SUMMARY | 2023-06-11 09:13 | XMS_ITS | Encounter Summary ---
Author Organization [facility] Address [address] [place] [address] Phone Care Team Providers Care Media Buyer Name Role Phone Scooby Shafer MD Primary Care Provider Encounter Details Date Type Department Care Team (Late st Contact Info) Description 06/11/2023 9:13 AM EDT Hospital Encounter [facility] [address] [place] [address] Iona Gonzalez, ADJUNCT PSYCHOLOGY PROFESSOR [address] [place] [address] [email or web address] Social History Tobacco Use Types Packs/Day [...] metatarsal avulsion fractures. us Iona B Ivanll ADJUNCT PSYCHOLOGY PROFESSOR IMG XR LOWER EXTREMITY Nishi l Result documented in this encounter Visit Diagnoses Not on filedocumented in this encounter Care Teams Media Buyer Relationship Specialty Start Date End Date Scooby Shafer MD [address] [place] [address] PCP - General Family Medicine 06/11/23 documented as of this encounter Additional Source Comments The information contained in this document represents components of the legal health record. It is not the complete legal health record.[facility]
--- NOTE | ~2024-12-22 | CT_ITS ---
CLINICAL HISTORY: PE CT angiography chest with contrast. 3D Postprocessing. Comparison: None provided Findings: The heart is normal in size. There is no pericardial effusion. The thoracic aorta is normal caliber. No pulmonary artery filling defects. Mildly enlarged subcarinal lymph node measures 1.2 cm in short axis (axial image 25 of series 5). Hmcjznpk-yo-irhnn bilateral pleural effusions are seen with adjacent atelectasis. Anterior right lower lobe consolidation is also seen containing some air bronchograms. Linear atelectasis is seen in the right middle lobe and lingula. The upper abdomen is unremarkable. Ybcg-af-ipscyidv degenerative changes are seen in the spine. No acute osseous abnormality is identified. IMPRESSION: 1. No acute pulmonary embolus is identified. 2. Yhqvlfkm-fq-jvkeq bilateral pleural effusions with adjacent atelectasis. Anterior right lower lobe consolidation contains some air bronchograms suspicious for pneumonia. 3. Mildly enlarged subcarinal lymph node. This document has been electronically signed by: Pollo Velasco on 12/23/2024 05:59:24
--- NOTE | ~2024-12-22 | XR_ITS ---
CLINICAL HISTORY: sob Chest X-ray, 1 View COMPARISON: None provided FINDINGS: Bilateral lower lung consolidations. Possible bilateral pleural effusions. No pneumothorax. No cardiomegaly. No acute fracture. IMPRESSION: Bilateral lower lung consolidations, which could be due to pneumonia. Possible bilateral pleural effusions. This document has been electronically signed by: Frederick Smith MD on 12/23/2024 00:22:38
--- NOTE | 2024-12-22 23:29 | ECG_ITS ---
Test Reason : SOB Blood Pressure : */* mmHG Vent. Rate : 118 BPM Atrial Rate : 118 BPM P-R Int : 152 ms QRS Dur : 124 ms QT Int : 358 ms P-R-T Axes : 66 1 145 degrees QTcB Int : 501 ms Sinus tachycardia Left bundle branch block Abnormal ECG When compared with ECG of 03-Sep-2023 10:43, No significant changes seen Referred By: Lila Mack Electronically Signed By: WILSON ARAMBULA
--- NOTE | 2024-12-22 23:30 | ED.GENADULT ---
[facility] - General Adult General Chief complaint: Dyspnea Stated complaint: sob,chest pain,?covid Time Seen by Provider: 12/22/24 23:20 Source: patient Mode of arrival: ambulatory Limitations: no limitations History of Present Illness ED Provider: Dr. Mack HPI narrative: 79-year-old female history of hypertension presented hospital today for evaluation of shortness of breath. Patient was found to be satting at 90% on room air. Given supplemental O2 and DuoNeb. Recently diagnosed with COVID. Patient then became to be hypoxic tachypneic. Satting in the 80%. Patient was then brought to the hospital here. On arrival the patient does appear to be in respiratory failure and in his distress. Denies any history of CHF. Bilateral rales appreciated on exam Related Data Home Medications ?Medication ?Instructions ?Recorded ?Confirmed aspirin 325 mg tablet 325 mg PO DAILY 10/26/20 08/28/24 cholecalciferol (vitamin D3) 10 10 mcg PO DAILY 01/16/23 08/28/24 mcg (400 unit) capsule Previous Rx's ?Medication ?Instructions ?Recorded amlodipine 5 mg tablet 5 mg PO BID 90 days #180 tabs 03/04/24 atorvastatin 40 mg tablet 40 mg PO DAILY 3 months #90 tabs 03/11/24 losartan 100 mg tablet 100 mg PO DAILY 90 days #90 tabs 12/22/24 Allergies Allergy/AdvReac Type Severity Reaction Status Date / Time Penicillins (PCN) Allergy Mild RASH Verified 12/22/24 23:48 pravastatin AdvReac Intermediate body aches Verified 12/22/24 23:48 Review of Systems Review of Systems: Pertinent review of systems as mentioned in HPI. All other system otherwise negative. [facility] Past Medical History [facility] Narrative: Medical history as mentioned in HPI Medical History Wears hearing aid in both ears COVID-19 vaccine series completed Hx of cerebral infarction Dupuytren contracture Hypercholesteremia Hypertension Surgical History Hx of squamous cell carcinoma excision Hx of tonsillectomy Hx of hand surgery H/O colonoscopy (~2016) Family History Family History Other Mental health disorder Substance abuse Social History Social History Housing: House Are you a primary chiropractic care to a significant other at home: No Do you presently have visiting nurse or other home services: No Patient Tobacco Use Status: Never used Tobacco Smoked in Last 30 Days: No e-Cigarette/Vaping Use: Never Used Second Hand Smoke Exposure: No Use of substances other than those prescribed or required for medical reasons: No Advance Directives: No Advance Directives Information Provided: Yes service: No Current occupational status: retired Current occupational exposures/hazards: No Cognitive needs: No Hearing needs: Yes Vision needs: No Physical Exam ED Exam Exam: General: Appears to be tachypneic in respiratory distress struggling to breathe. Head: Normacephalic, atraumatic ENT: oral mucosa moist, neck supple, no tracheal deviation Cardiovascular: Tachycardic rate, regular rhythm, no murmurs, rubbing, gallops Respiratory: Bilateral rales appreciated on exam Gastrointestinal: Soft, non distended, non tender, non guarding Extremities: No limb pain or swelling, no calf tenderness Neurological: Awake and alert, no facial droop noted Skin: Warm and dry Psychiatric: Appropriate mood and thoughts Vital Signs: Vital Signs - 24 hr 12/22/24 23:45 12/22/24 23:49 12/22/24 23:54 Temperature 97.1 F Pulse Rate 119 H 103 H Respiratory Rate 26 H 20 22 H Blood Pressure 131/63 135/64 Pulse Oximetry 78 L 94 Oxygen Delivery Method Nasal Cannula BiPAP 12/23/24 00:20 12/23/24 01:59 12/23/24 02:10 Temperature 97.8 F Pulse Rate 109 H 93 Respiratory Rate 19 17 16 Blood Pressure 148/67 H 124/61 Pulse Oximetry 95 96 Oxygen Delivery Method BiPAP BiPAP BMI result Body Mass Index 24.4 Medications Administered Discontinued Medications Generic Name Dose Route Start Last Admin Trade Name Freq PRN Reason Stop Dose Admin Aspirin 324 mg 12/22/24 23:38 12/23/24 00:08 Aspirin 81 Mg Tab.Chew PO 12/22/24 23:39 324 mg ONCE ONE Administration Ceftriaxone Sodium 2 gm 12/22/24 23:48 12/23/24 00:00 Ceftriaxone Sodium 2 Gm Vial IVPUSH 12/22/24 23:49 2 gm ONCE ONE Administration Furosemide 20 mg 12/22/24 23:46 12/23/24 00:05 Furosemide 20 Mg/2 Ml Vial IVPUSH 12/22/24 23:47 20 mg ONCE ONE Administration Protocol Furosemide 20 mg 12/23/24 01:44 12/23/24 01:58 Furosemide 20 Mg/2 Ml Vial IVPUSH 12/23/24 01:45 20 mg ONCE ONE Administration Protocol Magnesium Sulfate 2 gm in 50 mls @ 50 mls/hr 12/22/24 23:26 12/23/24 01:04 Magnesium Sulfate/H2o IV 12/23/24 00:25 Infused ONCE ONE Infusion Levofloxacin 750 mg in 150 mls @ 100 mls/hr 12/23/24 00:16 12/23/24 01:58 Levaquin IV 12/23/24 01:45 Infused ONCE ONE Infusion Insulin Human Lispro 0 unit 12/23/24 03:00 12/23/24 03:16 Insulin Lispro 100 Unit/Ml 3 Ml Vial SUBCUT Not Given Q6H LIZABETH Protocol Melatonin 6 mg 12/23/24 01:33 12/23/24 01:58 Melatonin 3 Mg Tablet PO 12/23/24 01:34 6 mg ONCE ONE Administration Methylprednisolone Sodium Succinate 125 mg 12/22/24 23:26 12/22/24 23:39 Methylprednisolone Sod Succ 125 Mg/2 Ml Vial IVPUSH 12/22/24 23:27 125 mg ONCE ONE Administration Metoclopramide HCl 5 mg 12/22/24 23:46 12/23/24 00:02 Metoclopramide Hcl 10 Mg/2 Ml Vial IV 12/22/24 23:47 5 mg ONCE ONE Administration Nitroglycerin 1 inch 12/22/24 23:38 12/22/24 23:56 Nitroglycerin 2 % Oint 1 Gm Packet TRANSDERMA 12/22/24 23:39 1 inch ONCE ONE Administration Ondansetron HCl 4 mg 12/22/24 23:24 12/22/24 23:39 Ondansetron Hcl 4 Mg/2 Ml Vial IVPUSH 12/22/24 23:25 4 mg ONCE ONE Administration Medical Decision Making Medical Decision Making MDM Narrative: 79-year-old female presented hospital today for acute hypoxic respiratory failure. Patient is noted to be satting at 74% on nasal cannula upon arrival to the room. Patient does appear to be tachypneic. BiPAP was placed on patient. IV access was obtained. IV Solu-Medrol and IV magnesium will be initiated. After further assessment I suspect this is likely pulmonary edema. Patient stated that she has been having some chest pain for the past couple of days. It is pressure-like in sensation. Patient had recently received her COVID vaccine. Chest x-ray will be obtained. CBC chemistry troponin and BNP will be obtained as well. We will obtain a VBG. EKG will be obtained for the patient. I reviewed patient's EKG no sign of STEMI. Chest x-ray did show right lower lobe pneumonia with some left pleural effusion. Antibiotic will be initiated with the patient. She does have leukocytosis 13. EKG did not show any signs of STEMI. Patient does have signs of left bundle-branch block First troponin is 26. 2nd troponin 27. Suspect patient likely has NSTEMI in setting of possible pneumonia. She is currently asymptomatic of any chest pain. Her BNP is elevated. Discussed the case with the ICU team. They recommended obtain a CTA of the chest to rule out PE. We will plan to order CTA of the chest. Patient will be admitted to the ICU given her BiPAP requirement. IV Lasix was given for diuresis for the patient. I suspect patient likely has new onset CHF Differential Diagnosis Differential Diagnoses: The differential diagnosis associated with the presentation includes Pulmonary edema, pleural effusion, ACS, CAD, COPD exacerbation, pneumonia Consult Healthcare Provider Management of the patient was discussed with: Orthotist/Prosthetist ICU Lab Data [facility] Lab Attestation statement: I reviewed the patient's lab results. 12/22/24 23:34 12/22/24 23:34 Labs: Lab Results 12/22/24 12/22/24 12/23/24 Range/Units 23:34 23:46 00:45 WBC 13.2 H (4.8-10.8) X10*3/uL RBC 4.03 L (4.20-5.50) X10*6/uL Hgb 12.9 (12.0-16.0) g/dl Hct 36.2 L (37.0-47.0) % MCV 89.8 (80.0-98.0) fL MCH 32.0 (27.0-33.0) pg MCHC 35.6 H (31.0-35.0) g/dl RDW 13.0 (11.0-16.0) % Plt Count 273 (160-400) X10*3/uL MPV 10.4 (9.4-12.3) fL Immature Gran % (Auto) 0.5 H (0.0-0.4) % Neut % (Auto) 83.2 H (45-73) % Lymph % (Auto) 7.0 L (20-40) % [place] % (Auto) 8.2 (2-11) % Eos % (Auto) 0.8 (0-4) % Baso % (Auto) 0.3 (0-2) % Lymph # (Auto) 0.9 L (1.2-4.9) X10*3/uL [place] # (Auto) 1.1 (0.1-1.2) X10*3/uL Eos # (Auto) 0.1 (0.0-0.4) X10*3/uL Baso # (Auto) 0.0 (0.0-0.2) X10*3/uL Abs Immat Gran (auto) 0.06 H (0.00-0.03) X10*3/uL Absolute Neuts (auto) 11.0 H (2.0-8.3) x10*3/uL Absolute Nucleated RBC 0.000 (0.0-0.012) X10*3/uL Nucleated RBC % (auto) 0.0 (0.0-0.2) /100WBC VBG pH 7.26 L (7.32-7.43) VBG pCO2 30 mmHg VBG pO2 76 mmHg VBG HCO3 14 L (22-26) mmol/L VBG O2 Saturation 91.0 % VBG Base Excess -11.3 mmol/L Sodium 126 L (135-145) mmol/L Potassium 4.0 (3.3-5.1) mmol/L Chloride 95 L (96-108) mmol/L Carbon Dioxide 19 L (22-29) mmol/L Anion Gap 16 (12-20) BUN 11 (9-16) mg/dL Creatinine 0.59 (0.5-1.4) mg/dL Estim Creat Clear Calc 66.1 Estimated GFR > 60 Random Glucose 200 H (60-115) mg/dL Lactic Acid 2.4 H* (0.5-2.0) mmol/L Lactic Acid F/U @ 2Hr (0.5-2.0) mmol/L Calcium 8.5 D (8.4-10.2) mg/dL Total Bilirubin 1.2 H (0.0-1.0) mg/dL AST 37 H (5-31) U/L ALT 31 (0-31) U/L Alkaline Phosphatase 94 (39-117) U/L Troponin I High Sens 26.1 H D 27.7 H (<3.5-17.0) ng/L NT-Pro-B Natriuret Pep 2196.8 H (<300) pg/mL Total Protein 7.2 (6.5-8.0) g/dL Albumin 4.4 (3.5-5.0) g/dL COVID-19 (KRYSTLE) Positive A (Negative) COVID-19 Clin Com See Note Influenza Type A (VEDA) Negative (Negative) Influenza Type B (VEDA) Negative (Negative) Influenza A & B Note See Note 12/23/24 Range/Units 02:06 WBC (4.8-10.8) X10*3/uL RBC (4.20-5.50) X10*6/uL Hgb (12.0-16.0) g/dl Hct (37.0-47.0) % MCV (80.0-98.0) fL MCH (27.0-33.0) pg MCHC (31.0-35.0) g/dl RDW (11.0-16.0) % Plt Count (160-400) X10*3/uL MPV (9.4-12.3) fL Immature Gran % (Auto) (0.0-0.4) % Neut % (Auto) (45-73) % Lymph % (Auto) (20-40) % [place] % (Auto) (2-11) % Eos % (Auto) (0-4) % Baso % (Auto) (0-2) % Lymph # (Auto) (1.2-4.9) X10*3/uL [place] # (Auto) (0.1-1.2) X10*3/uL Eos # (Auto) (0.0-0.4) X10*3/uL Baso # (Auto) (0.0-0.2) X10*3/uL Abs Immat Gran (auto) (0.00-0.03) X10*3/uL Absolute Neuts (auto) (2.0-8.3) x10*3/uL Absolute Nucleated RBC (0.0-0.012) X10*3/uL Nucleated RBC % (auto) (0.0-0.2) /100WBC VBG pH (7.32-7.43) VBG pCO2 mmHg VBG pO2 mmHg VBG HCO3 (22-26) mmol/L VBG O2 Saturation % VBG Base Excess mmol/L Sodium (135-145) mmol/L Potassium (3.3-5.1) mmol/L Chloride (96-108) mmol/L Carbon Dioxide (22-29) mmol/L Anion Gap (12-20) BUN (9-16) mg/dL Creatinine (0.5-1.4) mg/dL Estim Creat Clear Calc Estimated GFR Random Glucose (60-115) mg/dL Lactic Acid (0.5-2.0) mmol/L Lactic Acid F/U @ 2Hr 1.4 (0.5-2.0) mmol/L Calcium (8.4-10.2) mg/dL Total Bilirubin (0.0-1.0) mg/dL AST (5-31) U/L ALT (0-31) U/L Alkaline Phosphatase (39-117) U/L Troponin I High Sens (<3.5-17.0) ng/L NT-Pro-B Natriuret Pep (<300) pg/mL Total Protein (6.5-8.0) g/dL Albumin (3.5-5.0) g/dL COVID-19 (KRYSTLE) (Negative) COVID-19 Clin Com Influenza Type A (VEDA) (Negative) Influenza Type B (VEDA) (Negative) Influenza A & B Note Independent Interpretation I performed an independent interpretation of an: EKG and Plain X-Ray Radiology Impression Discussion of test interpretation with radiology: I have reviewed the radiologist's reading. Critical Care Time Critical Care Time Critical Care Time: Yes Total Critical Care Time: 56 Attestation: Time is exclusive of separately billable procedures. Time includes: direct patient care, patient reassessment, coordination of patient care, interpretation of data (laboratory data, pulse oximetry, arterial blood gases and chest xrays), review of patient's medical records, medical consultation and documentation of patient care. Procedures excluded from critical care time: central intravenous line placement and electrocardiography. Discharge Plan Discharge Clinical Impression: Acute hypoxic respiratory failure, CHF (congestive heart failure), Pneumonia, COVID Patient Disposition: Admitted As Inpatient
[2024-12-22] MEDS: Magnesium Sulfate/H2O 2 GM/50 ML PIGGYBACK IV (23:39)
[2024-12-22 23:40] VITALS: PULSE 120; O2SAT 89
[2024-12-22 23:41] LABS: MANUAL DIFF FLAG NO
[2024-12-22 23:44] LABS: Venous Blood Gas Refer to POC result
[2024-12-22 23:44] LABS: Hematocrit 36.2 % (37.0-47.0); Hemoglobin 12.9 g/dl (12.0-16.0); Imm Gran Abs Auto 0.06 X10*3/uL (0.00-0.03); Imm Gran Pct Auto 0.5 % (0.0-0.4); Lymphocytes Absolute Auto 0.9 X10*3/uL (1.2-4.9); Mean Corpuscular HGB Conc 35.6 g/dl (31.0-35.0); Mean Corpuscular Hemoglobin 32.0 pg (27.0-33.0); Mean Corpuscular Volume 89.8 fL (80.0-98.0); NRBC Abs Auto 0.000 X10*3/uL (0.0-0.012); NRBC Pct Auto 0.0 /100WBC (0.0-0.2); Platelet Count 273 X10*3/uL (160-400); Red Blood Count 4.03 X10*6/uL (4.20-5.50); White Blood Count 13.2 X10*3/uL (4.8-10.8)
[2024-12-22 23:45] VITALS: BP 131/63; PULSE 119; RESP 26; TEMP 36.2; O2SAT 78; BMI 24.4
[2024-12-22 23:49] VITALS: BP 135/64; PULSE 103; RESP 20; O2SAT 94
[2024-12-22 23:49] LABS: VBG HCO3 14 mmol/L (22-26); VBG O2 % Saturation 91.0 %
[2024-12-22 23:54] VITALS: PULSE 115; RESP 22; O2SAT 95
[2024-12-22] MEDS: Nitroglycerin 2 % Oint 1 GM Packet 1 INCH TRANSDERMA (23:56)
[2024-12-22 23:59] LABS: Alanine Aminotransferase 31 U/L (0-31); Albumin Level 4.4 g/dL (3.5-5.0); Alkaline Phosphatase 94 U/L (39-117); Anion Gap 16 (12-20); Aspartate Amino Transferase 37 U/L (5-31); Blood Urea Nitrogen 11 mg/dL (9-16); Calcium 8.5 mg/dL (8.4-10.2); Carbon Dioxide 19 mmol/L (22-29); Chloride 95 mmol/L (96-108); Creatinine Clr Calc Pharmacy 66.1; Estimated Glomerular Filt Rate > 60; Potassium 4.0 mmol/L (3.3-5.1); Sodium 126 mmol/L (135-145); Total Protein 7.2 g/dL (6.5-8.0)
[2024-12-23] VITALS (24 sets, daily range): BP systolic 97–148; BP diastolic 51–70; PULSE 81–109; RESP 12–24; TEMP 36.3–36.9; O2SAT 88–100; BMI 25.0
[2024-12-23 00:03] LABS: NT Pro B Type Natriuretic Pept 2196.8 pg/mL (<300); Troponin-I High Sensitivity 26.1 ng/L (<3.5-17.0)
[2024-12-23 00:05] LABS: COVID-19 Test Positive (Negative); IDNOW Serial# 55D5AD1C; IDNOW Serial# 58CA691E; Influenza B2 Negative (Negative)
[2024-12-23] MEDS: Furosemide 20 MG/2 ML VIAL IVPUSH ×2 (00:05→01:58)
--- NOTE | 2024-12-23 00:20 | PC.NURSE ---
pt in fluid overload. no sepsis IV fluids at this time per MD
[2024-12-23 01:26] LABS: Troponin-I High Sensitivity 27.7 ng/L (<3.5-17.0)
[2024-12-23 01:39] LABS: Reflex Lactate? Lactic Acid Added
--- OUTSIDE RECORDS SUMMARY | 2024-12-23 02:26 | XMS_ITS ---
Author Name [facility] Organization Unknown Care Team Organization Name Specialty Phone Email Start Date End Da te [facility] Jil [facility] 01/31/202210/24
--- OUTSIDE RECORDS SUMMARY | 2024-12-23 02:26 | XMS_ITS | Clinical Summary ---
Author Organization [facility] Address [address] [place] [id number] Phone Care Team Providers Care Water Commissioner Name Role Phone Scooby Shafer MD Primary Care Provider Allergies Active Allergy Reactions Criticality Noted Date Comments Penicillins Rash Low 12/29/2020 Pyufsle-Itl-Jyv Reductase Inhibitors 09/10/2024 Medications diphenhydrAMINE (BENADRYL) 25 mg capsule Take 25 mg by mouth every 6 (six) hours as needed for itching. Active lisinopril (PRINIVIL,ZESTR IL) 40 MG tablet Take 40 mg by mouth daily. Active amLODIPine (NORVASC) 5 MG tablet Take 5 mg by mouth daily. Active aspirin 325 MG EC tablet Take 325 mg by mouth daily. Active bacillus coagulans-inuli n 1 billion-250 cell-mg Cap Take 250 mg by mouth daily. Active glucosamine sulfate 1,000 mg Tab Take 2,000 mg by mouth. Active atorvastatin (LIPITOR) 40 MG tablet Take 40 mg by mouth daily. 1 Active clindamycin (CLEOCIN) 300 MG capsule Take 1 capsule (300 mg total) by mouth 3 (three) times a day. 21 capsule 1 Active Additional Information Patient not taking.Reported on 09/10/2024 losartan (COZAAR) 100 MG tablet Take 1 tablet by mouth every morning. 5 Active mirtazapine (REMERON) 7.5 MG tablet take 1 tablet by mouth everyday at bedtime 5 Active Active Problems No known active problems Immunizations Immunization Administration Dates Next Due COVID-19 (Pre-01/15) Moderna Vaccine, mRNA, PF 06/28/2020,05/31/2020 INFLUENZA, SPLIT VIRUS, TRIV ALENT W/ PRESERVATIVE IM 12/04/2017,12/11/2012,12/20/2010 Influenza High-Dose Quadriva lent Preservative Free IM 12/28/2021,12/13/2019 Influenza High-Dose Trivalen t Preservative Free IM 12/18/2018,12/20/2017,01/12/2015 Influenza Quadrivalent Adjuv anted Preservative Free IM 12/18/2022,12/29/2020 Influenza Trivalent Adjuvant ed Preservative free IM 12/19/2016,01/07/2016 Influenza, Unspecified Formulation 12/29/2020 Pneumococcal conjugate PCV13 07/28/2015 Pneumococcal polysaccharide PPSV23 01/25/2011 Td (adult),2 Lf Tetanus Toxo id, PF, Adsorbed 02/05/2017 Td, unspecified formulation 11/26/2003 Zoster live 08/16/2011 Social History Tobacco Use Types Packs/Day Years Used Date Smoking Tobacco: Never Smokeless Tobacco: Never Tobacco Cessation:Counseling Given: Not Answered Education Answer Date Recorded Are you interested [...] on file Sexual Orientation Not on file Last Filed Vital Signs Vital Sign Reading Time Taken Comments Blood Pressure 135/83 09/10/2024 8:50 AM EDT Pulse 68 09/10/2024 8:50 AM EDT Temperature 36 C (96.8 F) 09/10/2024 8:50 AM EDT Respiratory Rate 16 09/10/2024 8:50 AM EDT Oxygen Saturation 99% 09/10/2024 8:50 AM EDT Inhaled Oxygen Concentration - - Weight 56.7 kg (125 lb) 10/03/2022 9:23 AM EDT Height 152.4 cm (5') 12/29/2020 5:29 PM EDT Body Mass Index 24.41 12/29/2020 5:29 PM EDT Plan of Treatment Health Maintenance Due Date Last Done Comments CREATININE LEVEL 1945 LIPID PANEL 1945 POTASSIUM LEVEL 1945 DEPRESSION SCREENING 1957 HEPATITIS C SCREENING 08/04/1963 OSTEOPOROSIS SCREENING INITIAL (ONE-TIME) 2010 ZOSTER VACCINES (2 of 3) 10/11/2011 08/16/2011 RSV VACCINE (1 - 1-dose 75+ series) 2020 INFLUENZA VACCINE (#1) 2024 , 12/18/2022, 12/28/2021, Additional history exists COVID-19 VACCINE ( season) 2024 12/12/2023, 12/28/2021, 07/20/2021, Additional history exists Adult Td,Tdap Booster 02/05/2027 02/05/2017, 004 PNEUMOCOCCAL VACCINES (50+ years) Completed 07/28/2015, 01/25/2011 SMOKING STATUS SCREENING (Once After 26 Yrs) Completed 09/10/2024 HEPATITIS A VACCINES Aged Out No long er eligible based on patient's age to complete this topic HIB VACCINES Aged Out No longer eligi ble based on patient's age to complete this topic MENINGOCOCCAL VACCINES (ACWY) Aged Out No longer eligible based on patient's age to complete this topic MENINGOCOCCAL VACCINES (B) Aged Out N o longer eligible based on patient's age to complete this topic Medical Devices Not on file Insurance MEDICARE PART A & B Member Subscriber Plan / Payer (Ef fective 2011-Present) Name:Dariana Kilgore Member ID:[id number] Relation to Subscriber:Self Name:Dariana Kilgore Subscriber ID:[id number] Payer ID:[id number] Group ID:Not on file Type:Medicare Address: [employer] [address] MEDICARE SUPPLEMENT MEDICARE PART A & B MEDICARE SUPPLEMENT MEDICARE PART A & B [facility] MEDICARE SUPP[place]MENT [place] [id number] MEDICARE PART A & B [facility] MEDICARE SUPPLEMENT MEDICARE PART A & B [facility] MEDICARE SUPPLEMENT MEDICARE PART A & B [facility] MEDICARE SUPPLEMENT MEDICARE PART A & B MEDICARE SUPPLEMENT MEDICARE PART A & [place] [address] [address] [place] [address] MEDICARE SUPPLEMENT MEDICARE PART A & B Member Subscriber Plan / Payer (Ef fective 2011-Present) Name:Dariana Kilgore Member ID:[id number] Relation to Subscriber:Self Name:Dariana Kilgore Subscriber ID:[id number] Payer ID:[id number] Group ID:Not on file Type:Medicare Address: [facility] [address] [address] [facility] MEDICARE SUPPLEMENT Care Teams Water Commissioner Relationship Specialty Start Date End Date Scooby Shafer MD [address] [place] [address] PCP - General Family Medicine 06/11/23 Additional Source Comments The information contained in this document represents components of the legal health record. It is not the complete legal health record.[facility]
[2024-12-23 02:36] LABS: ~Lactic Acid-LAB USE ONLY 1.4 mmol/L (0.5-2.0)
--- NOTE | 2024-12-23 03:07 | P.HPCC_ITS ---
History of Present Illness Date of Service: 12/23/24 <YAHIR Delcid - Last Filed: 12/23/24 21:00> Attending physician on admission: Hollis Burgos <YAHIR Delcid - Last Filed: 12/23/24 21:00> Chief Complaint: Acute hypoxic res failure, sepsis, covid 19 <YAHIR Delcid - Last Filed: 12/23/24 21:00> [age] year old female with underlying history of hypertension, hyperlipidemia, cerebral infarction, the patient had complaint of shortness of breath, chest pain and malaise x 3 days, the patient had gone to obtain her COVID-19 vaccine 5 days ago and was exposed to people who had COVID, she started having symptoms 3 days ago. Given her ongoing malaise, she came to the emergency room, she was found to have an O2 sat of 90% but decided to 80%, she received do meds and supplemental O2.? She was tachypneic, tachycardic, using accessory muscles and having work of breathing therefore they decided to place the patient on BiPAP as her O2 sat did not improve with nasal cannula. Her workup reveals a white count of 13.2, hemoglobin 12.9, hematocrit 36.2, platelets 273, venous pH 7.26, pCO2 30, PO2 76, HC03 14, sodium 126, potassium 4.0, chloride 95, carbon dioxide 19, anion gap 16, BUN 11, creatinine 0.59, random glucose 200, initial lactic acid 2.4 went down to 1.4, total bilirubin 1.2, HCT 37, ALT 31, troponin 27.7, proBNP 2196.? COVID-19 positive otherwise influenza panel negative.? Chest x-ray showed bilateral lung consolidations likely pneumonia.? Possible bilateral pleural effusions. In the emergency room, the patient did not get IV fluids, they thought it was related to fluid overload instead the patient did receive Lasix, dual antibiotics, steroids, nitro paste.? Given the concern of deterioration, the patient will be admitted to the ICU for further care. <YAHIR Delcid - Last Filed: 12/23/24 21:00> Review of Systems 2 Review of Systems: Yes Unobtainable due to mental condition (on bipap) < YAHIR Delcid Last Filed: 12/23/24 21:00> [facility]LY [facility] Past Medical History Medical History: Medical History Wears hearing aid in both ears COVID-19 vaccine series completed Hx of cerebral infarction Dupuytren contracture Hypercholesteremia Hypertension <YAHIR Delcid - Last Filed: 12/23/24 21:00> Family History Family History: Family History Other Mental health disorder Substance abuse <YAHIR Delcid - Last Filed: 12/23/24 21:00> Surgical History Surgical History: Surgical History Hx of squamous cell carcinoma excision Hx of tonsillectomy Hx of hand surgery H/O colonoscopy (~2016) <YAHIR Delcid - Last Filed: 12/23/24 21:00> Social History Social History: Social History Household Members: None Housing: House Are you a primary pet care assistant to a significant other at home: No Do you presently have visiting nurse or other home services: No Patient Tobacco Use Status: Never used Tobacco Smoked in Last 30 Days: No e-Cigarette/Vaping Use: Never Used Second Hand Smoke Exposure: No Use of substances other than those prescribed or required for medical reasons: No Currently Displaying Signs/Symptoms of Drug Intoxication Withdrawal: No Have you been hit, kicked, punched, or otherwise hurt by someone within the past year? If so, by whom?: No Advance Directives: No Advance Directives Information Provided: Yes Recently lost weight without trying: No Nutrition Risks: No Nutritional Risk Patient : No service: No Current occupational status: retired Current occupational exposures/hazards: No Cognitive needs: No Hearing needs: Yes Vision needs: No <YAHIR Delcid - Last Filed: 12/23/24 21:00> Meds Allergies/Adverse reactions: Allergies Allergy/AdvReac Type Severity Reaction Status Date / Time Penicillins (PCN) Allergy Mild RASH Verified 12/22/24 23:48 pravastatin AdvReac Intermediate body aches Verified 12/22/24 23:48 <YAHIR Delcid - Last Filed: 12/23/24 21:00> Active Medications: Current Medications Ceftriaxone Sodium (Ceftriaxone Sodium 1 Gm Vial) 1 gm IVPUSH Q24H LIZABETH Dextrose (Dextrose 50 % 25 Gm/50 Ml Syringe) 25 gm IVPUSH Q15M PRN; Protocol PRN Reason: per Hypoglycemia Standing Ord. Glucose (Glucose Gel 15 Gm Gel..Gram.) 15 gm PO Q15M PRN; Protocol PRN Reason: per Hypoglycemia Standing Ord. Hydromorphone HCl (Hydromorphone Hcl 1 Mg/Ml Syringe) 0.5 mg IVPUSH Q6H PRN; Protocol PRN Reason: distress Lactated Ringer's (Lr) 1,812 mls @ 1,812 mls/hr 30 ml/kg infuse over 1 hr (1812 ml) IV .Q1H ONE Stop: 12/23/24 04:01 Azithromycin 500 mg/ Sodium (Chloride) 250 mls @ 125 mls/hr IV Q24H [facility] Insulin Human Lispro (Insulin Lispro 100 Unit/Ml 3 Ml Vial) 0 unit SUBCUT Q6H LIZABETH; Protocol Pantoprazole Sodium (Pantoprazole Sodium 40 Mg/10 Ml Vial) 40 mg IVPUSH DAILY@0630 LIZABETH <YAHIR Delcid - Last Filed: 12/23/24 21:00> Home medications: Home Medications ?Medication ?Instructions ?Recorded ?Confirmed ?Last Taken ?Type cholecalciferol (vitamin D3) 10 10 mcg PO DAILY 12/23/24 12/22/24 History mcg (400 unit) capsule aspirin 81 mg tablet 81 mg PO DAILY 12/23/24 0912/22/24 History <YAHIR Delcid - Last Filed: 12/23/24 21:00> Physical Exam 2 Vital Signs: Vital Signs: Last Vital Signs Temp 97.8 F 12/23/24 00:20 Pulse 83 12/23/24 03:01 Resp 12 12/23/24 03:01 BP 116/56 L 12/23/24 03:01 Pulse Ox 100 12/23/24 03:01 O2 Del Method BiPAP 12/23/24 03:01 Oxygen Flow Rate 6 12/22/24 23:45 BMI result Body Mass Index 24.4 <YAHIR Delcid - Last Filed: 12/23/24 21:00> Initial sepsis exam done at 03:00 General:? Alert oriented , unable to determine orientation, on BiPAP, using accessory muscles. Skin:? Thin, Intact, no lesions, edema, erythema, clubbing or cyanosis.? No ulcers. HEENT:? Head is normocephalic, atraumatic, pupils equal. Buccal mucosa is dry. Cardiac:? Clear S1-S2, no murmurs rubs or gallops. Pulmonary:? Diminished lung sounds bilaterally, bilateral rhonchi at the bases, no crackles. Abdomen:? Protuberant, positive bowel sounds in all 4 quadrants.? Soft, nontender, no rebound or guarding.? Musculoskeletal:? Moving all 4 extremities upon request a major joints, there is no crepitus or tenderness.? The strength is 5/5 bilaterally and throughout all 4 extremities.? There is no leg edema , no calf tenderness , no leg asymmetry.? Gait not assessed at this point. Neurologic:? As above.? No focal deficits noted. Vascular:? 2+ pulses upper and lower extremities distally.? Less than 2nd capillary refill of fingers and toes bilaterally upper and lower extremities <YAHIR Delcid - Last Filed: 12/23/24 21:00> Results Labs CBC and Chem 7: 12/23/24 08:31 12/23/24 08:31 <YAHIR Delcid - Last Filed: 12/23/24 21:00> Labs: Laboratory Results - last 24 hr 12/22/24 12/22/24 12/23/24 23:34 23:46 00:45 MCV 89.8 MCH 32.0 MCHC 35.6 H RDW 13.0 Plt Count 273 MPV 10.4 Immature Gran % (Auto) 0.5 H Neut % (Auto) 83.2 H Lymph % (Auto) 7.0 L [place] % (Auto) 8.2 Eos % (Auto) 0.8 Baso % (Auto) 0.3 Lymph # (Auto) 0.9 L [place] # (Auto) 1.1 Eos # (Auto) 0.1 Baso # (Auto) 0.0 Abs Immat Gran (auto) 0.06 H Absolute Neuts (auto) 11.0 H Absolute Nucleated RBC 0.000 Nucleated RBC % (auto) 0.0 VBG pH 7.26 L VBG pCO2 30 VBG pO2 76 VBG HCO3 14 L VBG O2 Saturation 91.0 VBG Base Excess -11.3 Anion Gap 16 Estim Creat Clear Calc 66.1 Estimated GFR > 60 Random Glucose 200 H Lactic Acid 2.4 H* Lactic Acid F/U @ 2Hr Calcium 8.5 D Total Bilirubin 1.2 H AST 37 H ALT 31 Alkaline Phosphatase 94 Troponin I High Sens 26.1 H D 27.7 H NT-Pro-B Natriuret Pep 2196.8 H Total Protein 7.2 Albumin 4.4 COVID-19 (KRYSTLE) Positive A COVID-19 Clin Com See Note Influenza Type A (VEDA) Negative Influenza Type B (VEDA) Negative Influenza A & B Note See Note 12/23/24 02:06 MCV MCH MCHC RDW Plt Count MPV Immature Gran % (Auto) Neut % (Auto) Lymph % (Auto) [place] % (Auto) Eos % (Auto) Baso % (Auto) Lymph # (Auto) [place] # (Auto) Eos # (Auto) Baso # (Auto) Abs Immat Gran (auto) Absolute Neuts (auto) Absolute Nucleated RBC Nucleated RBC % (auto) VBG pH VBG pCO2 VBG pO2 VBG HCO3 VBG O2 Saturation VBG Base Excess Anion Gap Estim Creat Clear Calc Estimated GFR Random Glucose Lactic Acid Lactic Acid F/U @ 2Hr 1.4 Calcium Total Bilirubin AST ALT Alkaline Phosphatase Troponin I High Sens NT-Pro-B Natriuret Pep Total Protein Albumin COVID-19 (KRYSTLE) COVID-19 Clin Com Influenza Type A (VEDA) Influenza Type B (VEDA) Influenza A & B Note <YAHIR Delcid - Last Filed: 12/23/24 21:00> Assessment and Plan (1) Acute hypoxic respiratory failure: Status: Acute <YAHIR Delcid - Last Filed: 12/23/24 21:00> ASSESSMENT : 1. Acute hypoxic respiratory failure 2. Acute sepsis likely due to COVID-19 infection rule out bacterial infection (no shock) 3. Viral pneumonia rule out bacterial pneumonia 4. Elevated BNP and abnormal troponin rule out PE do not suspect this is due to new CHF 5. Acute metabolic acidosis and lactic acidosis likely secondary to the above (improved) 6. Acute Hypoosmolar hypovolemic hyponatremia 7. Reactive hyperbilirubinemia 8. Age undetermined left bundle branch block with sinus tachycardia PLAN OF CARE: The patient will be admitted to the ICU, monitor vital signs, I's and o's, airborne and droplet precautions. I do not believe the patient is in CHF, rather I believe the patient is dehydrated and has underlying acute sepsis without shock, will benefit from IV fluids, 30 mL/kilos ordered. ?Given significant work of breathing and hypoxia the patient was placed on BiPAP, patient did complain of chest pain, I have requested a CT angiogram to be performed to rule out the possibility of pulmonary embolism causing right heart strain and elevated BNP and abnormal troponin.? We will start the patient on Rocephin and Zithromax. Obtain a stat ABG. Echo in am. trend trop. ISS. We will clarify when COVID infection started to see if the patient is a candidate for remdesivir treatment.? Start her on famotidine. GI PROPHYLAXIS:? Famotidine DVT PROPHYLAXIS:? Lovenox sub q Review of arterial gas shows pH of 7.4, pCO2 32, PO2 108, bicarb 23. Follow-up sepsis exam done at 05:05 The patient remains hemodynamically stable, no signs of shock, no deterioration. General:? Alert oriented , unable to determine orientation, on BiPAP, using accessory muscles. Skin:? Unchanged Cardiac:? Clear S1-S2, no murmurs rubs or gallops. Pulmonary:? Diminished lung sounds bilaterally, bilateral rhonchi at the bases, no crackles. Neurologic:? As above.? No focal deficits noted. Vascular:? 2+ pulses upper and lower extremities distally.? Less than 2nd capillary refill of fingers and toes bilaterally upper and lower extremities Patient received 1200 cc IVF thern dc as pt c/o SOB and CP due to concern for CHF IVF stopped, she was tried on NC but placed back on BiPAP CTA no PE, RL PNA and bilate pleural efussions. Pharmacy aware to start Remdesivir. This patient counter and care had a high probability of a clinically significant, sudden, or life threatening deterioration of this patient's condition which required my full and direct attention, intervention and personal management. Critical care time used for critical evaluation of this patient, diagnosis, treatment and coordination of care, review her records and documentation TOTAL CRITICAL CARE TIME? 90 MIN . discussion and coordination with consultants, completely separate from any procedures performed. Patient's care was discussed in detail with Dr. Burgos who is aware of all the above as well as the plan of care for this patient. <YAHIR Delcid - Last Filed: 12/23/24 21:00> ASSESSMENT : 1. Acute hypoxic respiratory failure 2. Acute sepsis likely due to COVID-19 infection rule out bacterial infection (no shock) 3. Viral pneumonia rule out bacterial pneumonia 4. Elevated BNP and abnormal troponin rule out PE do not suspect this is due to new CHF 5. Acute metabolic acidosis and lactic acidosis likely secondary to the above (improved) 6. Acute Hypoosmolar hypovolemic hyponatremia 7. Reactive hyperbilirubinemia 8. Age undetermined left bundle branch block with sinus tachycardia PLAN OF CARE: The patient will be admitted to the ICU, monitor vital signs, I's and o's, airborne and droplet precautions. I do not believe the patient is in CHF, rather I believe the patient is dehydrated and has underlying acute sepsis without shock, will benefit from IV fluids, 30 mL/kilos ordered. ?Given significant work of breathing and hypoxia the patient was placed on BiPAP, patient did complain of chest pain, I have requested a CT angiogram to be performed to rule out the possibility of pulmonary embolism causing right heart strain and elevated BNP and abnormal troponin.? We will start the patient on Rocephin and Zithromax. Obtain a stat ABG. Echo in am. trend trop. ISS. We will clarify when COVID infection started to see if the patient is a candidate for remdesivir treatment.? Start her on famotidine. GI PROPHYLAXIS:? Famotidine DVT PROPHYLAXIS:? Lovenox sub q Review of arterial gas shows pH of 7.4, pCO2 32, PO2 108, bicarb 23. Follow-up sepsis exam done at 05:05 The patient remains hemodynamically stable, no signs of shock, no deterioration. General:? Alert oriented , unable to determine orientation, on BiPAP, using accessory muscles. Skin:? Unchanged Cardiac:? Clear S1-S2, no murmurs rubs or gallops. Pulmonary:? Diminished lung sounds bilaterally, bilateral rhonchi at the bases, no crackles. Neurologic:? As above.? No focal deficits noted. Vascular:? 2+ pulses upper and lower extremities distally.? Less than 2nd capillary refill of fingers and toes bilaterally upper and lower extremities Patient received 1200 cc IVF thern dc as pt c/o SOB and CP due to concern for CHF IVF stopped, she was tried on NC but placed back on BiPAP CTA no PE, RL PNA and bilate pleural efussions. Pharmacy aware to start Remdesivir. Update: Patient's respiratory status is slowly improving, downgraded from BiPAP to CPAP. We will give her Lasix 60 mg b.i.d., we will switch to nasal cannula oxygen as tolerated and we will start her on a regular diet. We will continue to monitor her respiratory status This patient counter and care had a high probability of a clinically significant, sudden, or life threatening deterioration of this patient's condition which required my full and direct attention, intervention and personal management. Critical care time used for critical evaluation of this patient, diagnosis, treatment and coordination of care, review her records and documentation TOTAL CRITICAL CARE TIME? 60 MIN . discussion and coordination with consultants, completely separate from any procedures performed. Patient's care was discussed in detail with Dr. Burgos who is aware of all the above as well as the plan of care for this patient. <Hollis Burgos MD - Last Filed: 12/23/24 11:29> Total time managing care of this patient today: 90 minutes. <YAHIR Delcid - Last Filed: 12/23/24 21:00>
--- NOTE | 2024-12-23 03:24 | PC.NURSE ---
bipap removed, placed on 4L NC at this time. tolerating well. 94%
--- NOTE | 2024-12-23 03:29 | PC.NURSE ---
report given to MASS COMMUNICATIONS INSTRUCTOR
[2024-12-23 03:35] LABS: ABG HCO3 23 mmol/L (22-26); ABG O2 % Saturation 100.0 %
[2024-12-23] MEDS: iohexoL 350 MG/ML 100 ML INFUS..BTL 65 ML IV (03:52)
[2024-12-23] MEDS: LACTATED RINGERS 1812 ML IV (04:10)
[2024-12-23 04:12] LABS: ABG Refer to POC result
[2024-12-23 04:40] LABS: Glucose, Whole Blood 175 mg/dL (60-115)
[2024-12-23 06:20] LABS: Troponin-I High Sensitivity 35.6 ng/L (<3.5-17.0)
--- NOTE | 2024-12-23 06:37 | PC.ADMIT ---
Pt admitted to ICU from ED at approx 0400. On initial assessment- pt A&Ox4, anxious but cooperative, BLUE, [place]. NSR/ST with BBB on tele, HR 90-100s, BP WNL. +1 BLE edema. Placed back on BiPAP from 4L NC for increasing SOB and chest heaviness. IVF discontinued per MAY d/t dyspnea and new coarse crackles bilaterally. PRN Dilaudid administered with good effect per pt report. NPO while on NIV. No BM. Purewick in place. Skin overall intact. Pt educated on and verbalized understanding of plan of care. Bed locked in lowest position, alarm on, call muro within reach. See EMR/flowsheet for additional details.
--- NOTE | 2024-12-23 07:00 | CA_ITS ---
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 The calculated ejection fraction is 15% by biplane method. Findings Procedure Information Contrast agent, definity, is being given per protocol without apparent complications. Left Ventricle Normal left ventricular cavity size. There is normal left ventricular wall thickness. The left ventricular systolic function is severely decreased. The calculated ejection fraction is 15% by biplane method. There is severe global hypokinesis. There is paradoxical septal motion consistent with a left bundle branch block. Probably abnormal diastolic function, but cannot quantitate. Right Ventricle Normal right ventricular cavity size and systolic function. Atria Both atria are normal in size. Aortic Valve The aortic valve structure and function is likely normal. There is no aortic valve stenosis. There is no aortic valve regurgitation. Mitral Valve The mitral valve appears normal. There is mild mitral valve regurgitation. There is no mitral valve stenosis. Pulmonic Valve The pulmonic valve is likely normal. Tricuspid Valve There is trace tricuspid valve regurgitation. Borderline RVSP. Great Vessels The asc aorta is normal in size. Venous The inferior vena cava is normal in size and collapses greater than 50% with inspiration. Pericardium/Pleural There is no evidence of pericardial effusion. There is a left sided pleural effusion. Prior Study Comparison No prior study available for comparison. Measurements 2D Linear Measurements IVSd: 0.91 0.6-0.9/0.6-1.0 cm LVIDd: 4.61 3.9-5.3/4.2-5.9 cm LVIDd Index: 2.85 2.4-3.2/2.2-3.1 cm/m2 LVIDs: 4.09 2.0-3.6 cm LVPWd: 1.01 0.7-1.1 cm Ao Root: 2.80 2.1-3.5 cm LA Diam: 3.80 2.7-3.8/3.0-4.0 cm LAIDs Index: 2.35 1.5-2.3 cm/m2 LV Mass: 187.03 67-162/88-224 g LV Mass Index: 115.45 43-95/49-115 g/m2 LVOT Diam: 2.00 3.0+(-)1.3 cm 2D Systolic Function EF 4C: 16.60 >55% EF 2C: 18.70 >55% EF BiP: 15.40 >55% Mitral Valve MV Pk E: 1.25 MV Decel Time: 92.00 E'Lateral: 7.18 E'Medial: 9.79 E/E' Med: 12.80 E/E' Lat: 17.40 PHT: 27.00 MVA PHT: 8.15 Decel [place]: 13.64 Aortic Valve AoV Pk Evgeny: 0.98 AoV Mn Evgeny: 0.68 AoV VTI: 0.19 AoV Pk Grad: 4.00 Aov Mn Grad: 2.00 SHIRIN Cont.VTI: 2.43 LVOT LVOT Pk Evgeny: 0.68 LVOT Mn Evgeny: 0.42 LVOT VTI: 0.15 LVOT Pk Grad: 2.00 LVOT Mn Grad: 1.00 LVOT Diam: 2.00 LVOT Area: 3.14 Diastolic Function MV Pk E: 1.25 E'Medial: 9.79 E/E' Med: 12.80 E' Laterial: 7.18 E/E' Lat: 17.40 Right Ventricle TAPSE (mm): 21.00 TVS' Evgeny: 12.00 Tricuspid Valve TR Pk Evgeny: 3.02 TR Pk Grad: 36.00 RA Press: 3.00 RVSP: 39.00 Great Vessels Aorta Ao Root-2D: 2.80 2.0-3.7 cm Ao Asc: 2.80 2.1-3.4 cm Pulmonary Valve PV Pk Evgeny: 0.68 Peak PV Grad: 2.00 Updated in Other Vendor System with Status of Final Ignacio Limon MD electronically signed on 12/23/2024 5:08:02 PM with status of Final
[2024-12-23] MEDS: 0.9 % Sodium Chloride Flush 3 ML SYRINGE IVFLUSH ×3 (08:36→22:33)
[2024-12-23] MEDS: Remdesivir 200 MG in 0.9 % Sodium Chloride 210 ML 105 MG IV (08:37)
[2024-12-23 08:42] LABS: VBG HCO3 19 mmol/L (22-26); VBG O2 % Saturation 100.0 %
[2024-12-23 08:43] LABS: Venous Blood Gas Refer to POC result
[2024-12-23 08:45] LABS: Hematocrit 32.4 % (37.0-47.0); Hemoglobin 11.7 g/dl (12.0-16.0); Imm Gran Abs Auto 0.03 X10*3/uL (0.00-0.03); Imm Gran Pct Auto 0.4 % (0.0-0.4); Lymphocytes Absolute Auto 0.3 X10*3/uL (1.2-4.9); MANUAL DIFF FLAG SCAN; Mean Corpuscular HGB Conc 36.1 g/dl (31.0-35.0); Mean Corpuscular Hemoglobin 32.0 pg (27.0-33.0); Mean Corpuscular Volume 88.5 fL (80.0-98.0); NRBC Abs Auto 0.000 X10*3/uL (0.0-0.012); NRBC Pct Auto 0.0 /100WBC (0.0-0.2); Platelet Count 223 X10*3/uL (160-400); Red Blood Count 3.66 X10*6/uL (4.20-5.50); SCAN SMEAR FLAG 1; White Blood Count 6.9 X10*3/uL (4.8-10.8)
[2024-12-23 08:54] LABS: Alanine Aminotransferase 26 U/L (0-31); Albumin Level 3.9 g/dL (3.5-5.0); Alkaline Phosphatase 84 U/L (39-117); Anion Gap 14 (12-20); Aspartate Amino Transferase 30 U/L (5-31); Blood Urea Nitrogen 10 mg/dL (9-16); Calcium 7.7 mg/dL (8.4-10.2); Carbon Dioxide 22 mmol/L (22-29); Chloride 94 mmol/L (96-108); Creatinine Clr Calc Pharmacy 66.9; Estimated Glomerular Filt Rate > 60; Magnesium 1.9 mg/dL (1.6-2.6); Potassium 3.8 mmol/L (3.3-5.1); Sodium 126 mmol/L (135-145); Total Protein 6.4 g/dL (6.5-8.0)
[2024-12-23] MEDS: Furosemide 100 MG/10 ML VIAL 60 MG IVPUSH ×2 (09:38→17:59)
--- NOTE | 2024-12-23 10:13 | PHA.MEDREC ---
Pharmacy Consult ? Medication Reconciliation Pharmacy has completed the medication reconciliation. Spoke to patient to confirm medication list. Last dose of medications was yesterday 12/22/24.
--- NOTE | 2024-12-23 11:33 | MHC.CM.PN ---
IMM DELIVERED CM MET WITH PT AT BEDSIDE IN ICU. PT IS CURRENTLY OFF BI-PAP AND ABLE TO PARTICIPATE IN ASSESSMENT. PT LIVES ALONE AND IS FUNCTIONALLY INDEPENDENT, +DRIVES. NO SERVICES OR DME. PT HAS A COPY OF HER HCP AT HOME, SON HAS A COPY WELL. PCP DR. BRUNER DP: HOME, NO SERVICES VS HOME WITH SERVICES? PT MAY BENEFIT FROM A P.T. EVAL BEFORE DC TO DETERMINE NEEDS. PT'S FAMILY WILL TRANSPORT HOME. CM WILL CONTINUE TO FOLLOW FOR ANY CHANGES TO DC PLAN/NEEDS.
[2024-12-23 14:10] LABS: Glucose, Whole Blood 257 mg/dL (60-115)
[2024-12-23 16:51] LABS: Glucose, Whole Blood 116 mg/dL (60-115)
--- NOTE | 2024-12-23 19:15 | PC.NURSE ---
Assumed care at 1500. Pt to be transferred to [facility]. Report given to Mary SAVAGE at approx 1745. Pt repositioned q2hr as tolerated. Fall & safety precautions in place. See MAR and assessments for further details.
[2024-12-24] VITALS (10 sets, daily range): BP systolic 112–134; BP diastolic 56–78; PULSE 58–112; RESP 17–18; TEMP 36.4–37; O2SAT 92–99; BMI 25.6
--- NOTE | 2024-12-24 | ECG_ITS ---
Test Reason : Chest pain Blood Pressure : */* mmHG Vent. Rate : 110 BPM Atrial Rate : 110 BPM P-R Int : 160 ms QRS Dur : 138 ms QT Int : 412 ms P-R-T Axes : 74 -45 79 degrees QTcB Int : 557 ms Sinus tachycardia with occasional Premature ventricular complexes Left axis deviation Left bundle branch block Abnormal ECG No significant changes when compared with the previous EKG of 12/22/2024 Referred By: Josselin Cai Electronically Signed By: WILSON ARAMBULA
[2024-12-24 00:19] LABS: Glucose, Whole Blood 176 mg/dL (60-115)
[2024-12-24] MEDS: traZODone HCL 25 MG HALFTAB 12.5 MG PO (00:24)
[2024-12-24 05:46] LABS: Glucose, Whole Blood 115 mg/dL (60-115)
--- NOTE | 2024-12-24 06:34 | PM.EVENT ---
Event Note Date of Service: 12/24/24 Event Note: 06:08 - patient started to complain of heavy chest pain 10/02 without radiations. BP 122/78 and oxygen saturation 92% on 2 L/min O2 via nasal cannula. ECG and nitro sublingual and troponin ordered. 06:25 - ECG showed sinus tachycardia with occasional PVCs and left bundle branch block. Chest pain resolved after receiving one nitro 0.5 mg sublingual. Last BP 160/58. Troponins x2 ordered and pending. Time Spent With Patient Time: Total time managing care of this patient today ____ minutes.
[2024-12-24 07:09] LABS: MANUAL DIFF FLAG NO
[2024-12-24 07:15] LABS: Hematocrit 33.2 % (37.0-47.0); Hemoglobin 12.0 g/dl (12.0-16.0); Imm Gran Abs Auto 0.04 X10*3/uL (0.00-0.03); Imm Gran Pct Auto 0.3 % (0.0-0.4); Lymphocytes Absolute Auto 0.8 X10*3/uL (1.2-4.9); Mean Corpuscular HGB Conc 36.1 g/dl (31.0-35.0); Mean Corpuscular Hemoglobin 31.9 pg (27.0-33.0); Mean Corpuscular Volume 88.3 fL (80.0-98.0); NRBC Abs Auto 0.000 X10*3/uL (0.0-0.012); NRBC Pct Auto 0.0 /100WBC (0.0-0.2); Platelet Count 225 X10*3/uL (160-400); Red Blood Count 3.76 X10*6/uL (4.20-5.50); White Blood Count 12.1 X10*3/uL (4.8-10.8)
[2024-12-24 07:34] LABS: Venous Blood Gas Refer to POC result
[2024-12-24 07:38] LABS: Troponin-I High Sensitivity 43.3 ng/L (<3.5-17.0)
[2024-12-24 07:38] LABS: VBG HCO3 27 mmol/L (22-26); VBG O2 % Saturation 97.0 %
[2024-12-24 07:39] LABS: Glucose, Whole Blood 126 mg/dL (60-115)
[2024-12-24 07:52] LABS: Alanine Aminotransferase 27 U/L (0-31); Albumin Level 3.7 g/dL (3.5-5.0); Alkaline Phosphatase 77 U/L (39-117); Anion Gap 16 (12-20); Aspartate Amino Transferase 39 U/L (5-31); Blood Urea Nitrogen 15 mg/dL (9-16); Calcium 7.8 mg/dL (8.4-10.2); Carbon Dioxide 25 mmol/L (22-29); Chloride 94 mmol/L (96-108); Creatinine Clr Calc Pharmacy 64.3; Estimated Glomerular Filt Rate > 60; Magnesium 2.0 mg/dL (1.6-2.6); Potassium 2.9 mmol/L (3.3-5.1); Sodium 132 mmol/L (135-145); Total Protein 6.4 g/dL (6.5-8.0)
--- NOTE | 2024-12-24 08:35 | HO.PM.IMPN ---
Subjective Subjective Date of Service: 12/24/24 Interval History: reports sym improvement Reports urge to defecate and needing meds to help with constipation Was made aware of new diagnosis of HFrEF (15%) Initiated GDMT Review of Systems Review of Systems: Yes all other systems are reviewed and are negative Physical Exam Exam: Exam: General: AOx3, no acute distress Resp: CTA bilaterally CVS: S1, S2, RRR GI: +BS, NT, no distention Psych: Anxious affect Vital Signs: Vital Signs: Last Vital Signs Temp 98.0 F 12/24/24 07:26 Pulse 100 12/24/24 07:26 Resp 17 12/24/24 07:26 BP 134/74 12/24/24 07:26 Pulse Ox 94 12/24/24 07:26 O2 Del Method Nasal Cannula 12/24/24 07:26 O2 Flow Rate 2 12/24/24 07:26 FiO2 35 12/23/24 10:00 Oxygen Flow Rate 6 12/22/24 23:45 BMI result Body Mass Index 25.6 Objective Data Active Medications Ceftriaxone Sodium (Ceftriaxone Sodium 1 Gm Vial) 1 gm IVPUSH Q24H [facility] Last Admin: 12/23/24 22:33 Dose: 1 gm Documented By: J CARLOS Dextrose (Dextrose 50 % 25 Gm/50 Ml Syringe) 25 gm IVPUSH Q15M PRN; Protocol PRN Reason: per Hypoglycemia Standing Ord. Enoxaparin Sodium (Enoxaparin Sodium 40 Mg/0.4 Ml Syringe) 40 mg SUBCUT Q24H [facility] Last Admin: 12/23/24 08:36 Dose: 40 mg Documented By: REJI Famotidine (Famotidine/Pf 20 Mg/2 Ml Vial) 20 mg IVPUSH BID [facility] Last Admin: 12/23/24 22:33 Dose: 20 mg Documented By: J CARLOS Furosemide (Furosemide 100 Mg/10 Ml Vial) 60 mg IVPUSH BID@0900,1800 [facility]; Protocol Last Admin: 12/23/24 17:59 Dose: 60 mg Documented By: TRICIA Glucose (Glucose Gel 15 Gm Gel..Gram.) 15 gm PO Q15M PRN; Protocol PRN Reason: per Hypoglycemia Standing Ord. Hydromorphone HCl (Hydromorphone Hcl 1 Mg/Ml Syringe) 0.5 mg IVPUSH Q6H PRN; Protocol PRN Reason: distress Last Admin: 12/23/24 05:43 Dose: 0.5 mg Documented By: LINSEY Azithromycin 500 mg/ Sodium (Chloride) 250 mls @ 125 mls/hr IV Q24H [facility] Last Infusion: 12/24/24 05:49 Dose: Infused Documented By: J CARLOS Remdesivir 100 mg/ Sodium (Chloride) 230 mls @ 115 mls/hr IV Q24H [facility] Stop: 12/27/24 09:59 Insulin Human Lispro (Insulin Lispro 100 Unit/Ml 3 Ml Vial) 0 unit SUBCUT Q6H [facility]; Protocol Last Admin: 12/24/24 05:49 Dose: Not Given Documented By: J CARLOS Non-Admin Reason: No Insulin Coverage Nitroglycerin (Nitroglycerin 0.4 Mg Tab.Subl) 0.4 mg SUBLINGUAL Q5MX3 PRN PRN Reason: Chest Pain Last Admin: 12/24/24 06:15 Dose: 0.4 mg Documented By: J CARLOS Sodium Chloride (0.9 % Sodium Chloride Flush 3 Ml Syringe) [facility] Last Admin: 12/23/24 22:33 Dose: 3 ml Documented By: J CARLOS Trazodone HCl (Trazodone Hcl 25 Mg Halftab) 12.5 mg PO BEDTIME PRN PRN Reason: Insomnia Last Admin: 12/24/24 00:24 Dose: 12.5 mg Documented By: J CARLOS Labs 12/24/24 07:00 12/24/24 07:01 Labs: Laboratory Results - last 24 hr 12/23/24 12/23/24 12/23/24 08:31 08:38 14:02 MCV 88.5 MCH 32.0 MCHC 36.1 H RDW 12.8 Plt Count 223 MPV 10.3 Immature Gran % (Auto) 0.4 Neut % (Auto) 93.8 H Lymph % (Auto) 3.9 L [place] % (Auto) 1.9 L Eos % (Auto) 0.0 Baso % (Auto) 0.0 Lymph # (Auto) 0.3 L [place] # (Auto) 0.1 Eos # (Auto) 0.0 Baso # (Auto) 0.0 Abs Immat Gran (auto) 0.03 Absolute Neuts (auto) 6.4 Absolute Nucleated RBC 0.000 Nucleated RBC % (auto) 0.0 Smear Tech's Comments VERIFIED VBG pH 7.49 H VBG pCO2 25 VBG pO2 93 VBG HCO3 19 L VBG O2 Saturation 100.0 VBG Base Excess -1.9 Anion Gap 14 Estim Creat Clear Calc 66.9 Estimated GFR > 60 POC Glucose 257 H Random Glucose 149 H Calcium 7.7 L D Phosphorus 2.8 Magnesium 1.9 Total Bilirubin 0.7 AST 30 ALT 26 Alkaline Phosphatase 84 Troponin I High Sens Total Protein 6.4 L Albumin 3.9 12/23/24 12/24/24 12/24/24 16:47 00:14 05:42 MCV MCH MCHC RDW Plt Count MPV Immature Gran % (Auto) Neut % (Auto) Lymph % (Auto) [place] % (Auto) Eos % (Auto) Baso % (Auto) Lymph # (Auto) [place] # (Auto) Eos # (Auto) Baso # (Auto) Abs Immat Gran (auto) Absolute Neuts (auto) Absolute Nucleated RBC Nucleated RBC % (auto) Smear Tech's Comments VBG pH VBG pCO2 VBG pO2 VBG HCO3 VBG O2 Saturation VBG Base Excess Anion Gap Estim Creat Clear Calc Estimated GFR POC Glucose 116 H 176 H 115 Random Glucose Calcium Phosphorus Magnesium Total Bilirubin AST ALT Alkaline Phosphatase Troponin I High Sens Total Protein Albumin 12/24/24 12/24/24 12/24/24 07:00 07:01 07:07 MCV 88.3 MCH 31.9 MCHC 36.1 H RDW 13.0 Plt Count 225 MPV 10.5 Immature Gran % (Auto) 0.3 Neut % (Auto) 84.4 H Lymph % (Auto) 6.3 L [place] % (Auto) 8.8 Eos % (Auto) 0.0 Baso % (Auto) 0.2 Lymph # (Auto) 0.8 L [place] # (Auto) 1.1 Eos # (Auto) 0.0 Baso # (Auto) 0.0 Abs Immat Gran (auto) 0.04 H Absolute Neuts (auto) 10.2 H Absolute Nucleated RBC 0.000 Nucleated RBC % (auto) 0.0 Smear Tech's Comments VBG pH 7.63 H* VBG pCO2 25 VBG pO2 79 VBG HCO3 27 H VBG O2 Saturation 97.0 VBG Base Excess 7.5 Anion Gap 16 Estim Creat Clear Calc 64.3 Estimated GFR > 60 POC Glucose Random Glucose 129 H Calcium 7.8 L Phosphorus 2.8 Magnesium 2.0 Total Bilirubin 0.8 AST 39 H ALT 27 Alkaline Phosphatase 77 Troponin I High Sens 43.3 H Total Protein 6.4 L Albumin 3.7 12/24/24 07:34 MCV MCH MCHC RDW Plt Count MPV Immature Gran % (Auto) Neut % (Auto) Lymph % (Auto) [place] % (Auto) Eos % (Auto) Baso % (Auto) Lymph # (Auto) [place] # (Auto) Eos # (Auto) Baso # (Auto) Abs Immat Gran (auto) Absolute Neuts (auto) Absolute Nucleated RBC Nucleated RBC % (auto) Smear Tech's Comments VBG pH VBG pCO2 VBG pO2 VBG HCO3 VBG O2 Saturation VBG Base Excess Anion Gap Estim Creat Clear Calc Estimated GFR POC Glucose 126 H Random Glucose Calcium Phosphorus Magnesium Total Bilirubin AST ALT Alkaline Phosphatase Troponin I High Sens Total Protein Albumin Microbiology Microbiology Results: Microbiology 12/22/24 23:42 Blood Culture - Preliminary Blood - Venous No growth after 24 hours. 12/22/24 23:34 Blood Culture - Preliminary Blood - Venous No growth after 24 hours. Assessment and Plan (1) COVID: Status: Acute Plan Pt is a 79 yo F with PMH notable for HTN, HLD, prior CVA who was admitted to the ICU briefly not necessitating intubation or pressor support on 12/23/24 2/2 AHRF 2/2 COVID pna with possible secondary bacterial pna, with newly diagnosed HFrEF (EF 15%) of unclear etiology, was transferred to floors on 12/24/24 on 2L O2 AHRF with hypoxia (down to low 80%), tachypnea COVID pna with possible secondary bacterial pna She is on Ceftriaxone, azithro and Vanco for COVID pna Remdesivir 2/5 days Cont suppport She was briefly on Bipap in ICU, currently saturating >92% on 2L NC Newly diagnosed HFrEF (LVEF 15%) Type II Troponenemia - 2/2 ongoing medical conditions HTN - hold home meds 2/2 sepsis HLD Will need OP Cardiac cath remains CP free since 1 time POA , but given new diagnosis and workup for CP POA revealed HFrEF , hence GDMT with Mónicao, Coreg and Farciga initiated from 12/24/24 cardiomyopathy, most likely left bundle-branch related - will need OP Cath once medically optimized Cardiac rehab PT/OT Lasix IV for diuresis Electrolytes to be checked daily and repleted to goal Tele Contipation / deconditioning Will need bowel meds PT/OT DVT px - lovenox daily FULL code per pt's wishes This note is constructed using voice recognition software. While every effort has been made to ensure accuracy, inventory planner errors may have been included. Pt needs ongoing rx for severe sepsis with MOF (lungs and heart) and needs further medical optimization, STR once optimized for DC Quality Stroke Does the patient have a stroke diagnosis?: No VTE Prior VTE?: No VTE Risk Level:: Medical - moderate - high VTE Device Contraindication: N/A - Device Ordered VTE Drug Contraindication: N/A - Med Ordered
[2024-12-24] MEDS: Furosemide 100 MG/10 ML VIAL 60 MG IVPUSH ×2 (09:04→13:29)
[2024-12-24] MEDS: Potassium Chloride Packet 20 MEQ PACKET 40 MEQ PO (09:18)
--- NOTE | 2024-12-24 09:23 | PM.CNCAR ---
History of Present Illness History of Present Illness Date of Service: 12/24/24 Chief complaint: Acute hypoxic resp failure, COVID Narrative: This is a cardiology consultation regarding question of congestive heart failure and abnormal echocardiogram. She had an echocardiogram and that showed severe LV dysfunction. Patient is not aware of any cardiac issues in the past. Denies any coronary disease myocardial infarction or cardiomyopathy extra. Seems that she was admitted for shortness of breath, chest pain and malaise. She is admitted as acute hypoxic respiratory failure/COVID-19 infection. However, not thought to be having any active heart failure upon presentation. She also had a left bundle-branch block on the EKG. Currently, some nonspecific complaints and she states she does not feel good overall. She denies any history of exertional angina in the past but she has had chest pains since arrival. Review of Systems Review of Systems: Yes all other systems are reviewed and are negative Constitutional: Constitutional: Reports as per HPI and Reports no additional constitutional complaints Eyes: Eyes: Reports as per HPI and Denies no additional eye complaints ENT: Denies system reviewed and no additional complaints, except as documented and Reports as per HPI Cardiovascular: Cardiovascular: Reports as per HPI, Reports no additional cardiovascular complaints, Denies acrocyanosis, Denies cool extremities, Reports chest pain, Denies leg edema, Denies lightheadedness, Denies palpitations and Reports dyspnea Respiratory: Respiratory: Reports as per HPI, Denies no additional respiratory complaints and Reports dyspnea Gastrointestinal: Gastrointestinal: Reports as per HPI and Denies no additional gastrointestinal complaints Genitourinary: Genitourinary: Reports as per HPI Musculoskeletal: Musculoskeletal: Reports no additional musculoskeletal complaints and Reports as per HPI Integumentary/Breasts: Skin/Breast: Reports system reviewed and no additional complaints, except as docu Neurologic: Reports system reviewed and no additional complaints, except as documented and Reports as per HPI Psychiatric: Psychiatric: Reports no additional psychiatric complaints and Reports as per HPI Endocrine: Endocrine: Reports no additional endocrine complaints, Reports as per HPI and Denies palpitations Hematologic/Lymphatic: Hematologic/Lymphatic: Reports no additional hematologic/lymphatic complaints and Reports as per HPI Allergic/Immunologic: Allergic/Immunologic: Reports no additional allergic/immunologic complaints and Reports as per HPI COUNT INCLUDES [facility] Past Medical History Medical History Wears hearing aid in both ears COVID-19 vaccine series completed Hx of cerebral infarction Dupuytren contracture Hypercholesteremia Hypertension Family History Family History Other Mental health disorder Substance abuse Surgical History Surgical History Hx of squamous cell carcinoma excision Hx of tonsillectomy Hx of hand surgery H/O colonoscopy (~2017) Social History Social History Household Members: None Housing: House Are you a primary cattle care worker to a significant other at home: No Do you presently have visiting nurse or other home services: No Patient Tobacco Use Status: Never used Tobacco Smoked in Last 30 Days: No e-Cigarette/Vaping Use: Never Used Second Hand Smoke Exposure: No Use of substances other than those prescribed or required for medical reasons: No Currently Displaying Signs/Symptoms of Drug Intoxication Withdrawal: No Have you been hit, kicked, punched, or otherwise hurt by someone within the past year? If so, by whom?: No Advance Directives: No Advance Directives Information Provided: Yes Recently lost weight without trying: No Nutrition Risks: No Nutritional Risk Patient : No service: No Current occupational status: retired Current occupational exposures/hazards: No Cognitive needs: No Hearing needs: Yes Vision needs: No Meds Allergies Allergy/AdvReac Type Severity Reaction Status Date / Time Penicillins (PCN) Allergy Mild RASH Verified 12/22/24 23:48 pravastatin AdvReac Intermediate body aches Verified 12/22/24 23:48 Active Medications: Current Medications Ceftriaxone Sodium (Ceftriaxone Sodium 1 Gm Vial) 1 gm IVPUSH Q24H [facility] Last Admin: 12/23/24 22:33 Dose: 1 gm Dextrose (Dextrose 50 % 25 Gm/50 Ml Syringe) 25 gm IVPUSH Q15M PRN; Protocol PRN Reason: per Hypoglycemia Standing Ord. Enoxaparin Sodium (Enoxaparin Sodium 40 Mg/0.4 Ml Syringe) 40 mg SUBCUT Q24H [facility] Last Admin: 12/24/24 09:05 Dose: 40 mg Famotidine (Famotidine/Pf 20 Mg/2 Ml Vial) 20 mg IVPUSH BID [facility] Last Admin: 12/24/24 09:04 Dose: 20 mg Furosemide (Furosemide 100 Mg/10 Ml Vial) 60 mg IVPUSH BID@0900,1800 [facility]; Protocol Last Admin: 12/24/24 09:04 Dose: 60 mg Glucose (Glucose Gel 15 Gm Gel..Gram.) 15 gm PO Q15M PRN; Protocol PRN Reason: per Hypoglycemia Standing Ord. Hydromorphone HCl (Hydromorphone Hcl 1 Mg/Ml Syringe) 0.5 mg IVPUSH Q6H PRN; Protocol PRN Reason: distress Last Admin: 12/23/24 05:43 Dose: 0.5 mg Azithromycin 500 mg/ Sodium (Chloride) 250 mls @ 125 mls/hr IV Q24H [facility] Last Infusion: 12/24/24 05:49 Dose: Infused Remdesivir 100 mg/ Sodium (Chloride) 230 mls @ 115 mls/hr IV Q24H [facility] Stop: 12/27/24 09:59 Insulin Human Lispro (Insulin Lispro 100 Unit/Ml 3 Ml Vial) 0 unit SUBCUT Q6H [facility]; Protocol Last Admin: 12/24/24 05:49 Dose: Not Given Nitroglycerin (Nitroglycerin 0.4 Mg Tab.Subl) 0.4 mg SUBLINGUAL Q5MX3 PRN PRN Reason: Chest Pain Last Admin: 12/24/24 06:15 Dose: 0.4 mg Sodium Chloride (0.9 % Sodium Chloride Flush 3 Ml Syringe) 3 ml IVFLUSH QSHIFT [facility] Last Admin: 12/23/24 22:33 Dose: 3 ml Trazodone HCl (Trazodone Hcl 25 Mg Halftab) 12.5 mg PO BEDTIME PRN PRN Reason: Insomnia Last Admin: 12/24/24 00:24 Dose: 12.5 mg Home Medications ?Medication ?Instructions ?Recorded ?Confirmed ?Last Taken ?Type cholecalciferol (vitamin D3) 10 10 mcg PO DAILY 01/16/23 12/23/24 12/22/24 History mcg (400 unit) capsule aspirin 81 mg tablet 81 mg PO DAILY 12/23/24 12/23/24 12/22/24 History Physical Exam Vital Signs: Vital Signs: Last Vital Signs Temp 98.0 F 12/24/24 07:26 Pulse 100 12/24/24 07:26 Resp 17 12/24/24 07:26 BP 134/74 12/24/24 07:26 Pulse Ox 94 12/24/24 07:26 O2 Del Method Nasal Cannula 12/24/24 07:26 O2 Flow Rate 2 12/24/24 07:26 FiO2 35 12/23/24 10:00 Oxygen Flow Rate 6 12/22/24 23:45 BMI result Body Mass Index 25.6 Const: General: comfortable and no acute distress Orientation/consciousness: patient oriented x3 HEENT: Other: Unremarkable Head: Yes normal to inspection Neck: Neck: Yes normal visual inspection Chest: Chest palpation & inspection: normal inspection of the chest Resp: Auscultation: diminished lung sounds Cardio: Palpation: normal PMI Heart sounds: S1 normal heart sound present, S2 normal heart sound present, no gallops, no murmurs and no rubs GI: Palpation (GI): Soft to palpation Back/Spine/Pelvis: Other: unremarkable Skin: General skin exam: no rashes or lesions noted Neuro: General: patient oriented x3 Extrem: General: Yes normal to inspection Psych: Mental Status: mental status grossly normal Objective Labs and Meds 12/24/24 07:00 12/24/24 07:01 Lab results: Laboratory Results - last 24 hr 12/23/24 12/23/24 12/24/24 14:02 16:47 00:14 WBC RBC Hgb Hct MCV MCH MCHC RDW Plt Count MPV Immature Gran % (Auto) Neut % (Auto) Lymph % (Auto) [place] % (Auto) Eos % (Auto) Baso % (Auto) Lymph # (Auto) [place] # (Auto) Eos # (Auto) Baso # (Auto) Abs Immat Gran (auto) Absolute Neuts (auto) Absolute Nucleated RBC Nucleated RBC % (auto) VBG pH VBG pCO2 VBG pO2 VBG HCO3 VBG O2 Saturation VBG Base Excess Sodium Potassium Chloride Carbon Dioxide Anion Gap BUN Creatinine Estim Creat Clear Calc Estimated GFR POC Glucose 257 H 116 H 176 H Random Glucose Calcium Phosphorus Magnesium Total Bilirubin AST ALT Alkaline Phosphatase Troponin I High Sens Total Protein Albumin 12/24/24 12/24/24 12/24/24 05:42 07:00 07:01 WBC 12.1 H RBC 3.76 L Hgb 12.0 Hct 33.2 L MCV 88.3 MCH 31.9 MCHC 36.1 H RDW 13.0 Plt Count 225 MPV 10.5 Immature Gran % (Auto) 0.3 Neut % (Auto) 84.4 H Lymph % (Auto) 6.3 L [place] % (Auto) 8.8 Eos % (Auto) 0.0 Baso % (Auto) 0.2 Lymph # (Auto) 0.8 L [place] # (Auto) 1.1 Eos # (Auto) 0.0 Baso # (Auto) 0.0 Abs Immat Gran (auto) 0.04 H Absolute Neuts (auto) 10.2 H Absolute Nucleated RBC 0.000 Nucleated RBC % (auto) 0.0 VBG pH VBG pCO2 VBG pO2 VBG HCO3 VBG O2 Saturation VBG Base Excess Sodium 132 L Potassium 2.9 L* D Chloride 94 L Carbon Dioxide 25 Anion Gap 16 BUN 15 Creatinine 0.62 Estim Creat Clear Calc 64.3 Estimated GFR > 60 POC Glucose 115 Random Glucose 129 H Calcium 7.8 L Phosphorus 2.8 Magnesium 2.0 Total Bilirubin 0.8 AST 39 H ALT 27 Alkaline Phosphatase 77 Troponin I High Sens 43.3 H Total Protein 6.4 L Albumin 3.7 12/24/24 12/24/24 07:07 07:34 WBC RBC Hgb Hct MCV MCH MCHC RDW Plt Count MPV Immature Gran % (Auto) Neut % (Auto) Lymph % (Auto) [place] % (Auto) Eos % (Auto) Baso % (Auto) Lymph # (Auto) [place] # (Auto) Eos # (Auto) Baso # (Auto) Abs Immat Gran (auto) Absolute Neuts (auto) Absolute Nucleated RBC Nucleated RBC % (auto) VBG pH 7.63 H* VBG pCO2 25 VBG pO2 79 VBG HCO3 27 H VBG O2 Saturation 97.0 VBG Base Excess 7.5 Sodium Potassium Chloride Carbon Dioxide Anion Gap BUN Creatinine Estim Creat Clear Calc Estimated GFR POC Glucose 126 H Random Glucose Calcium Phosphorus Magnesium Total Bilirubin AST ALT Alkaline Phosphatase Troponin I High Sens Total Protein Albumin ECG Interpretation: EKG on arrival shows sinus rhythm and left bundle-branch block. PVC. In a prior EKG from August of 2023, left bundle-branch block noted. Assessment and Plan (1) Acute congestive heart failure: Status: Acute (2) COVID: Status: Acute Plan In the echocardiogram, LVEF is 15%. Low-grade troponin elevation. NT pro BNP 2196. COVID-19 positive. Overall, suspect current issues are more so from COVID and less likely from heart failure. However, these patients could have some components of fluid overload. Okay for short-term IV diuretics but doubt she needs anything too aggressive. Her electrolytes are also quite abnormal and they need to be corrected. With regard to the cardiomyopathy, most likely left bundle-branch related. As an outpatient, we will also need assessment for CAD. Likely a diagnostic catheterization. With regard to medications, start Entresto and Coreg. Jardiance or Farxiga. Eventually, we will need to optimize all these meds. We will follow up with you. Procedures Date of Service Date of Service: 12/24/24
[2024-12-24] MEDS: 0.9 % Sodium Chloride Flush 3 ML SYRINGE IVFLUSH ×3 (09:30→21:04)
[2024-12-24 11:00] LABS: Troponin-I High Sensitivity 56.3 ng/L (<3.5-17.0)
[2024-12-24] MEDS: Remdesivir 100 MG in 0.9 % Sodium Chloride 230 ML 115 MG IV (11:25)
[2024-12-24] MEDS: Sacubitril/Valsartan 24/26 1 TAB TABLET PO ×2 (11:26→20:40)
[2024-12-24 11:33] LABS: Glucose, Whole Blood 127 mg/dL (60-115)
--- NOTE | 2024-12-24 15:15 | MHC.CM.PN ---
Per rounds, pt. requiring IV lasix, anticipate needing 1-2 more days acute care. DCP: home, self care
[2024-12-24 16:12] LABS: Glucose, Whole Blood 156 mg/dL (60-115)
[2024-12-24 20:20] LABS: Glucose, Whole Blood 145 mg/dL (60-115)
[2024-12-25 00:16] LABS: Glucose, Whole Blood 141 mg/dL (60-115)
[2024-12-25 03:19] VITALS: BP 112/57; PULSE 80; RESP 18; TEMP 36.4; O2SAT 99
[2024-12-25 06:00] VITALS: BMI 22.5
[2024-12-25 06:12] LABS: MANUAL DIFF FLAG NO
[2024-12-25 06:19] LABS: Hematocrit 36.4 % (37.0-47.0); Hemoglobin 13.2 g/dl (12.0-16.0); Imm Gran Abs Auto 0.01 X10*3/uL (0.00-0.03); Imm Gran Pct Auto 0.1 % (0.0-0.4); Lymphocytes Absolute Auto 1.3 X10*3/uL (1.2-4.9); Mean Corpuscular HGB Conc 36.3 g/dl (31.0-35.0); Mean Corpuscular Hemoglobin 31.7 pg (27.0-33.0); Mean Corpuscular Volume 87.5 fL (80.0-98.0); NRBC Abs Auto 0.000 X10*3/uL (0.0-0.012); NRBC Pct Auto 0.0 /100WBC (0.0-0.2); Platelet Count 262 X10*3/uL (160-400); Red Blood Count 4.16 X10*6/uL (4.20-5.50); White Blood Count 7.1 X10*3/uL (4.8-10.8)
[2024-12-25 06:42] LABS: Alanine Aminotransferase 24 U/L (0-31); Albumin Level 3.4 g/dL (3.5-5.0); Alkaline Phosphatase 75 U/L (39-117); Anion Gap 14 (12-20); Aspartate Amino Transferase 37 U/L (5-31); Blood Urea Nitrogen 19 mg/dL (9-16); Calcium 7.7 mg/dL (8.4-10.2); Carbon Dioxide 28 mmol/L (22-29); Chloride 95 mmol/L (96-108); Creatinine Clr Calc Pharmacy 63.3; Estimated Glomerular Filt Rate > 60; Magnesium 2.2 mg/dL (1.6-2.6); Potassium 3.5 mmol/L (3.3-5.1); Sodium 133 mmol/L (135-145); Total Protein 6.3 g/dL (6.5-8.0)
--- NOTE | 2024-12-25 07:29 | HO.PM.IMPN ---
Subjective Subjective Date of Service: 12/25/24 Interval History: Patient is not hypoxic on room air at the time of my examination in the morning TTE revealed HFrEF LVEF 15% GDM T initiated with carvedilol, Entresto, Jardiance and diuretics, we will need to add spironolactone as outpatient Goals of care discussion initiated-patient to consult her family-if she decompensated-she did not want to be kept alive artificially, not yet ready to change her code status She was otherwise medically optimized for discharge, however PT eval revealed that she needs SDR significant deconditioning and this is the reason for her ongoing hospitalization Review of Systems Review of Systems: Yes all other systems are reviewed and are negative Physical Exam Exam: Exam: General: AOx3, today seems to be doing significantly better Resp: CTA bilaterally CVS: S1, S2, RRR GI: +BS, reports relief of constipation Psych: Anxious affect Vital Signs: Vital Signs: Last Vital Signs Temp 97.5 F 12/25/24 03:19 Pulse 80 12/25/24 03:19 Resp 18 12/25/24 03:19 BP 112/57 L 12/25/24 03:19 Pulse Ox 99 12/25/24 03:19 O2 Del Method Nasal Cannula 12/25/24 03:19 O2 Flow Rate 4 12/25/24 03:19 FiO2 35 12/23/24 10:00 Oxygen Flow Rate 6 12/22/24 23:45 BMI result Body Mass Index 22.5 Objective Data Active Medications Bisacodyl (Bisacodyl 10 Mg Supp.Rect) 10 mg NM BEDTIME [facility] Last Admin: 12/24/24 20:50 Dose: 10 mg Documented By: SUSAN Carvedilol (Carvedilol 12.5 Mg Tablet) 12.5 mg PO BID [facility]; Protocol Last Admin: 12/24/24 20:40 Dose: 12.5 mg Documented By: SUSAN Ceftriaxone Sodium (Ceftriaxone Sodium 1 Gm Vial) 1 gm IVPUSH Q24H [facility] Last Admin: 12/24/24 23:39 Dose: 1 gm Documented By: SUSAN Dextrose (Dextrose 50 % 25 Gm/50 Ml Syringe) 25 gm IVPUSH Q15M PRN; Protocol PRN Reason: per Hypoglycemia Standing Ord. Docusate Sodium (Docusate Sodium 100 Mg Capsule) 100 mg PO BID PRN PRN Reason: Constipation Empagliflozin (Empagliflozin 25 Mg Tablet) 25 mg PO DAILY [facility] Last Admin: 12/24/24 11:28 Dose: 25 mg Documented By: MAAME Enoxaparin Sodium (Enoxaparin Sodium 40 Mg/0.4 Ml Syringe) 40 mg SUBCUT Q24H [facility] Last Admin: 12/24/24 09:05 Dose: 40 mg Documented By: MAAME Famotidine (Famotidine/Pf 20 Mg/2 Ml Vial) 20 mg IVPUSH BID [facility] Last Admin: 12/24/24 20:50 Dose: 20 mg Documented By: SUSAN Furosemide (Furosemide 100 Mg/10 Ml Vial) 60 mg IVPUSH BID@0830,1330 [facility]; Protocol Last Admin: 12/24/24 13:29 Dose: 60 mg Documented By: MAAME Glucose (Glucose Gel 15 Gm Gel..Gram.) 15 gm PO Q15M PRN; Protocol PRN Reason: per Hypoglycemia Standing Ord. Hydromorphone HCl (Hydromorphone Hcl 1 Mg/Ml Syringe) 0.5 mg IVPUSH Q6H PRN; Protocol PRN Reason: distress Last Admin: 12/23/24 05:43 Dose: 0.5 mg Documented By: LINSEY Azithromycin 500 mg/ Sodium (Chloride) 250 mls @ 125 mls/hr IV Q24H [facility] Last Infusion: 12/25/24 06:49 Dose: Infused Documented By: MAAME Remdesivir 100 mg/ Sodium (Chloride) 230 mls @ 115 mls/hr IV Q24H [facility] Stop: 12/27/24 09:59 Last Infusion: 12/24/24 13:37 Dose: Infused Documented By: MAAME Insulin Human Lispro (Insulin Lispro 100 Unit/Ml 3 Ml Vial) 0 unit SUBCUT Q6H [facility]; Protocol Last Admin: 12/25/24 06:59 Dose: Not Given Documented By: SUSAN Non-Admin Reason: No Insulin Coverage Nitroglycerin (Nitroglycerin 0.4 Mg Tab.Subl) 0.4 mg SUBLINGUAL Q5MX3 PRN PRN Reason: Chest Pain Last Admin: 12/24/24 06:15 Dose: 0.4 mg Documented By: J CARLOS Polyethylene Glycol (Polyethylene Glycol 3350 17 Gm Powd.Pack) 17 gm PO DAILY [facility] Last Admin: 12/24/24 11:25 Dose: 17 gm Documented By: MAAME Sacubitril/Valsartan (Sacubitril/Valsartan 1 Tab Tablet) 1 tab PO BID [facility]; Protocol Last Admin: 12/24/24 20:40 Dose: 1 tab Documented By: SUSAN Senna/Docusate Sodium (Sennosides/Docusate Sodium Tablet) 1 tab PO BID PRN PRN Reason: Constipation Sodium Chloride (0.9 % Sodium Chloride Flush 3 Ml Syringe) 3 ml IVFLUSH QSHIFT [facility] Last Admin: 12/24/24 21:04 Dose: 3 ml Documented By: SUSAN Trazodone HCl (Trazodone Hcl 25 Mg Halftab) 12.5 mg PO BEDTIME PRN PRN Reason: Insomnia Last Admin: 12/24/24 00:24 Dose: 12.5 mg Documented By: J CARLOS Labs 12/25/24 05:58 12/25/24 05:58 Labs: Laboratory Results - last 24 hr 12/24/24 12/24/24 12/24/24 07:00 07:01 07:07 MCV MCH MCHC RDW Plt Count MPV Immature Gran % (Auto) Neut % (Auto) Lymph % (Auto) [place] % (Auto) Eos % (Auto) Baso % (Auto) Lymph # (Auto) [place] # (Auto) Eos # (Auto) Baso # (Auto) Abs Immat Gran (auto) Absolute Neuts (auto) Absolute Nucleated RBC Nucleated RBC % (auto) VBG pH 7.63 H* VBG pCO2 25 VBG pO2 79 VBG HCO3 27 H VBG O2 Saturation 97.0 VBG Base Excess 7.5 Anion Gap 16 Estim Creat Clear Calc 64.3 Estimated GFR > 60 POC Glucose Random Glucose 129 H Calcium 7.8 L Phosphorus 2.8 Magnesium 2.0 Total Bilirubin 0.8 AST 39 H ALT 27 Alkaline Phosphatase 77 Troponin I High Sens 43.3 H Total Protein 6.4 L Albumin 3.7 12/24/24 12/24/24 12/24/24 07:34 10:07 11:30 MCV MCH MCHC RDW Plt Count MPV Immature Gran % (Auto) Neut % (Auto) Lymph % (Auto) [place] % (Auto) Eos % (Auto) Baso % (Auto) Lymph # (Auto) [place] # (Auto) Eos # (Auto) Baso # (Auto) Abs Immat Gran (auto) Absolute Neuts (auto) Absolute Nucleated RBC Nucleated RBC % (auto) VBG pH VBG pCO2 VBG pO2 VBG HCO3 VBG O2 Saturation VBG Base Excess Anion Gap Estim Creat Clear Calc Estimated GFR POC Glucose 126 H 127 H Random Glucose Calcium Phosphorus Magnesium Total Bilirubin AST ALT Alkaline Phosphatase Troponin I High Sens 56.3 H* Total Protein Albumin 12/24/24 12/24/24 12/25/24 16:05 20:12 00:10 MCV MCH MCHC RDW Plt Count MPV Immature Gran % (Auto) Neut % (Auto) Lymph % (Auto) Chaves % (Auto) Eos % (Auto) Baso % (Auto) Lymph # (Auto) [place] # (Auto) Eos # (Auto) Baso # (Auto) Abs Immat Gran (auto) Absolute Neuts (auto) Absolute Nucleated RBC Nucleated RBC % (auto) VBG pH VBG pCO2 VBG pO2 VBG HCO3 VBG O2 Saturation VBG Base Excess Anion Gap Estim Creat Clear Calc Estimated GFR POC Glucose 156 H 145 H 141 H Random Glucose Calcium Phosphorus Magnesium Total Bilirubin AST ALT Alkaline Phosphatase Troponin I High Sens Total Protein Albumin 12/25/24 05:58 MCV 87.5 MCH 31.7 MCHC 36.3 H RDW 13.2 Plt Count 262 MPV 10.3 Immature Gran % (Auto) 0.1 Neut % (Auto) 70.4 Lymph % (Auto) 17.8 L Chaves % (Auto) 11.1 H Eos % (Auto) 0.0 Baso % (Auto) 0.6 Lymph # (Auto) 1.3 Chaves # (Auto) 0.8 Eos # (Auto) 0.0 Baso # (Auto) 0.0 Abs Immat Gran (auto) 0.01 Absolute Neuts (auto) 5.0 Absolute Nucleated RBC 0.000 Nucleated RBC % (auto) 0.0 VBG pH VBG pCO2 VBG pO2 VBG HCO3 VBG O2 Saturation VBG Base Excess Anion Gap 14 Estim Creat Clear Calc 63.3 Estimated GFR > 60 POC Glucose Random Glucose 124 H Calcium 7.7 L Phosphorus Magnesium 2.2 Total Bilirubin 0.7 AST 37 H ALT 24 Alkaline Phosphatase 75 Troponin I High Sens Total Protein 6.3 L Albumin 3.4 L Microbiology Microbiology Results: Microbiology 12/22/24 23:42 Blood Culture - Preliminary Blood - Venous No growth after 48 hours. 12/22/24 23:34 Blood Culture - Preliminary Blood - Venous No growth after 48 hours. Assessment and Plan (1) COVID: Status: Acute Plan Pt is a 79 yo F with PMH notable for HTN, HLD, prior CVA who was admitted to the ICU briefly not necessitating intubation or pressor support on 12/23/24 2/2 AHRF 2/2 COVID pna with possible secondary bacterial pna, with newly diagnosed HFrEF (EF 15%) of unclear etiology, was transferred to floors on 12/24/24 on 2L O2 AHRF with hypoxia (down to low 80%), tachypnea COVID pna with possible secondary bacterial pna-resolved with nebulizers and She was initially treated with IV ABX, de-escalated to Augmentin 875 b.i.d. for 7 more days to complete a total 10 day course of antibiotics Remdesivir 3/5 days Cont suppportive care She was briefly on Bipap in ICU, thankfully today is not hypoxic Newly diagnosed HFrEF (LVEF 15%)-initiated on GDM T =- Entresto, Coreg and Farciga Type II Troponenemia - 2/2 ongoing medical conditions HTN - hold home meds 2/2 sepsis HLD Will need OP Cardiac cath remains CP free since 1 time POA , but given new diagnosis and workup for CP POA revealed HFrEF , hence GDMT with Entresto, Coreg and Farciga initiated from 12/24/24, spironolactone we will be initiated outpatient after follow-up with cardiology cardiomyopathy, most likely left bundle-branch related - will need OP Cath once medically optimized Cardiac rehab PT/OT Lasix switch to p.o. from IV Electrolytes to be checked daily and repleted to goal Tele Contipation 2/2 deconditioning - symptomatic relief with bowel meds PT/OT DVT px - lovenox daily FULL code per pt's wishes goals of care ongoing, patient does not want to be kept alive artificially Patient is medically optimized for her hypoxia and new onset HFrEF in the secondary to COVID pneumonia, however significantly deconditioned and at high-risk of decompensation, case planner working on placement This note is constructed using voice recognition software. While every effort has been made to ensure accuracy, custodial services manager errors may have been included. Quality Stroke Does the patient have a stroke diagnosis?: No VTE Prior VTE?: No VTE Risk Level:: Medical - moderate - high VTE Device Contraindication: N/A - Device Ordered VTE Drug Contraindication: N/A - Med Ordered
[2024-12-25 07:30] LABS: Glucose, Whole Blood 131 mg/dL (60-115)
[2024-12-25 07:49] VITALS: BP 116/62; PULSE 84; RESP 18; TEMP 36.8; O2SAT 94
[2024-12-25] MEDS: Furosemide 100 MG/10 ML VIAL 60 MG IVPUSH ×2 (07:55→13:52)
[2024-12-25] MEDS: Sacubitril/Valsartan 24/26 1 TAB TABLET PO ×2 (07:56→20:20)
[2024-12-25] MEDS: Remdesivir 100 MG in 0.9 % Sodium Chloride 230 ML 115 MG IV (07:58)
[2024-12-25] MEDS: 0.9 % Sodium Chloride Flush 3 ML SYRINGE IVFLUSH ×3 (07:58→20:26)
--- NOTE | 2024-12-25 09:47 | PC.RT ---
pt has recoveder from her acute onset of chf therefore cpap is no longer needed. she also has not worn it in 3 days. per policy, cpap is dc'd
--- NOTE | 2024-12-25 10:03 | PM.PNCARD ---
Subjective Subjective Date of Service: 12/25/24 Interval history: She states she feels fine. She denies any chest pains or shortness of breath. She seems to be walking in her room. Review of Systems Review of Systems Yes all other systems are reviewed and are negative Constitutional: Reports as per HPI and Reports no additional constitutional complaints Eyes: Reports as per HPI and Denies no additional eye complaints Denies system reviewed and no additional complaints, except as documented and Reports as per HPI Cardiovascular: Reports as per HPI, Reports no additional cardiovascular complaints, Denies acrocyanosis, Denies cool extremities, Denies chest pain, Denies leg edema, Denies lightheadedness, Denies palpitations and Denies dyspnea Respiratory: Reports as per HPI, Denies no additional respiratory complaints and Denies dyspnea Gastrointestinal: Reports as per HPI and Denies no additional gastrointestinal complaints Genitourinary: Reports as per HPI Musculoskeletal: Reports no additional musculoskeletal complaints and Reports as per HPI Skin/Breast: Reports system reviewed and no additional complaints, except as docu Reports system reviewed and no additional complaints, except as documented and Reports as per HPI Psychiatric: Reports no additional psychiatric complaints and Reports as per HPI Endocrine: Reports no additional endocrine complaints, Reports as per HPI and Denies palpitations Hematologic/Lymphatic: Reports no additional hematologic/lymphatic complaints and Reports as per HPI Allergic/Immunologic: Reports no additional allergic/immunologic complaints and Reports as per HPI Physical Exam Vital Signs: Last Vital Signs Temp 98.2 F 12/25/24 07:49 Pulse 84 12/25/24 07:49 Resp 18 12/25/24 07:49 BP 116/62 12/25/24 07:49 Pulse Ox 94 12/25/24 07:49 O2 Del Method Room Air 12/25/24 07:49 O2 Flow Rate 4 12/25/24 03:19 FiO2 35 12/23/24 10:00 Oxygen Flow Rate 6 12/22/24 23:45 BMI result Body Mass Index 22.5 Const General: comfortable and no acute distress Orientation/consciousness: patient oriented x3 HEENT Other: Unremarkable Head: Yes normal to inspection Neck Neck: Yes normal visual inspection Chest Chest palpation & inspection: normal inspection of the chest Resp Auscultation: diminished lung sounds Cardio Palpation: normal PMI Heart sounds: S1 normal heart sound present, S2 normal heart sound present, no gallops, no murmurs and no rubs GI Palpation (GI): Soft to palpation Back/Spine/Pelvis Other: unremarkable Skin General skin exam: no rashes or lesions noted Neuro General: patient oriented x3 Extrem General: Yes normal to inspection Psych Mental Status: mental status grossly normal Objective Labs and Meds 12/25/24 05:58 12/25/24 05:58 Lab results: Laboratory Results - last 24 hr 12/24/24 12/24/24 12/24/24 10:07 11:30 16:05 WBC RBC Hgb Hct MCV MCH MCHC RDW Plt Count MPV Immature Gran % (Auto) Neut % (Auto) Lymph % (Auto) Shannon % (Auto) Eos % (Auto) Baso % (Auto) Lymph # (Auto) Shannon # (Auto) Eos # (Auto) Baso # (Auto) Abs Immat Gran (auto) Absolute Neuts (auto) Absolute Nucleated RBC Nucleated RBC % (auto) Sodium Potassium Chloride Carbon Dioxide Anion Gap BUN Creatinine Estim Creat Clear Calc Estimated GFR POC Glucose 127 H 156 H Random Glucose Calcium Magnesium Total Bilirubin AST ALT Alkaline Phosphatase Troponin I High Sens 56.3 H* Total Protein Albumin 12/24/24 12/25/24 12/25/24 20:12 00:10 05:58 WBC 7.1 RBC 4.16 L Hgb 13.2 Hct 36.4 L MCV 87.5 MCH 31.7 MCHC 36.3 H RDW 13.2 Plt Count 262 MPV 10.3 Immature Gran % (Auto) 0.1 Neut % (Auto) 70.4 Lymph % (Auto) 17.8 L Shannon % (Auto) 11.1 H Eos % (Auto) 0.0 Baso % (Auto) 0.6 Lymph # (Auto) 1.3 Shannon # (Auto) 0.8 Eos # (Auto) 0.0 Baso # (Auto) 0.0 Abs Immat Gran (auto) 0.01 Absolute Neuts (auto) 5.0 Absolute Nucleated RBC 0.000 Nucleated RBC % (auto) 0.0 Sodium 133 L Potassium 3.5 D Chloride 95 L Carbon Dioxide 28 Anion Gap 14 BUN 19 H Creatinine 0.63 Estim Creat Clear Calc 63.3 Estimated GFR > 60 POC Glucose 145 H 141 H Random Glucose 124 H Calcium 7.7 L Magnesium 2.2 Total Bilirubin 0.7 AST 37 H ALT 24 Alkaline Phosphatase 75 Troponin I High Sens Total Protein 6.3 L Albumin 3.4 L 12/25/24 06:53 WBC RBC Hgb Hct MCV MCH MCHC RDW Plt Count MPV Immature Gran % (Auto) Neut % (Auto) Lymph % (Auto) Shannon % (Auto) Eos % (Auto) Baso % (Auto) Lymph # (Auto) Shannon # (Auto) Eos # (Auto) Baso # (Auto) Abs Immat Gran (auto) Absolute Neuts (auto) Absolute Nucleated RBC Nucleated RBC % (auto) Sodium Potassium Chloride Carbon Dioxide Anion Gap BUN Creatinine Estim Creat Clear Calc Estimated GFR POC Glucose 131 H Random Glucose Calcium Magnesium Total Bilirubin AST ALT Alkaline Phosphatase Troponin I High Sens Total Protein Albumin Progress Note: A&P Assessment and plan (1) Acute congestive heart failure: Status: Acute (2) COVID: Status: Acute Plan In the echocardiogram, LVEF is 15%. Low-grade troponin elevation. NT pro BNP 2196. COVID-19 positive. Overall, suspect current issues are more so from COVID and less likely from heart failure. However, these patients could have some components of fluid overload. She seems to have improved. Recommend guideline based medical therapy including carvedilol, Entresto, Jardiance, diuretics. We can add spironolactone as well as an outpatient. We will arrange outpatient follow-up. Time Spent With Patient Time: Total time managing care of this patient today ____ minutes. Progress Note: Quality Stroke Does the patient have a stroke diagnosis?: No Procedures Date of Service Date of Service: 12/25/24
[2024-12-25 11:29] VITALS: BP 116/64; PULSE 79; RESP 18; TEMP 36.4; O2SAT 97
[2024-12-25 11:38] LABS: Glucose, Whole Blood 128 mg/dL (60-115)
[2024-12-25 16:00] VITALS: BP 112/56; PULSE 74; RESP 18; TEMP 36.7; O2SAT 94
[2024-12-25 16:01] LABS: Glucose, Whole Blood 128 mg/dL (60-115)
[2024-12-25 20:00] VITALS: BP 133/61; PULSE 80; RESP 18; TEMP 36.9; O2SAT 93
[2024-12-25 20:08] LABS: Glucose, Whole Blood 150 mg/dL (60-115)
[2024-12-25 23:46] VITALS: BP 109/59; PULSE 76; RESP 18; TEMP 36.5; O2SAT 94
[2024-12-26 02:25] LABS: Albumin Level 3.5 g/dL (3.5-5.0); Magnesium 2.2 mg/dL (1.6-2.6); Potassium 2.8 mmol/L (3.3-5.1)
[2024-12-26] MEDS: Potassium Chloride Packet 20 MEQ PACKET 40 MEQ PO (02:35)
[2024-12-26] MEDS: Potassium Chloride/H20 10 MEQ/100 ML PIGGYBACK 100 MEQ IV ×2 (02:35→03:32)
[2024-12-26 03:36] VITALS: BP 121/60; PULSE 84; RESP 18; TEMP 36.6; O2SAT 95
[2024-12-26 06:00] VITALS: BMI 22.5
--- NOTE | 2024-12-26 06:45 | PM.EVENT ---
Event Note Date of Service: 12/26/24 Event Note: Prolonged QT noted overnight. Zofran and trazodone were discontinued. Electrolytes checked and significant hypokalemia noted. With repleting. Continue telemetry. Time Spent With Patient Time: Total time managing care of this patient today ____ minutes.
[2024-12-26 07:05] LABS: MANUAL DIFF FLAG NO
[2024-12-26 07:15] LABS: Hematocrit 36.3 % (37.0-47.0); Hemoglobin 13.2 g/dl (12.0-16.0); Imm Gran Abs Auto 0.01 X10*3/uL (0.00-0.03); Imm Gran Pct Auto 0.2 % (0.0-0.4); Lymphocytes Absolute Auto 1.3 X10*3/uL (1.2-4.9); Mean Corpuscular HGB Conc 36.4 g/dl (31.0-35.0); Mean Corpuscular Hemoglobin 32.0 pg (27.0-33.0); Mean Corpuscular Volume 87.9 fL (80.0-98.0); NRBC Abs Auto 0.000 X10*3/uL (0.0-0.012); NRBC Pct Auto 0.0 /100WBC (0.0-0.2); Platelet Count 265 X10*3/uL (160-400); Red Blood Count 4.13 X10*6/uL (4.20-5.50); White Blood Count 6.2 X10*3/uL (4.8-10.8)
--- NOTE | 2024-12-26 07:19 | HO.PM.IMPN ---
Subjective Subjective Date of Service: 12/26/24 Physical Exam Vital Signs: Vital Signs: Last Vital Signs Temp 97.8 F 12/26/24 03:36 Pulse 84 12/26/24 03:36 Resp 18 12/26/24 03:36 BP 121/60 12/26/24 03:36 Pulse Ox 95 12/26/24 03:36 O2 Del Method Room Air 12/26/24 03:36 O2 Flow Rate 4 12/25/24 03:19 FiO2 35 12/23/24 10:00 Oxygen Flow Rate 6 12/22/24 23:45 BMI result Body Mass Index 22.5 Objective Data Active Medications Amoxicillin/Clavulanate Potassium (Amoxicillin/Potassium Clav 875 Mg Tablet) 875 mg PO Q12H [facility] Stop: 12/30/24 15:59 Last Admin: 12/26/24 03:32 Dose: 875 mg Documented By: SUSAN Bisacodyl (Bisacodyl 10 Mg Supp.Rect) 10 mg AL BEDTIME [facility] Last Admin: 12/25/24 20:20 Dose: Not Given Documented By: SUSAN Non-Admin Reason: Patient Refused Carvedilol (Carvedilol 12.5 Mg Tablet) 12.5 mg PO BID [facility]; Protocol Last Admin: 12/25/24 20:20 Dose: 12.5 mg Documented By: SUSAN Dextrose (Dextrose 50 % 25 Gm/50 Ml Syringe) 25 gm IVPUSH Q15M PRN; Protocol PRN Reason: per Hypoglycemia Standing Ord. Docusate Sodium (Docusate Sodium 100 Mg Capsule) 100 mg PO BID PRN PRN Reason: Constipation Empagliflozin (Empagliflozin 25 Mg Tablet) 25 mg PO DAILY [facility] Last Admin: 12/25/24 07:56 Dose: 25 mg Documented By: JOHN PAULPAMikal Enoxaparin Sodium (Enoxaparin Sodium 40 Mg/0.4 Ml Syringe) 40 mg SUBCUT Q24H [facility] Last Admin: 12/25/24 07:55 Dose: 40 mg Documented By: MAAME Furosemide (Furosemide 20 Mg Tablet) 60 mg PO DAILY [facility]; Protocol Furosemide (Furosemide 40 Mg Tablet) 40 mg PO DAILY [facility]; Protocol Glucose (Glucose Gel 15 Gm Gel..Gram.) 15 gm PO Q15M PRN; Protocol PRN Reason: per Hypoglycemia Standing Ord. Hydromorphone HCl (Hydromorphone Hcl 1 Mg/Ml Syringe) 0.5 mg IVPUSH Q6H PRN; Protocol PRN Reason: distress Last Admin: 12/23/24 05:43 Dose: 0.5 mg Documented By: LINSEY Remdesivir 100 mg/ Sodium (Chloride) 230 mls @ 115 mls/hr IV Q24H [facility] Stop: 12/27/24 09:59 Last Infusion: 12/25/24 10:03 Dose: Infused Documented By: MAAME Nitroglycerin (Nitroglycerin 0.4 Mg Tab.Subl) 0.4 mg SUBLINGUAL Q5MX3 PRN PRN Reason: Chest Pain Last Admin: 12/24/24 06:15 Dose: 0.4 mg Documented By: J CARLOS Ondansetron HCl (Ondansetron Hcl 4 Mg/2 Ml Vial) 4 mg IVPUSH Q8H PRN On Hold: 12/26/24 01:00 PRN Reason: Nausea and Vomiting Last Admin: 12/25/24 12:15 Dose: 4 mg Documented By: MAAME Polyethylene Glycol (Polyethylene Glycol 3350 17 Gm Powd.Pack) 17 gm PO DAILY [facility] Last Admin: 12/25/24 07:55 Dose: 17 gm Documented By: MAAME Sacubitril/Valsartan (Sacubitril/Valsartan 1 Tab Tablet) 1 tab PO BID [facility]; Protocol Last Admin: 12/25/24 20:20 Dose: 1 tab Documented By: SUSAN Senna/Docusate Sodium (Sennosides/Docusate Sodium Tablet) 1 tab PO BID PRN PRN Reason: Constipation Sodium Chloride (0.9 % Sodium Chloride Flush 3 Ml Syringe) 3 ml IVFLUSH QSHIFT [facility] Last Admin: 12/25/24 20:26 Dose: 3 ml Documented By: SUSAN Trazodone HCl (Trazodone Hcl 25 Mg Halftab) 12.5 mg PO BEDTIME PRN On Hold: 12/26/24 01:00 PRN Reason: Insomnia Last Admin: 12/24/24 00:24 Dose: 12.5 mg Documented By: J CARLOS Labs 12/26/24 06:28 12/26/24 01:46 Labs: Laboratory Results - last 24 hr 12/25/24 12/25/24 12/25/24 06:53 11:33 15:56 MCV MCH MCHC RDW Plt Count MPV Immature Gran % (Auto) Neut % (Auto) Lymph % (Auto) Boyle % (Auto) Eos % (Auto) Baso % (Auto) Lymph # (Auto) [place] # (Auto) Eos # (Auto) Baso # (Auto) Abs Immat Gran (auto) Absolute Neuts (auto) Absolute Nucleated RBC Nucleated RBC % (auto) POC Glucose 131 H 128 H 128 H Phosphorus Magnesium Albumin 12/25/24 12/26/24 12/26/24 20:05 01:46 06:28 MCV 87.9 MCH 32.0 MCHC 36.4 H RDW 13.2 Plt Count 265 MPV 10.3 Immature Gran % (Auto) 0.2 Neut % (Auto) 63.5 Lymph % (Auto) 20.9 Boyle % (Auto) 14.1 H Eos % (Auto) 0.8 Baso % (Auto) 0.5 Lymph # (Auto) 1.3 Boyle # (Auto) 0.9 Eos # (Auto) 0.1 Baso # (Auto) 0.0 Abs Immat Gran (auto) 0.01 Absolute Neuts (auto) 4.0 Absolute Nucleated RBC 0.000 Nucleated RBC % (auto) 0.0 POC Glucose 150 H Phosphorus 4.5 Magnesium 2.2 Albumin 3.5 Quality Stroke Does the patient have a stroke diagnosis?: No VTE Prior VTE?: No VTE Risk Level:: Medical - moderate - high VTE Device Contraindication: N/A - Device Ordered VTE Drug Contraindication: N/A - Med Ordered
[2024-12-26 07:31] LABS: Alanine Aminotransferase 25 U/L (0-31); Albumin Level 3.5 g/dL (3.5-5.0); Alkaline Phosphatase 94 U/L (39-117); Aspartate Amino Transferase 33 U/L (5-31); Blood Urea Nitrogen 23 mg/dL (9-16); Calcium 7.9 mg/dL (8.4-10.2); Creatinine Clr Calc Pharmacy 54.7; Estimated Glomerular Filt Rate > 60; Magnesium 2.2 mg/dL (1.6-2.6); Total Protein 6.2 g/dL (6.5-8.0)
[2024-12-26 07:39] LABS: Anion Gap 14 (12-20); Carbon Dioxide 29 mmol/L (22-29); Chloride 92 mmol/L (96-108); Potassium 3.6 mmol/L (3.3-5.1); Sodium 131 mmol/L (135-145)
[2024-12-26 07:50] VITALS: BP 134/58; PULSE 68; RESP 18; TEMP 36.5; O2SAT 94
[2024-12-26 07:56] LABS: Glucose, Whole Blood 126 mg/dL (60-115)
[2024-12-26] MEDS: Remdesivir 100 MG in 0.9 % Sodium Chloride 230 ML 115 MG IV (09:14)
[2024-12-26] MEDS: 0.9 % Sodium Chloride Flush 3 ML SYRINGE IVFLUSH (09:14)
[2024-12-26] MEDS: Sacubitril/Valsartan 24/26 1 TAB TABLET PO (09:15)
--- NOTE | 2024-12-26 09:53 | MHC.CM.PN ---
PT IS MEDICALLY CLEARED FOR DISCHARGE. PT RECOMMENDED STR, THIS CM MET WITH PT TO DISCUSS STR OPTIONS. LIST OF SNF'S FROM [facility] GIVEN TO PT TO REVIEW, AND STR REFERRALS PLACED IN [place], AWAITING BED OFFER. PT IS IN AGREEMENT WITH GOING TO STR, WILL AWAIT BED OFFER THEN REVIEW OPTIONS WITH PT.
[2024-12-26 11:52] VITALS: BP 116/57; PULSE 65; RESP 20; TEMP 36.2; O2SAT 97
[2024-12-26 12:01] LABS: Glucose, Whole Blood 139 mg/dL (60-115)
--- NOTE | 2024-12-26 13:17 | MHC.CM.PN ---
SECOND IMM GIVEN 12/26. PT IS MEDICALLY CLEARED FOR DISCHARGE TO [facility] VIA [id number]/[id number]. PT IS IN AGREEMENT WITH THE DISCHARGE PLAN.
--- NOTE | 2024-12-26 14:37 | P.DS_ITS ---
DS: Providers Provider Date of Service: 12/26/24 Date of admission: 12/23/24 02:52 Date of discharge: 12/26/24 Primary care physician: Scooby Shafer MD Consults: 12/23/24 18:33 Consult to Cardiology Routine Consulting Provider: [facility] [place] [facility] Reason for consultation: LVEF 15% DS: Diagnosis Discharge Diagnosis (1) COVID: Status: Acute DS: Summary Hospital Course Hospital Course: AHRF with hypoxia (down to low 80%), tachypnea COVID pna with possible secondary bacterial pna-resolved with nebulizers and antibiotics Pt is a 79 yo F with PMH notable for HTN, HLD, prior CVA who was admitted to the ICU briefly not necessitating intubation or pressor support on 12/23/24 2/2 AHRF 2/2 COVID pna with possible secondary bacterial pna, with newly diagnosed HFrEF (EF 15%) of unclear etiology, was transferred to floors on 12/24/24 on 2L O2 She was initially treated with IV ABX, de-escalated to Augmentin 875 b.i.d. for 4 more days to complete a total 7 day course of antibiotics at the time of discharge, was not hypoxic on room air nearly 2 days prior to discharge. Patient also was treated with remdesivir for day course with good effect. Newly diagnosed HFrEF (LVEF 15%)-initiated on GDM T =- Entresto, Coreg and Farciga Type II Troponenemia - 2/2 ongoing medical conditions HTN - resumed home meds prior to discharge in the setting of resolving sepsis HLD continue home Will need OP Cardiac cath we will need follow-up with cardiology outpatient remains CP free since 1 time POA , but given new diagnosis and workup for CP POA revealed HFrEF , hence GDMT with Entresto, Coreg and Farciga initiated from 12/24/24, spironolactone we will be initiated outpatient after follow-up with cardiology cardiomyopathy, most likely left bundle-branch related - will need OP Cath once medically optimized Cardiac rehab would be likely referred after cardiology follow-up outpatient Patient going to short-term rehab given significant deconditioning Patient was started on Lasix 60 mg in the a.m., 40 mg in the p.m. for diuretic effect Electrolytes were checked and placed on telemetry with good effect during this admission Contipation 2/2 deconditioning - symptomatic relief with bowel meds PT/OT significant deconditioning-patient being discharged to short-term rehab DVT px - lovenox daily during hospitalization Patient switched her code status to DNR DNI MOLST in chart This note is constructed using voice recognition software. While every effort has been made to ensure accuracy, splitter tender errors may have been included. Time spent discussing smoking cessation with patient: more than 10 minutes Status at Discharge Overall status at discharge: patient is not back to baseline Time Attestation Discharge Coordination Time (in mins): 45 Quality: Safe Use of Opioids Does Pt have an Active Cancer Diagnosis on the Problem List?: No Quality: Stroke Does the patient have a stroke diagnosis?: No Physical Exam Vital Signs: Vital Signs: Last Vital Signs Temp 97.1 F 12/26/24 11:52 Pulse 65 12/26/24 11:52 Resp 20 12/26/24 11:52 BP 116/57 L 12/26/24 11:52 Pulse Ox 97 12/26/24 11:52 O2 Del Method Room Air 12/26/24 11:52 O2 Flow Rate 4 12/25/24 03:19 FiO2 35 12/23/24 10:00 Oxygen Flow Rate 6 12/22/24 23:45 BMI result Body Mass Index 22.5 DS: Data Data Completed and Pending Labs on day of discharge: Laboratory Results - last 24 hr 12/25/24 12/25/24 12/26/24 15:56 20:05 01:46 WBC RBC Hgb Hct MCV MCH MCHC RDW Plt Count MPV Immature Gran % (Auto) Neut % (Auto) Lymph % (Auto) [place] % (Auto) Eos % (Auto) Baso % (Auto) Lymph # (Auto) [place] # (Auto) Eos # (Auto) Baso # (Auto) Abs Immat Gran (auto) Absolute Neuts (auto) Absolute Nucleated RBC Nucleated RBC % (auto) Sodium Potassium 2.8 L* Chloride Carbon Dioxide Anion Gap BUN Creatinine Estim Creat Clear Calc Estimated GFR POC Glucose 128 H 150 H Random Glucose Calcium Phosphorus 4.5 Magnesium 2.2 Total Bilirubin AST ALT Alkaline Phosphatase Total Protein Albumin 3.5 12/26/24 12/26/24 12/26/24 06:28 07:48 11:54 WBC 6.2 RBC 4.13 L Hgb 13.2 Hct 36.3 L MCV 87.9 MCH 32.0 MCHC 36.4 H RDW 13.2 Plt Count 265 MPV 10.3 Immature Gran % (Auto) 0.2 Neut % (Auto) 63.5 Lymph % (Auto) 20.9 [place] % (Auto) 14.1 H Eos % (Auto) 0.8 Baso % (Auto) 0.5 Lymph # (Auto) 1.3 [place] # (Auto) 0.9 Eos # (Auto) 0.1 Baso # (Auto) 0.0 Abs Immat Gran (auto) 0.01 Absolute Neuts (auto) 4.0 Absolute Nucleated RBC 0.000 Nucleated RBC % (auto) 0.0 Sodium 131 L Potassium 3.6 D Chloride 92 L Carbon Dioxide 29 Anion Gap 14 BUN 23 H Creatinine 0.66 Estim Creat Clear Calc 54.7 Estimated GFR > 60 POC Glucose 126 H 139 H Random Glucose 119 H Calcium 7.9 L Phosphorus Magnesium 2.2 Total Bilirubin 0.9 AST 33 H ALT 25 Alkaline Phosphatase 94 Total Protein 6.2 L Albumin 3.5 Preliminary micro results at discharge 12/22/24 23:42 Blood Culture - Preliminary Blood - Venous No growth after 48 hours. 12/22/24 23:34 Blood Culture - Preliminary Blood - Venous No growth after 48 hours. Discharge Plan Discharge Anticipated Discharge Date/Time: 12/26/24 14:27 Patient Disposition: Xfer SNF Discharge Diagnosis: AHRF 2/2 COPD pneumonia, new onset HFrEF 15% initiated on GDM T Referrals: [facility] [Outside] - 1 Week Scooby Shafer MD [Primary Care Provider, Internal Medicine] - 1 Week Discharge Medications: New furosemide 40 mg Tablet 40 mg PO DAILY 30 Days Qty: 30 3RF Protocol: Hold for SBP< HOLD for SBP < : 90 polyethylene glycol 3350 17 gram Powder In Packet 17 g PO DAILY Qty: 30 3RF bisacodyl [Gentle Laxative (bisacodyl)] 10 mg Suppository 10 mg MT BEDTIME 30 Days Qty: 30 3RF nitroglycerin [Nitrostat] 0.4 mg Tablet, Sublingual 0.4 mg sublingual Q5MX3 PRN (Reason: Chest Pain) 5 Days Qty: 5 0RF docusate sodium 100 mg Capsule 100 mg PO BID PRN (Reason: Constipation) 30 Days Qty: 30 3RF furosemide 20 mg Tablet 60 mg PO DAILY 30 Days Qty: 90 3RF Protocol: Hold for SBP< HOLD for SBP < : 90 amoxicillin-pot clavulanate 875-125 mg Tablet 1 tab PO Q12H 4 Days Qty: 8 0RF sacubitril-valsartan [Entresto] 24-26 mg Tablet 1 tab PO BID 30 Days Qty: 60 3RF Protocol: Hold for SBP< HOLD for SBP < : 90 Jardiance 25 mg Tablet 25 mg PO DAILY 30 Days Qty: 30 3RF Continued atorvastatin 40 mg tablet 40 mg PO DAILY 90 Days Qty: 90 3RF losartan 100 mg tablet 100 mg PO DAILY 90 Days Qty: 90 1RF aspirin 81 mg Tablet 81 mg PO DAILY cholecalciferol (vitamin D3) 10 mcg (400 unit) capsule 10 mcg PO DAILY amlodipine 5 mg tablet 5 mg PO BID 90 Days Qty: 180 3RF Discharge Orders: Discharge Order (Routine); Ordered 12/26/24 Ordered By: Erin Parsons Diet: Low salt diet Activity on Discharge: As tolerated Stand Alone Forms: Patient Portal Discharge page Print Language: Hungarian Care Plan Goals: Patient needs to complete treatment for COVID pneumonia with Augmentin for another 4 days to complete a total 7 day course of antibiotics-patient has tolerated Augmentin this a.m. prior to discharge Patient is not hypoxic on room air at this time of admission Patient needs to follow-up with PCP and Cardiology outpatient within a week of discharge New onset HFrEF likely in the setting of COVID however we can not rule out prior myopathy hence needs outpatient cardiac catheterization Patient would benefit from cardiac rehab likely we will need referral from Cardiology Significant constipation likely in the setting of deconditioning-prescribed bowel meds Patient is significantly deconditioned hence she is getting short-term rehab During this admission, patient changed her code status to DNR DNI Health Concerns: See above Plan of Treatment: See above Assessment: See above Patient Instructions: Pneumonia (DC)
== END 2024-12-26 17:05 | disposition skilled nursing facility (03) | DRG 871 ==
LOC: HO.ED 12-23 02:24 → HO.EDOVER 12-23 03:01 → HO.ICU 12-23 04:02 → HO.IMC 12-23 17:24
PROVIDERS: Family Medicine; Internal Medicine; Admitting Provider Physician Assistant Medical; Emergency Provider Student in an Organized Health Care Education/Training Program; PCP Family Medicine; Visit Provider Student in an Organized Health Care Education/Training Program
DX: A41.89 Other specified sepsis (principal); I50.21 Acute systolic (congestive) heart failure; J96.01 Acute respiratory failure with hypoxia; U07.1 COVID-19; J12.82 Pneumonia due to coronavirus disease 2019; J15.9 Unspecified bacterial pneumonia; E87.21 Acute metabolic acidosis; E87.1 Hypo-osmolality and hyponatremia; I42.9 Cardiomyopathy, unspecified; R79.89 Other specified abnormal findings of blood chemistry; I11.0 Hypertensive heart disease with heart failure; R94.31 Abnormal electrocardiogram [ECG] [EKG]; E87.6 Hypokalemia; R53.81 Other malaise; K59.00 Constipation, unspecified; I44.7 Left bundle-branch block, unspecified; E86.1 Hypovolemia; Z79.82 Long term (current) use of aspirin; Z79.899 Other long term (current) drug therapy
CPT/HCPCS: 36415; 36600; 71045; 71275; 80053; 82040; 82803; 82947; 83605; 83735; 83880; 84100; 84132; 84484; 85025; 87040; 87449; 87502; 87635; 93005; 93306; 94660; 97161; 99285; J0248; J0456; J0696; J1171; J1308; J1650; J1938; J1956; J2405; J2765; J2919; J3475; J3480; J7120; Q9957; Q9967

== ENCOUNTER → 2024-12-22 23:29 | Outpatient (BNV) | payer MEDICARE, OTHER, SELFPAY | PROVIDERS: Admitting Provider Physician Assistant Medical; Emergency Provider Student in an Organized Health Care Education/Training Program; PCP Family Medicine; Visit Provider Internal Medicine | DX: I44.7 Left bundle-branch block, unspecified (principal); R00.0 Tachycardia, unspecified | CPT/HCPCS: 93010 ==

== ENCOUNTER → 2024-12-22 23:30 | Outpatient (BNV) | payer MEDICARE, OTHER, SELFPAY | PROVIDERS: Emergency Provider Student in an Organized Health Care Education/Training Program; Visit Provider Radiology Diagnostic Radiology | DX: R91.8 Other nonspecific abnormal finding of lung field (principal) | CPT/HCPCS: 71045 ==

== ENCOUNTER 2024-12-23 02:52 | Outpatient (BNV) | payer MEDICARE, OTHER, SELFPAY | END 2024-12-24 06:25 | PROVIDERS: Admitting Provider Physician Assistant Medical; Emergency Provider Student in an Organized Health Care Education/Training Program; PCP Family Medicine; Visit Provider Internal Medicine | DX: R00.0 Tachycardia, unspecified (principal); I49.3 Ventricular premature depolarization; I44.7 Left bundle-branch block, unspecified | CPT/HCPCS: 93010 ==

== ENCOUNTER 2024-12-23 02:52 | Outpatient (BNV) | payer MEDICARE, OTHER, SELFPAY | END 2024-12-23 07:00 | PROVIDERS: Admitting Provider Physician Assistant Medical; Emergency Provider Student in an Organized Health Care Education/Training Program; PCP Family Medicine; Visit Provider Internal Medicine | DX: J96.01 Acute respiratory failure with hypoxia (principal); I34.0 Nonrheumatic mitral (valve) insufficiency; I51.89 Other ill-defined heart diseases | CPT/HCPCS: 93306 ==

== ENCOUNTER → 2024-12-23 02:52 | Outpatient (BNV) | payer MEDICARE, OTHER, SELFPAY | PROVIDERS: Admitting Provider Physician Assistant Medical; Emergency Provider Student in an Organized Health Care Education/Training Program; PCP Family Medicine; Visit Provider Internal Medicine | DX: I50.9 Heart failure, unspecified (principal); U07.1 COVID-19 | CPT/HCPCS: 99223 ==

== ENCOUNTER → 2024-12-23 02:52 | Outpatient (BNV) | payer MEDICARE, OTHER, SELFPAY | PROVIDERS: Admitting Provider Physician Assistant Medical; Emergency Provider Student in an Organized Health Care Education/Training Program; PCP Family Medicine; Visit Provider Radiology Vascular & Interventional Radiology | DX: J90 Pleural effusion, not elsewhere classified (principal); J98.11 Atelectasis; R59.0 Localized enlarged lymph nodes | CPT/HCPCS: 71275 ==

== ENCOUNTER → 2024-12-23 02:52 | Outpatient (BNV) | payer MEDICARE, OTHER, SELFPAY | PROVIDERS: Admitting Provider Physician Assistant Medical; Emergency Provider Student in an Organized Health Care Education/Training Program; PCP Family Medicine; Visit Provider Internal Medicine | DX: U07.1 COVID-19 (principal) | CPT/HCPCS: 99232; 99239; 99499 ==

== ENCOUNTER → 2024-12-23 02:52 | Outpatient (BNV) | payer MEDICARE, OTHER, SELFPAY | PROVIDERS: Admitting Provider Physician Assistant Medical; Emergency Provider Student in an Organized Health Care Education/Training Program; PCP Family Medicine; Visit Provider Physician Assistant Medical | DX: J96.01 Acute respiratory failure with hypoxia (principal) | CPT/HCPCS: 99291 ==

== ENCOUNTER 2025-01-15 14:45 | Outpatient (AMB) | payer MEDICARE, OTHER, SELFPAY ==
--- OUTSIDE RECORDS SUMMARY | 2022-10-03 09:45 | XMS_ITS | Encounter Summary ---
Author Organization [facility] Address [address] [place] [address] Phone Care Team Providers Care Manager Program Management Name Role Phone Sherrell Vidal POKER MANAGER Primary Care Provider Encounter Details Date Type Department Care Team (Late st Contact Info) Description 10/03/2022 9:45 AM EDT Hospital Encounter [facility] [address] [place] [phone] Iona Gonzalez, POKER MANAGER [address] [place] [address] [email or web address] Social History Tobacco Use Types Packs/Day Years [...] middle phalanx,likely a nondisplaced fracture. Iona Gonzalez POKER MANAGER IMG XR LOWER EXTREMITY Edit ed Result - Final documented in this encounter Visit Diagnoses Not on filedocumented in this encounter Care Teams Manager Program Management Relationship Specialty Start Date End Date Sherrell Vidal NP PCP - General Nurse Practitioner 10/03/22 06/10/23 documented as of this encounter Additional Source Comments The information contained in this document represents components of the legal health record. It is not the complete legal health record.[facility]
--- OUTSIDE RECORDS SUMMARY | 2023-06-11 08:43 | XMS_ITS | Encounter Summary ---
Author Organization [facility] Address [address] [place] [address] Phone Care Team Providers Care Hospitalist Name Role Phone Scooby Shafer MD Primary Care Provider Encounter Details Date Type Department Care Team (Late st Contact Info) Description 06/11/2023 8:43 AM EDT Hospital Encounter [facility] [address] [place] [address] Iona Gonzalez, WOOD SHOP TEACHER [address] [place] [address] [email or web address] Social History Tobacco Use Types Packs/Day [...] communicated on 06/11/2023 9:08 AM, Message ID [id number]. Narrative 06/11/2023 9:08 AM EDT XR ANKLE 3 OR MORE VIEWS (LEFT) Referring clinician's provided indication for this examination in [facility]: Pain; twisted ankle ? fx COMPARISON: [...] clinician's provided indication for this examination in [facility]:Pain; twisted ankle ? fx COMPARISON: None [...] was communicated on 06/11/2023 9:08 AM,Message ID [id number]. us Iona B Whitehill WOOD SHOP TEACHER IMG XR LOWER EXTREMITY Nishi l Result documented in this encounter Visit Diagnoses Not on filedocumented in this encounter Care Teams Hospitalist Relationship Specialty Start Date End Date Scooby Shafer MD [address] [place] [address] PCP - General Family Medicine 06/11/23 documented as of this encounter Additional Source Comments The information contained in this document represents components of the legal health record. It is not the complete legal health record.[facility]
--- OUTSIDE RECORDS SUMMARY | 2023-06-11 09:13 | XMS_ITS | Encounter Summary ---
Author Organization [facility] Address [address] [place] [address] Phone Care Team Providers Care Telephone Operator Receptionist Name Role Phone Scooby Shafer MD Primary Care Provider Encounter Details Date Type Department Care Team (Late st Contact Info) Description 06/11/2023 9:13 AM EDT Hospital Encounter [facility] [address] [place] [address] Iona Gonzalez, SUPERVISOR METAL CANS [address] [place] [address] [email or web address] Social History Tobacco Use Types Packs/Day [...] metatarsal avulsion fractures. us Iona B Ivanll SUPERVISOR METAL CANS IMG XR LOWER EXTREMITY Nishi l Result documented in this encounter Visit Diagnoses Not on filedocumented in this encounter Care Teams Telephone Operator Receptionist Relationship Specialty Start Date End Date Scooby Shafer MD [address] [place] [address] PCP - General Family Medicine 06/11/23 documented as of this encounter Additional Source Comments The information contained in this document represents components of the legal health record. It is not the complete legal health record.[facility]
--- NOTE | 2025-01-15 14:55 | A.OFFVIS_ITS ---
Vital Signs 01/15/25 14:59 Height 5 ft 2 in Weight 113 lb 12.136 oz BMI 20.8 BP 100/70 Blood Pressure Location Lt brachial Position Sitting Pulse 82 Pulse Source Pulse Oximeter Intake Visit Reasons: f/up- [facility] [place] Manager Physical Required: No Accompanied by: Self / Same As Patient Allergies Penicillins (PCN) Allergy (Mild, Verified 12/22/24 23:48) RASH pravastatin Adverse Reaction (Intermediate, Verified 12/22/24 23:48) body aches Medication List - Last Reconciled 01/15/25 by Ignacio Limon MD aspirin 81 mg PO DAILY atorvastatin 40 mg PO DAILY 3 months bisacodyl (Gentle Laxative (bisacodyl)) 10 mg SD BEDTIME 30 days cholecalciferol (vitamin D3) 10 mcg PO DAILY docusate sodium 100 mg PO BID PRN 30 days empagliflozin (Jardiance) 25 mg PO DAILY 30 days furosemide 60 mg See Protocol PO DAILY 30 days furosemide 40 mg See Protocol PO DAILY 30 days nitroglycerin (Nitrostat) 0.4 mg sublingual Q5MX3 PRN 5 days polyethylene glycol 3350 17 grams PO DAILY sacubitril-valsartan 24-26 mg (Entresto) 1 tab See Protocol PO BID 30 days HPI Comments Details: Dariana returns for follow-up regarding cardiomyopathy. Recently, admitted for respiratory failure/COVID and in that setting, she had an echocardiogram t hat showed severe LV dysfunction. Patient herself is not aware of any prior cardiac issues. He seems to be fairly active without any major concerns. No clear-cut angina or shortness of breath. EKG does show left bundle-branch block but she is not aware of that part either. She is on reasonable guideline based medical therapy after discharge. [facility] Medical History (Updated 01/15/25 @ 16:22 by Ignacio Limon MD) LBBB (left bundle branch block) Wears hearing aid in both ears COVID-19 vaccine series completed Hx of cerebral infarction Dupuytren contracture Hypercholesteremia Hypertension Surgical History Hx of squamous cell carcinoma excision Hx of tonsillectomy Hx of hand surgery H/O colonoscopy (~2016) Family History (Updated 01/15/25 @ 16:14 by Ignacio Limon MD) Unknown No problems noted. Other Mental health disorder Substance abuse Social History Household Members: None Housing: House Are you a primary pet caretaker to a significant other at home: No Do you presently have visiting nurse or other home services: No Patient Tobacco Use Status: Never used Tobacco e-Cigarette/Vaping Use: Never Used Second Hand Smoke Exposure: No service: No Current occupational status: retired Current occupational exposures/hazards: No Cognitive needs: No Hearing needs: Yes Vision needs: No Review of Systems Const Denies chills, Denies fatigue, Denies fever(s), Denies frequent falls, Denies weakness, Denies weight gain and Denies weight loss ENT Denies dizziness Card Denies chest pain, Denies leg edema, Denies lightheadedness, Denies palpitations, Denies dyspnea and Denies dyspnea on exertion Resp Denies cough, Denies dyspnea and Denies dyspnea on exertion GI Denies hematochezia Musc Denies abnormal gait, Denies muscle weakness, Denies numbness, Denies radiating pain into limb and Denies tingling Neuro Denies abnormal gait, Denies dizziness, Denies frequent falls, Denies numbness, Denies tingling and Denies weakness Endo Denies fatigue and Denies palpitations Physical Exam Vital Signs: Last Vital Signs Pulse 82 01/15/25 14:59 BP 100/70 01/15/25 14:59 BMI result Body Mass Index 20.8 Const General: comfortable and no acute distress Orientation/consciousness: patient oriented x3 HEENT Other: Unremarkable Head: Yes normal to inspection Neck Neck: Yes normal visual inspection Chest Chest palpation & inspection: normal inspection of the chest Resp Auscultation: clear to auscultation bilaterally Cardio Palpation: normal PMI Heart sounds: S1 normal heart sound present, S2 normal heart sound present, no gallops, no murmurs and no rubs GI Palpation (GI): Soft to palpation Back/Spine/Pelvis Other: unremarkable Skin General skin exam: no rashes or lesions noted Neuro General: patient oriented x3 Extrem General: Yes normal to inspection Psych Mental Status: mental status grossly normal Assessment & Plan Assessment & Plan (1) Cardiomyopathy: Code(s): I42.9 - Cardiomyopathy, unspecified Category: Medical (2) LBBB (left bundle branch block): Code(s): I44.7 - Left bundle-branch block, unspecified Category: Medical Plan EKGs shows sinus rhythm and left bundle-branch block pattern. In prior EKG from 2023, again shows left bundle-branch block. No older EKGs in our system. In the echocardiogram, LVEF 15%. Mild mitral regurgitation. Etiology for the cardiomyopathy could be left bundle-branch block but need to evaluate for ischemic cardiomyopathy. We will plan on diagnostic catheterization. If that is unremarkable, consider cardiac MRI. She may need EP evaluation for Bi V ICD. To be decided. Plan discussed with patient and she is agreeable. Otherwise, she seems stable for now. Discussion Notes I discussed with the patient the need for an angiogram to evaluate for coronary artery disease, which involves catheterization and dye injection to identify any blockages. We also talked about the potential need for a pacemaker if the left bundle branch block significantly impacts cardiac function. The patient was informed about the impact of COVID-19 on heart function and the importance of ongoing monitoring. Patient was informed and verbally consented to the use of an ambient scribe for clinic note documentation during this visit. Orders: Orders Basic Metabolic Panel Today I50.9 - Heart failure, unspecified Prothrombin Time INR Today I50.9 - Heart failure, unspecified Cardiac Cath LT Diagnostic Today I50.9 - Heart failure, unspecified Complete Blood Count no Diff Today I50.9 - Heart failure, unspecified NT Pro B Type Natriuretic Pept Today I50.9 - Heart failure, unspecified Coding Level of Care Code Est Pt Level 5 (62105) Complex EM visit Add On G2211 Diagnoses Cardiomyopathy I42.9 LBBB (left bundle branch block) I44.7
[2025-01-15 14:59] VITALS: BP 100/70; PULSE 82; BMI 20.8
--- OUTSIDE RECORDS SUMMARY | 2025-01-15 18:35 | XMS_ITS | Clinical Summary ---
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 MEDICARE SUPPLEMENT MEDICARE PART A & B MEDICARE SUPPLEMENT MEDICARE PART A & B [facility] MEDICARE SUPPLEMENT ([place] [id number] MEDICARE PART A & B [facility] MEDICARE SUPPLEMENT MEDICARE PART A & B [facility] MEDICARE SUPPLEMENT MEDICARE PART A & B [facility] MEDICARE SUPPLEMENT MEDICARE PART A & B MEDICARE SUPPLEMENT MEDICARE PART A & [place] [address] [address] MEDICARE SUPPLEMENT MEDICARE PART A & B Member Subscriber Plan / Payer (Ef fective 2011-Present) Name:Dariana Kilgore Member ID:[id number] Relation to Subscriber:Self Name:Dariana Kilgore Subscriber ID:[id number] Payer ID:[id number] Group ID:Not on file Type:Medicare Address: [employer] [facility] [address] [id number] [facility] MEDICARE SUPPLEMENT Care Teams Ice House Supervisor Relationship Specialty Start Date End Date Scooby Shafer MD [address] [place] [address] PCP - General Family Medicine 06/11/23 Additional Source Comments The information contained in this document represents components of the legal health record. It is not the complete legal health record.[facility]
== END 2025-01-15 15:48 | disposition home or self-care (01) ==
PROVIDERS: PCP Family Medicine; Visit Provider Internal Medicine
DX: I42.9 Cardiomyopathy, unspecified (principal); I44.7 Left bundle-branch block, unspecified; Z09 Encounter for follow-up examination after completed treatment for conditions other than malignant neoplasm
CPT/HCPCS: 99214; G2211

== ENCOUNTER → 2025-01-15 14:45 | Outpatient (BNVA) | payer MEDICARE, OTHER, SELFPAY | PROVIDERS: PCP Family Medicine; Visit Provider Internal Medicine | DX: I42.9 Cardiomyopathy, unspecified (principal); I44.7 Left bundle-branch block, unspecified | CPT/HCPCS: 99212 ==

== ENCOUNTER 2025-01-28 08:20 | Outpatient (REF) | payer MEDICARE, OTHER, SELFPAY ==
[2025-01-28 11:32] LABS: INTERNATIONAL NORM RATIO 1.0 (0.9-1.1); Prothrombin Time 11.7 SEC (11.2-13.5)
[2025-01-28 11:36] LABS: Appearance Urine Clear; Glucose Urine UA 250 mg/dL (Negative); PH 7.5 (5.0-9.0); Specific Gravity - Urine <= 1.005 (1.005-1.025)
[2025-01-28 12:17] LABS: Microalbum/Creatinine Ratio Ur 81.8 ug/mg cr (<30)
[2025-01-28 12:19] LABS: Alanine Aminotransferase 39 U/L (0-31); Albumin Level 4.5 g/dL (3.5-5.0); Alkaline Phosphatase 98 U/L (39-117); Amylase 143 U/L (28-100); Anion Gap 11 (12-20); Aspartate Amino Transferase 42 U/L (5-31); Blood Urea Nitrogen 18 mg/dL (9-16); Calcium 9.2 mg/dL (8.4-10.2); Carbon Dioxide 32 mmol/L (22-29); Chloride 101 mmol/L (96-108); Cholesterol 132 mg/dL (<200); Estimated Glomerular Filt Rate > 60; HDL Cholesterol 52 mg/dL (>40); Potassium 3.7 mmol/L (3.3-5.1); Sodium 140 mmol/L (135-145); Total Protein 7.8 g/dL (6.5-8.0); Triglycerides 63 mg/dL (<150)
[2025-01-28 12:20] LABS: NT Pro B Type Natriuretic Pept 530.9 pg/mL (<300)
== END 2025-01-28 08:21 | disposition home or self-care (01) ==
LOC: HO.WFDLDS 08:20
PROVIDERS: Nurse Practitioner Family; PCP Family Medicine; Referring Provider Internal Medicine; Visit Provider Family Medicine
DX: Z00.00 Encounter for general adult medical examination without abnormal findings (principal); I11.0 Hypertensive heart disease with heart failure; I50.20 Unspecified systolic (congestive) heart failure; R14.0 Abdominal distension (gaseous); R17 Unspecified jaundice; R73.01 Impaired fasting glucose; R74.8 Abnormal levels of other serum enzymes; U07.1 COVID-19; J18.9 Pneumonia, unspecified organism; I42.9 Cardiomyopathy, unspecified
CPT/HCPCS: 36415; 80053; 80061; 81003; 82043; 82150; 82570; 83880; 85610; 99212

== ENCOUNTER 2025-01-28 08:20 | Outpatient (AMB) | payer MEDICARE, OTHER, SELFPAY ==
--- OUTSIDE RECORDS SUMMARY | 2022-10-03 08:45 | XMS_ITS | Encounter Summary ---
Author Organization [facility] Address [address] [place] [address] Phone Care Team Providers Care Jelly Filter Tender Name Role Phone Sherrell Vidal PUBLISHING SYSTEMS ANALYST Primary Care Provider Encounter Details Date Type Department Care Team (Late st Contact Info) Description 10/03/2022 9:45 AM EDT Hospital Encounter [facility] [address] [place] [phone] Iona Gonzalez, PUBLISHING SYSTEMS ANALYST [address] [place] [address] [email or web address] Social History Tobacco Use Types Packs/Day Years [...] middle phalanx,likely a nondisplaced fracture. Iona Gonzalez PUBLISHING SYSTEMS ANALYST IMG XR LOWER EXTREMITY Edit ed Result - Final documented in this encounter Visit Diagnoses Not on filedocumented in this encounter Care Teams Jelly Filter Tender Relationship Specialty Start Date End Date Sherrell Vidal NP PCP - General Nurse Practitioner 10/03/22 06/10/23 documented as of this encounter Additional Source Comments The information contained in this document represents components of the legal health record. It is not the complete legal health record.[facility]
--- OUTSIDE RECORDS SUMMARY | 2023-06-11 07:43 | XMS_ITS | Encounter Summary ---
Author Organization [facility] Address [address] [place] [address] Phone Care Team Providers Care Student Records Specialist Name Role Phone Scooby Shafer MD Primary Care Provider Encounter Details Date Type Department Care Team (Late st Contact Info) Description 06/11/2023 8:43 AM EDT Hospital Encounter [facility] [address] [place] [address] Iona Gonzalez, POOLROOM TABLE ATTENDANT [address] [place] [address] [email or web address] Social History Tobacco Use [...] communicated on 06/11/2023 9:08 AM, Message ID [id number]. Narrative 06/11/2023 9:08 AM EDT XR ANKLE 3 OR MORE VIEWS (LEFT) Referring clinician's provided indication for this examination in [facility]: Pain; twisted ankle ? fx COMPARISON: None [...] indication for this examination in [facility]:Pain; twisted ankle ? fx COMPARISON: None FINDINGS: [...] was communicated on 06/11/2023 9:08 AM,Message ID [id number]. us Iona B Whitehill POOLROOM TABLE ATTENDANT IMG XR LOWER EXTREMITY Nishi l Result documented in this encounter Visit Diagnoses Not on filedocumented in this encounter Care Teams Student Records Specialist Relationship Specialty Start Date End Date Scooby Shafer MD PCP - General Family Medicine 06/11/23 documented as of this encounter Additional Source Comments The information contained in this document represents components of the legal health record. It is not the complete legal health record.[facility]
--- OUTSIDE RECORDS SUMMARY | 2023-06-11 08:13 | XMS_ITS | Encounter Summary ---
Author Organization [facility] Address [address] [place] [address] Phone Care Team Providers Care Refuge Worker Name Role Phone Scooby Shafer MD Primary Care Provider Encounter Details Date Type Department Care Team (Late st Contact Info) Description 06/11/2023 9:13 AM EDT Hospital Encounter [facility] [address] [place] [address] Iona Gonzalez, LEAN COACH [address] [place] [address] [email or web address] Social History Tobacco Use Types Packs/Day [...] metatarsal avulsion fractures. us Iona B Ivanll LEAN COACH IMG XR LOWER EXTREMITY Nishi l Result documented in this encounter Visit Diagnoses Not on filedocumented in this encounter Care Teams Refuge Worker Relationship Specialty Start Date End Date Scooby Shafer MD PCP - General Family Medicine 06/11/23 documented as of this encounter Additional Source Comments The information contained in this document represents components of the legal health record. It is not the complete legal health record.[facility]
--- NOTE | 2025-01-28 08:30 | MHC.PC.OV ---
Vital Signs 01/28/25 08:34 Height 5 ft 2 in Weight 113 lb BMI 20.7 BP 102/64 Blood Pressure Location Rt brachial Position Sitting Respiration 16 Pulse 95 Pulse Source Pulse Oximeter Temp 97.7 F Temp Source Temporal Artery Scan Pulse Oximetry (%) 98 Oxygen Delivery Method Room Air Intake Visit Reasons: [address] Goldsmith HTN Intake Note: Dariana presents in the office today for a 6 month follow up. Hypertension. Patient states she is having heart issues. Recently had COVID and P[place]um[place]. Allergies Penicillins (PCN) Allergy (Mild, Verified 01/28/25 08:32) RASH pravastatin Adverse Reaction (Intermediate, Verified 01/28/25 08:32) body aches Medication List - Last Reconciled 01/28/25 by Scooby Shafer MD aspirin 81 mg PO DAILY atorvastatin 40 mg PO DAILY 3 months bisacodyl (Gentle Laxative (bisacodyl)) 10 mg [place] BEDTIME 30 days carboxymethylcellulose sodium 0.5% (Refresh Tears) 1 drp ophthalmic (eye) BID carvedilol (Coreg) 3.125 mg PO BID cholecalciferol (vitamin D3) 10 mcg PO DAILY docusate sodium 100 mg PO BID PRN 30 days empagliflozin (Jardiance) 25 mg PO DAILY 30 days furosemide 60 mg See Protocol PO DAILY 30 days furosemide 40 mg See Protocol PO DAILY 30 days nitroglycerin (Nitrostat) 0.4 mg sublingual Q5MX3 PRN 5 days polyethylene glycol 3350 17 grams PO DAILY sacubitril-valsartan 24-26 mg (Entresto) 1 tab See Protocol PO BID 30 days Tobacco use date assessed: 01/28/25 Fall risk assessment: No Falls in past year Last assessed Fall Risk: 01/28/25 Dental Screening Dental Screen Date: 01/28/25 Did you have a dental visit in the last 12 months?: Yes Did you have a dental problem in the last 6 months where you did not have access to dental care?: No Was dental information given to patient?: Patient has dentist HPI [address] Goldsmith HTN HPI Details 79 y/o female presents to f/u HTN, chronic conditions. Patient recently discharged from hospital admission for COVID pneumonia with likely secondary bacterial pneumonia complicated by heart failure with reduced EF (15%). She had been briefly admitted to ICU, not necessitating intubation for pressor support December 23, 2024. She had been initially treated with IV antibiotics de-escalated to Augmentin. She was treated with remdesivir with good affect. 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 Now Entresto, Coreg and Farxiga. Short-term rehab. Will need outpatient cardiac catheterization and follow-up with Cardiology as outpatient. Per cardiologIf that is unremarkable, consider cardiac MRI. She may need EP evaluation for Bi V ICD. Blood pressure today 102/64, 95p. Pt notes cardiac cath scheduled for next Sunday. HPI Comments History of Present Illness Details Documentation assistance for Scooby Shafer MD, was provided by Lon Ortega,? Brick Catcher on 01/28/2025 at 8:49 AM EST. I, Dr. Shafer, have read, observed, and verified documentation. ?? [facility] Medical History (Updated 01/28/25 @ 08:55 by Scooby Shafer MD) LBBB (left bundle branch block) Wears hearing aid in both ears COVID-19 vaccine series completed Hx of cerebral infarction Dupuytren contracture Hypercholesteremia Hypertension Surgical History Hx of squamous cell carcinoma excision Hx of tonsillectomy Hx of hand surgery H/O colonoscopy (~2016) Family History Unknown No problems noted. Other Mental health disorder Substance abuse Social History (Updated 01/28/25 @ 08:34 by Yesika Ivory [facility]) Household Members: None Housing: House Are you a primary housekeeper caregiver to a significant other at home: No Do you presently have visiting nurse or other home services: No Alcohol intake: never Patient Tobacco Use Status: Never used Tobacco e-Cigarette/Vaping Use: Never Used Second Hand Smoke Exposure: No Use of substances other than those prescribed or required for medical reasons: No service: No Current occupational status: retired Current occupational exposures/hazards: No Cognitive needs: No Hearing needs: Yes Vision needs: No Questionnaire Thrive Questionnaire Date Thrive assessed: 08/28/24 I am a: Patient What is your living situation today?: I have a steady place to live Within the past 12 months, did the food you bought not last and you didn't have the money to get more?: Never true Within the past 12 months, did you worry whether your food would run out before you got money to buy more?: Never true Do you have trouble paying for medicines?: No Do you have trouble getting transportation to medical appointments?: No Do you have trouble paying your heating and electricity bill?: No Do you have trouble taking care of your child, family member or friend?: No Do you have trouble with day-to-day activities such as bathing, preparing meals, shopping, managing finances, etc.?: No Are you currently unemployed and looking for a job?: No Are you interested in more education?: No Please select the resources that you would like help with: None Currently or been in a relationship where the following occur: No concerns reported THRIVE Score: 0 ALLEY-7 AMB Questionnaire ALLEY-7 Date ALLEY - 7 assessed: 08/28/24 Source: Developed by Drs. Ricky Lafleur, Dara Krueger, Jordan Ly and colleagues, with an educational stacey from [employer]. Review of Systems Const Denies chills, Denies fatigue, Denies fever(s), Denies headache(s) and Denies weakness ENT Denies dizziness and Denies headache(s) Card Denies dyspnea Resp Denies cough, Denies dyspnea, Denies wheezing and Denies other (shortness of breath) Musc Denies numbness and Denies tingling Neuro Denies dizziness, Denies headache(s), Denies numbness, Denies tingling and Denies weakness Psych Denies anxiety and Denies depression Endo Denies fatigue Aller/Immun Denies wheezing Physical exam (Primary Care) Vital Signs: Last Vital Signs Temp 97.7 F 01/28/25 08:34 Pulse 95 01/28/25 08:34 Resp 16 01/28/25 08:34 BP 102/64 01/28/25 08:34 Pulse Ox 98 01/28/25 08:34 Oxygen Delivery Method Room Air 01/28/25 08:34 BMI result Body Mass Index 20.7 Tobacco/Smoking Status: Tobacco use Status Tobacco use date assessed 01/28/25 01/28/25 08:38 Patient Tobacco Use Status Never used Tobacco 01/28/25 08:38 e-Cigarette/Vaping Use Never Used 01/28/25 08:38 Thrive Assessment: Date of Thrive Assessment Date Thrive assessed 08/28/24 01/28/25 08:38 Currently or been in a relationship where the following occur: No concerns reported Const General: well developed; No acute distress Nutritional Appearance: well nourished Orientation/consciousness: patient oriented x3 HENMT Head: Yes normocephalic and Yes atraumatic Eyes General: appearance normal, both eyes and all related structures Pupils: Equal, round and reactive pupils present EOM: EOMs intact bilaterally Resp Effort & Inspection: normal respiratory effort Auscultation: clear to auscultation bilaterally Cardio Rate: regular rate Rhythm: regular rhythm Heart sounds: S1 normal heart sound present, S2 normal heart sound present, no gallops, no murmurs and no rubs Neuro General: patient oriented x3 and gait normal Cranial nerves: Yes Equal, round and reactive pupils present Psych Affect: normal affect Coding Level of Care Code Est Pt Level 4 (64269) Diagnoses Primary hypertension I10 Hypertension type: primary hypertension COVID U07.1 Pneumonia J18.9 Laterality: bilateral Lung location: unspecified part of lung Pneumonia type: due to unspecified organism Acute congestive heart failure I50.9 HFrEF (heart failure with reduced ejection fraction) I50.20 Assessment & Plan Assessment & Plan (1) Hypertension: Code(s): I10 - Essential (primary) hypertension Category: Medical Qualifiers: Hypertension type: primary hypertension Qualified Code(s): I10 - Essential (primary) hypertension (2) COVID: Code(s): U07.1 - COVID-19 Category: Medical (3) Pneumonia: Code(s): J18.9 - Pneumonia, unspecified organism Category: Medical Qualifiers: Laterality: bilateral Lung location: unspecified part of lung Pneumonia type: due to unspecified organism Qualified Code(s): J18.9 - Pneumonia, unspecified organism (4) Acute congestive heart failure: Code(s): I50.9 - Heart failure, unspecified Category: Medical (5) HFrEF (heart failure with reduced ejection fraction): Code(s): I50.20 - Unspecified systolic (congestive) heart failure Category: Medical Plan Patient recently discharged from hospital admission for COVID pneumonia with likely secondary bacterial pneumonia complicated by heart failure with reduced EF (15%). She had been briefly admitted to ICU, not necessitating intubation for pressor support December 23, 2024. She had been initially treated with IV antibiotics de-escalated to Augmentin. She was treated with remdesivir with good affect. 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 Now Entresto, Coreg and Farxiga. Furosemide. Short-term rehab. Will need outpatient cardiac catheterization and follow-up with Cardiology as outpatient. Per cardiology, If that is unremarkable, consider cardiac MRI. She may need EP evaluation for Bi V ICD. Blood pressure well controlled today. Could consider spironolactone future. Continue current medications Follow-up with Cardiology as recommended. Cardiac catheterization scheduled for next week. Orders: Orders Complete Blood Count Auto Diff Today I50.20 - Unspecified systolic (congestive) heart failure, Z00.00 - Encounter for general adult medical examination without abnormal findings Lipid Panel Today I42.9 - Cardiomyopathy, unspecified, Z00.00 - Encounter for general adult medical examination without abnormal findings Comprehensive [place]. Panel Fast Today I50.20 - Unspecified systolic (congestive) heart failure, Z00.00 - Encounter for general adult medical examination without abnormal findings Microalbumin, Random (w Creat) Today I10 - Essential (primary) hypertension, I50.20 - Unspecified systolic (congestive) heart failure UA CC w/rflx Micro + Cult Today I50.20 - Unspecified systolic (congestive) heart failure, Z00.00 - Encounter for general adult medical examination without abnormal findings
--- OUTSIDE RECORDS SUMMARY | 2025-01-28 08:32 | XMS_ITS | Clinical Summary ---
Author Organization [facility] Address [address] [place] [id number] Phone Care Team Providers Care Brand Activation Manager Name Role Phone Scooby Shafer MD Primary Care Provider Allergies Active Allergy Reactions Criticality Noted Date Comments Penicillins Rash Low 12/29/2020 Twbbnyv-Qqr-Uvp Reductase Inhibitors 09/10/2024 Medications diphenhydrAMINE (BENADRYL) 25 [...] Payer (Ef fective 2011-Present) Name:Dariana Kilgore Member ID:[id number] Relation to Subscriber:Self Name:Dariana Kilgore Subscriber ID:[id number] Payer ID:[id number] Group ID:Not on file Type:Medicare Address: [employer] [address] MEDICARE SUPPLEMENT MEDICARE PART A & B MEDICARE SUPPLEMENT MEDICARE PART A & B [facility] MEDICARE SUPPLEMENT ([place] [id number] MEDICARE PART A & B [facility] MEDICARE SUPPLEMENT MEDICARE PART A & B Member Subscriber Plan / Payer (Ef fective 2011-Present) Name:Dariana Kilgore Member ID:[id number] Relation to Subscriber:Self Name:Dariana Kilgore Subscriber ID:[id number] Payer ID:[id number] Group ID:Not on file Type:Medicare Address: [employer] [address] [place] [id number] [facility] MEDICARE SUPPLEMENT MEDICARE PART A & B Member Subscriber Plan / Payer (Ef fective 2011-Present) Name:Puja Kilgorescluis Bowers Member ID:[id number] Relation to Subscriber:Self Name:Dariana Kilgore Subscriber ID:[id number] Payer ID:[id number] Group ID:Not on file Type:Medicare Address: [employer] [address] [place] [address] [facility] MEDICARE SUPPLEMENT MEDICARE PART A & B Member Subscriber Plan / Payer ( fective 2011-Present) Name:Dariana Kilgore Member ID:[id number] Relation to Subscriber:Self Name:Dariana Kilgore Subscriber ID:[id number] Payer ID:[id number] Group ID:Not on file Type:Medicare Address: [employer] [address] [place] [address] MEDICARE SUPPLEMENT MEDICARE PART A & B Member Subscriber Plan / Payer (Ef fective 2011-) Name:Dariana Kilgore Member ID:[id number] Relation to Subscriber:Self Name:Dariana Kilgore Subscriber ID:[id number] Payer ID:[id number] Group ID:Not on file Type:Medicare Address: [employer] [address] [place], [place] [id number] [place] [address] MEDICARE SUPPLEMENT MEDICARE PART A & B Member Subscriber Plan / Payer (Ef fective 2011-Present) Name:Dariana Kilgore Member ID:[id number] Relation to Subscriber:Self Name:Dariana Kilgore Subscriber ID:[id number] Payer ID:[id number] Group ID:Not on file Type:Medicare Address: [employer] [facility] [address] [address] [facility] MEDICARE SUPPLEMENT Care Teams Brand Activation Manager Relationship Specialty Start Date End Date Scooby Shafer MD PCP - General Family Medicine 06/11/23 Additional Source Comments The information contained in this document represents components of the legal health record. It is not the complete legal health record.[facility]
[2025-01-28 08:34] VITALS: BP 102/64; PULSE 95; RESP 16; TEMP 36.5; O2SAT 98; BMI 20.7
== END 2025-01-28 08:55 | disposition home or self-care (01) ==
LOC: HO.HMCFM 08:21
PROVIDERS: PCP Family Medicine; Visit Provider Family Medicine
DX: I11.0 Hypertensive heart disease with heart failure (principal); I50.20 Unspecified systolic (congestive) heart failure; U07.1 COVID-19; J18.9 Pneumonia, unspecified organism

== ENCOUNTER → 2025-02-03 23:59 | Outpatient (BNV) | payer MEDICARE, OTHER, SELFPAY | PROVIDERS: PCP Family Medicine; Visit Provider Internal Medicine Cardiovascular Disease | DX: I42.8 Other cardiomyopathies (principal); I50.9 Heart failure, unspecified | CPT/HCPCS: 93458; 99152 ==

== ENCOUNTER 2025-02-18 13:19 | Outpatient (AMB) | payer MEDICARE, OTHER, SELFPAY ==
--- OUTSIDE RECORDS SUMMARY | 2022-10-03 08:45 | XMS_ITS | Encounter Summary ---
Author Organization [facility] Address [address] [place] [address] Phone Care Team Providers Care Boat Engines Installer Name Role Phone Sherrell Vidal INTEGRATED CIRCUITS INSPECTOR Primary Care Provider Encounter Details Date Type Department Care Team (Late st Contact Info) Description 10/03/2022 9:45 AM EDT Hospital Encounter [facility] [address] [place] [phone] Iona Gonzalez, INTEGRATED CIRCUITS INSPECTOR [address] [place] [address] [email or web address] Social History Tobacco Use Types Packs/Day Years [...] middle phalanx,likely a nondisplaced fracture. Iona Gonzalez INTEGRATED CIRCUITS INSPECTOR IMG XR LOWER EXTREMITY Edit ed Result - Final documented in this encounter Visit Diagnoses Not on filedocumented in this encounter Care Teams Boat Engines Installer Relationship Specialty Start Date End Date Sherrell Vidal NP PCP - General Nurse Practitioner 10/03/22 06/10/23 documented as of this encounter Additional Source Comments The information contained in this document represents components of the legal health record. It is not the complete legal health record.[facility]
--- OUTSIDE RECORDS SUMMARY | 2023-06-11 07:43 | XMS_ITS | Encounter Summary ---
Author Organization [facility] Address [address] [place] [address] Phone Care Team Providers Care Consultant Name Role Phone Scooby Shafer MD Primary Care Provider Encounter Details Date Type Department Care Team (Late st Contact Info) Description 06/11/2023 8:43 AM EDT Hospital Encounter [facility] [address] [place] [address] Iona Gonzalez, PIPE FITTER AMMONIA [address] [place] [address] [email or web address] Social History Tobacco Use Types [...] Name Priority Date/Time Associated Diagnosis Comments XR ANKLE 3 OR MORE VIEWS (LEFT) Urgent/patient waiting 06/11/2023 8:49 AM EDT Pain and swelling of left ankle documented in this encounter Results * XR ANKLE 3 OR MORE VIEWS (LEFT) (06/11/2023 8:49 AM EDT) Anatomical Region Laterality Modality Ankle Left Computed Radiogr aphy 06/11/2023 9:05 AM EDT Impressions 06/11/2023 9:08 AM EDT Probable lateral calcaneal avulsion fracture. Possible base of fifth metatarsal avulsion fracture. Recommend dedicated left foot radiographs. A clinically significant result was communicated on 06/11/2023 9:08 AM, Message ID [id number]. Narrative 06/11/2023 9:08 AM EDT XR ANKLE 3 OR MORE VIEWS (LEFT) Referring clinician's provided indication for this examination in [facility]: Pain; twisted ankle ? fx COMPARISON: None FINDINGS: Probable lateral calcaneal avulsion fracture with overlying soft tissue swelling. Possible base of fifth metatarsal avulsion fracture, seen only on the lateral view. Normal alignment. Symmetric ankle mortise. Normal joint spaces. Achilles enthesophyte. No ankle effusion. Procedure Note Parker John MD, MPH - 06/11/2023 XR ANKLE 3 OR MORE VIEWS (LEFT) Referring clinician's provided indication for this examination in [facility]:Pain; twisted ankle ? fx COMPARISON: None FINDINGS: Probable lateral calcaneal avulsion fracture with overlying soft tissueswelling. Possible base of fifth metatarsal avulsion fracture, seen onlyon the lateral view. Normal alignment. Symmetric ankle mortise. Normaljoint spaces. Achilles enthesophyte. No ankle effusion. IMPRESSION: Probable lateral calcaneal avulsion fracture. Possible base of fifthmetatarsal avulsion fracture. Recommend dedicated left foot radiographs. A clinically significant result was communicated on 06/11/2023 9:08 AM,Message ID [id number]. us Iona B Whitehill PIPE FITTER AMMONIA IMG XR LOWER EXTREMITY Nishi l Result documented in this encounter Visit Diagnoses Not on filedocumented in this encounter Care Teams Consultant Relationship Specialty Start Date End Date Scooby Shafer MD PCP - General Family Medicine 06/11/23 documented as of this encounter Additional Source Comments The information contained in this document represents components of the legal health record. It is not the complete legal health record.[facility]
--- OUTSIDE RECORDS SUMMARY | 2023-06-11 08:13 | XMS_ITS | Encounter Summary ---
Author Organization [facility] Address [address] [place] [address] Phone Care Team Providers Care Change Control Coordinator Name Role Phone Scooby Shafer MD Primary Care Provider Encounter Details Date Type Department Care Team (Late st Contact Info) Description 06/11/2023 9:13 AM EDT Hospital Encounter [facility] [address] [place] [address] Iona Gonzalez, LAYOUT WORKER [address] [place] [address] [email or web address] Social History Tobacco Use Types Packs/Day [...] metatarsal avulsion fractures. us Iona B Ivanll LAYOUT WORKER IMG XR LOWER EXTREMITY Nishi l Result documented in this encounter Visit Diagnoses Not on filedocumented in this encounter Care Teams Change Control Coordinator Relationship Specialty Start Date End Date Scooby Shafer MD PCP - General Family Medicine 06/11/23 documented as of this encounter Additional Source Comments The information contained in this document represents components of the legal health record. It is not the complete legal health record.[facility]
--- NOTE | 2025-02-18 13:37 | A.OFFVIS_ITS ---
Vital Signs 02/18/25 13:38 Height 5 ft 2 in Weight 111 lb 15.917 oz BMI 20.5 BP 110/52 L Blood Pressure Location Lt brachial Position Sitting Pulse 88 Pulse Source Pulse Oximeter Intake Visit Reasons: s/p cardiac cath Equipment Hire Manager Required: No Accompanied by: Self / Same As Patient Allergies Penicillins (PCN) Allergy (Mild, Verified 02/18/25 13:41) RASH pravastatin Adverse Reaction (Intermediate, Verified 02/18/25 13:41) body aches Medication List - Last Reconciled 02/18/25 by Catalino Lou NP aspirin 81 mg PO DAILY atorvastatin 40 mg PO DAILY 3 months bisacodyl (Gentle Laxative (bisacodyl)) 10 mg [place] BEDTIME 30 days carboxymethylcellulose sodium 0.5% (Refresh Tears) 1 drp ophthalmic (eye) BID carvedilol (Coreg) 3.125 mg PO BID cholecalciferol (vitamin D3) 10 mcg PO DAILY docusate sodium 100 mg PO BID PRN 30 days empagliflozin (Jardiance) 25 mg PO DAILY 30 days furosemide 60 mg See Protocol PO DAILY 30 days furosemide 40 mg See Protocol PO DAILY 30 days nitroglycerin (Nitrostat) 0.4 mg sublingual Q5MX3 PRN 5 days polyethylene glycol 3350 17 grams PO DAILY sacubitril-valsartan 24-26 mg (Entresto) 1 tab See Protocol PO BID 30 days HPI Comments Details: This is a 79-year-old female patient coming in for a follow-up visit. Patient was in the hospital beginning of December for COVID and respiratory failure during which time patient was noted to have severe LV dysfunction with an EF at 15%. Patient was started on guideline based medical therapy and was discharged home. Most recently patient underwent a cardiac catheterization to rule out is chemic cardiomyopathy. Today, patient is reporting feeling intermittent dizziness otherwise with no other symptoms of exertional chest pain, shortness of breath, palpitations, orthopnea, PND, leg edema, presyncope or syncope. Patient is reporting compliance with all her medications. [facility] Medical History LBBB (left bundle branch block) Wears hearing aid in both ears COVID-19 vaccine series completed Hx of cerebral infarction Dupuytren contracture Hypercholesteremia Hypertension Surgical History Hx of squamous cell carcinoma excision Hx of tonsillectomy Hx of hand surgery H/O colonoscopy (~2017) Family History Unknown No problems noted. Other Mental health disorder Substance abuse Social History Household Members: None Housing: House Are you a primary live in caregiver to a significant other at home: No Do you presently have visiting nurse or other home services: No Alcohol intake: never Patient Tobacco Use Status: Never used Tobacco e-Cigarette/Vaping Use: Never Used Second Hand Smoke Exposure: No service: No Current occupational status: retired Current occupational exposures/hazards: No Cognitive needs: No Hearing needs: Yes Vision needs: No Review of Systems Const Denies daytime sleepiness, Denies difficulty sleeping, Denies snoring, Denies stops breathing during sleep and Denies weakness ENT Reports dizziness Card Denies chest pain, Denies rapid heart rate, Denies irregular heart rhythm, Denies claudication, Denies leg edema, Denies lightheadedness, Denies palpitations, Denies dyspnea, Denies dyspnea on exertion, Denies orthopnea, Denies paroxysmal nocturnal dyspnea and Denies slow heart rate Resp Denies cough, Denies dyspnea, Denies dyspnea on exertion and Denies snoring GI Reports no additional complaints, Denies hematochezia, Denies change in stool character and Denies dyspepsia Musc Denies abnormal gait, Denies muscle weakness and Denies numbness Neuro Denies abnormal gait, Reports dizziness, Denies numbness and Denies weakness Endo Denies palpitations Physical Exam Vital Signs: Last Vital Signs Pulse 88 02/18/25 13:38 BP 110/52 L 02/18/25 13:38 BMI result Body Mass Index 20.5 Const General: cooperative, healthy appearing, comfortable and no acute distress Orientation/consciousness: patient oriented x3 HEENT Head: Yes normal to inspection Neck Neck: Yes normal visual inspection, Yes trachea midline and Yes supple Chest Chest palpation & inspection: normal inspection of the chest Resp Effort & Inspection: normal respiratory effort Auscultation: clear to auscultation bilaterally, no crackles, no rales, no rhonchi and no wheezes Cardio Jugular venous distension: no JVD Palpation: normal PMI Rate: regular rate Rhythm: regular rhythm Heart sounds: S1 normal heart sound present, S2 normal heart sound present, no click, no gallops, no murmurs and no rubs Peripheral pulses: Peripheral pulses 2+ throughout GI Inspection: Yes normal to inspection Palpation (GI): Soft to palpation Auscultation: normal bowel sounds Skin General skin exam: no rashes or lesions noted Neuro General: patient oriented x3 Extrem General: Yes normal to inspection, No no pedal edema and No calf tenderness Psych Appearance: grossly normal Mental Status: mental status grossly normal Speech and movement: Normal speech and movement present Assessment & Plan Assessment & Plan (1) Nonischemic cardiomyopathy: Code(s): I42.8 - Other cardiomyopathies Category: Medical Plan: 12/23/2024-echo study showed a severely decreased LV systolic function with the ejection fraction at 15% with severe global hypokinesis, and paradoxical septal motion consistent with left bundle branch block. 02/03/2025-patient underwent a cardiac catheterization with Dr. Kilpatrick at [facility] that showed no significant coronary artery disease. Clinically euvolemic. Patient does report some dizziness intermittently most likely due to the low EF. Given unremarkable catheterization, we will pursue cardiac MRI. We will also start referral process to EP for Bi V ICD evaluation. The procedure along with its indications, risks and benefits was thoroughly discussed with the patient. Patient is in agreement of the plan. Continue carvedilol, Jardiance, Lasix, and Entresto. Currently blood pressure is on the low side and given her ongoing symptoms of dizziness, we have decided not to increase her doses. Advised on low-salt diet, daily weight monitoring, compression socks, and fluid restriction between 1.5-2 L daily. (2) Status post cardiac catheterization: Code(s): Z98.890 - Other specified postprocedural states Plan: Right wrist catheterization site is well healed. As above. (3) LBBB (left bundle branch block): Code(s): I44.7 - Left bundle-branch block, unspecified Category: Medical Plan: As above. Advised on heart healthy diet, med compliance, and management of vascular risk factors. Follow up after EP consultation. In the interim, patient will call the office with any concerns or change in symptoms. This note was generated using voice recognition software. While every effort has been made to ensure accuracy and proper geospatial image analyst, there may be occasional errors that could affect the content or meaning of the described symptoms. Orders: Orders MR cardiac morph fnct w/wo con Today I42.8 - Other cardiomyopathies Basic Metabolic Panel Today I42.8 - Other cardiomyopathies Referrals Cardiac Surgery Referral I42.8 - Other cardiomyopathies Medications: Discontinued nitroglycerin (Nitrostat) Discontinued Reason: Doctor's Order 0.4 mg sublingual Q5MX3 5 days PRN 5 tabs 0RF Chest Pain Coding Level of Care Code Est Pt Level 4 (16851) Complex visit Add On G2211 Diagnoses Nonischemic cardiomyopathy I42.8 Status post cardiac catheterization Z98.890 LBBB (left bundle branch block) I44.7 Time Spent (min) 33 Comment Time spent in reviewing the chart, test results, assessment, counseling and documentation.
[2025-02-18 13:38] VITALS: BP 110/52; PULSE 88; BMI 20.5
--- OUTSIDE RECORDS SUMMARY | 2025-02-18 16:27 | XMS_ITS | Clinical Summary ---
Author Organization [facility] Address [address] [place] [phone] Phone Care Team Providers Care Postal Clerk Name Role Phone Scooby Shafer MD Primary Care Provider Allergies Active Allergy Reactions Criticality Noted Date Comments Penicillins Rash Low 12/29/2020 Nytafpa-Iry-Oiy Reductase Inhibitors 09/10/2024 Medications diphenhydrAMINE (BENADRYL) 25 [...] Payer (Ef fective 2011-Present) Name:Dariana Kilgore Member ID:[id number] Relation to Subscriber:Self Name:Dariana Kilgore Subscriber ID:[id number] Payer ID:[id number] Group ID:Not on file Type:Medicare Address: [employer] [address] MEDICARE SUPPLEMENT MEDICARE PART A & B MEDICARE SUPPLEMENT MEDICARE PART A & B [facility] MEDICARE SUPPLEMENT ([place] [id number] MEDICARE PART A & B [facility] MEDICARE SUPPLEMENT MEDICARE PART A & B [facility] MEDICARE SUPPLEMENT MEDICARE PART A & B [facility] MEDICARE SUPPLEMENT MEDICARE PART A & B MEDICARE SUPPLEMENT MEDICARE PART A [place] [address] [place] [address] MEDICARE SUPPLEMENT MEDICARE PART A & B Member Subscriber Plan / Payer (Ef fective 2011-Present) Name:Dariana Kilgore Member ID:[id number] Relation to Subscriber:Self Name:Dariana Kilgore Subscriber ID:[id number] Payer ID:[id number] Group ID:Not on file Type:Medicare Address: [employer] [facility] [address] [address] [facility] MEDICARE SUPPLEMENT Care Teams Postal Clerk Relationship Specialty Start Date End Date Scooby Shafer MD PCP - General Family Medicine 06/11/23 Additional Source Comments The information contained in this document represents components of the legal health record. It is not the complete legal health record.[facility]
== END 2025-02-18 14:11 | disposition home or self-care (01) ==
LOC: HO.HCS 13:20
PROVIDERS: PCP Family Medicine
DX: I42.8 Other cardiomyopathies (principal); Z98.890 Other specified postprocedural states; I44.7 Left bundle-branch block, unspecified
CPT/HCPCS: 99214; G2211

== ENCOUNTER → 2025-02-18 13:19 | Outpatient (BNVA) | payer MEDICARE, OTHER, SELFPAY | PROVIDERS: PCP Family Medicine | DX: I42.8 Other cardiomyopathies (principal); I44.7 Left bundle-branch block, unspecified; Z98.890 Other specified postprocedural states | CPT/HCPCS: 99212 ==

== ENCOUNTER 2025-03-11 10:45 | Outpatient (AMB) | payer MEDICARE, OTHER, SELFPAY ==
--- OUTSIDE RECORDS SUMMARY | 2022-10-03 08:45 | XMS_ITS | Encounter Summary ---
Author Organization [facility] Address [address] [place] [address] Phone Care Team Providers Care Compliance Technician Name Role Phone Sherrell Vidal CORRESPONDENCE TRANSCRIBER Primary Care Provider Encounter Details Date Type Department Care Team (Late st Contact Info) Description 10/03/2022 9:45 AM EDT Hospital Encounter [facility] [address] [place] [phone] Iona Gonzalez, CORRESPONDENCE TRANSCRIBER [address] [place] [address] [email or web address] Social History Tobacco Use Types Packs/Day Years Used Date Smoking Tobacco: Never Smokeless Tobacco: Never Education Answer Date Recorded Are you interested in more education? Not on betty e 07/22/2022 Are you concerned about learning? Not on file 07/22/2022 No 07/22/2022 No 07/22/2022 Digital Access Answer Date Recorded No 08/20/2022 No 08/20/2022 Reliable internet access at home? Not on file 08/20/2022 Device with a working camera? Not on file Comments Unknown Sex and Gender Information Value Date Recorded Sex Assigned at Not on file Legal Sex Female 5:01 PM EDT Gender Identity Not on file Sexual Orientation Not on file documented as of this encounter Plan of Treatment Not on file documented as of this encounter Procedures Procedure Name Priority Date/Time Associated Diagnosis Comments XR TOES 2 OR MORE VIEWS (RIGHT) Urgent/patient waiting 10/03/2022 10:00 AM EDT Pain and swelling of toe of right foot documented in this encounter Results * XR Toes 2 or More Views (Right) (10/03/2022 10:00 AM EDT) Anatomical Region Laterality Modality Foot Right Computed Radiogr aphy 10/03/2022 10:2 3 AM EDT Addenda Addendum by Nicky Terrazas MD on 10/03/2022 4:25 PM EDT ADDENDUM: Team is aware based on epic notes. Impressions 10/03/2022 10:27 AM EDT Cortical irregularity of the anterior aspect of the fifth middle phalanx, likely a nondisplaced fracture. Narrative 10/03/2022 10:27 AM EDT XR TOES 2 OR MORE VIEWS (RIGHT) COMPARISON: None. FINDINGS: Cortical irregularity of the anterior aspect of the fifth middle phalanx. Normal joint spaces. Diffuse soft tissue swelling in the 5th toe. Procedure Note Nicky Terrazas MD - 10/03/2022 XR TOES 2 OR MORE VIEWS (RIGHT) COMPARISON: None. FINDINGS: Cortical irregularity of the anterior aspect of the fifth middle phalanx.Normal joint spaces. Diffuse soft tissue swelling in the 5th toe. IMPRESSION: Cortical irregularity of the anterior aspect of the fifth middle phalanx,likely a nondisplaced fracture. Iona Gonzalez CORRESPONDENCE TRANSCRIBER IMG XR LOWER EXTREMITY Edit ed Result - Final documented in this encounter Visit Diagnoses Not on filedocumented in this encounter Care Teams Compliance Technician Relationship Specialty Start Date End Date Sherrell Vidal NP PCP - General Nurse Practitioner 10/03/22 06/10/23 documented as of this encounter Additional Source Comments The information contained in this document represents components of the legal health record. It is not the complete legal health record.[facility]
--- OUTSIDE RECORDS SUMMARY | 2023-06-11 07:43 | XMS_ITS | Encounter Summary ---
Author Organization [facility] Address [address] [place] [address] Phone Care Team Providers Care Family Law Specialist Name Role Phone Scooby Shafer MD Primary Care Provider Encounter Details Date Type Department Care Team (Late st Contact Info) Description 06/11/2023 8:43 AM EDT Hospital Encounter [facility] [address] [place] [address] Iona Gonzalez, SKILLED NURSING FACILITY COUNSELOR [address] [place] [address] [email or web address] Social History Tobacco Use Types Packs/Day Years [...] communicated on 06/11/2023 9:08 AM, Message ID [id number]. Narrative 06/11/2023 9:08 AM EDT XR ANKLE 3 OR MORE VIEWS (LEFT) Referring clinician's provided indication for this examination in [facility]: Pain; twisted ankle ? fx COMPARISON: None [...] clinician's provided indication for this examination in [facility]:Pain; twisted ankle ? fx COMPARISON: None FINDINGS: [...] was communicated on 06/11/2023 9:08 AM,Message ID [id number]. us Iona B Whitehill SKILLED NURSING FACILITY COUNSELOR IMG XR LOWER EXTREMITY Nishi l Result documented in this encounter Visit Diagnoses Not on filedocumented in this encounter Care Teams Family Law Specialist Relationship Specialty Start Date End Date Scooby Shafer MD PCP - General Family Medicine 06/11/23 documented as of this encounter Additional Source Comments The information contained in this document represents components of the legal health record. It is not the complete legal health record.[facility]
--- OUTSIDE RECORDS SUMMARY | 2023-06-11 08:13 | XMS_ITS | Encounter Summary ---
Author Organization [facility] Address [address] [place] [address] Phone Care Team Providers Care Documentation Manager Name Role Phone Scooby Shafer MD Primary Care Provider Encounter Details Date Type Department Care Team (Late st Contact Info) Description 06/11/2023 9:13 AM EDT Hospital Encounter [facility] [address] [place] [address] Iona Gonzalez, NARROW FABRICS WEAVER [address] [place] [address] [email or web address] Social History Tobacco Use Types Packs/Day [...] Name Priority Date/Time Associated Diagnosis Comments XR FOOT 3 OR MORE VIEWS (LEFT) Urgent/patient waiting 06/11/2023 9:19 AM EDT Pain and swelling of left ankle documented in this encounter Results * XR FOOT 3 OR MORE VIEWS (LEFT) (06/11/2023 9:19 AM EDT) Anatomical Region Laterality Modality Foot Left Computed Radiogr aphy 06/11/2023 9:53 AM EDT Impressions 06/11/2023 9:56 AM EDT Lateral calcaneal and base of fifth metatarsal avulsion fractures. Narrative 06/11/2023 9:56 AM EDT XR FOOT 3 OR MORE VIEWS (LEFT) Referring clinician's provided indication for this examination in Epic: Pain; recommended by radiology for potential metatarsal avulsion fx COMPARISON: XR ANKLE 3 OR MORE VIEWS (LEFT) 08:47:03.000 FINDINGS: Dedicated views of the left foot confirm anterior lateral calcaneal avulsion fracture at base of fifth metatarsal avulsion fracture. There is overlying soft tissue swelling. No other fracture is seen. Procedure Note Parker John MD, MPH - 06/11/2023 XR FOOT 3 OR MORE VIEWS (LEFT) Referring clinician's provided indication for this examination in Epic:Pain; recommended by radiology for potential metatarsal avulsion fx COMPARISON: XR ANKLE 3 OR MORE VIEWS (LEFT) 08:47:03.000 FINDINGS: Dedicated views of the left foot confirm anterior lateral calcanealavulsion fracture at base of fifth metatarsal avulsion fracture. There isoverlying soft tissue swelling. No other fracture is seen. IMPRESSION: Lateral calcaneal and base of fifth metatarsal avulsion fractures. us Iona B Ivanll NARROW FABRICS WEAVER IMG XR LOWER EXTREMITY Nishi l Result documented in this encounter Visit Diagnoses Not on filedocumented in this encounter Care Teams Documentation Manager Relationship Specialty Start Date End Date Scooby Shafer MD PCP - General Family Medicine 06/11/23 documented as of this encounter Additional Source Comments The information contained in this document represents components of the legal health record. It is not the complete legal health record.[facility]
--- NOTE | 2025-03-11 10:48 | A.OFFPC_ITS ---
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: No Is last menstrual period known: No Post menopausal: No Patient : No Allergies Penicillins (PCN) Allergy (Mild, Verified 03/11/25 10:51) RASH pravastatin Adverse Reaction (Intermediate, Verified 03/11/25 10:51) body aches Medication List - Last Reconciled 03/11/25 by Scooby Shafer MD atorvastatin 40 mg PO DAILY 3 months bisacodyl (Gentle Laxative (bisacodyl)) 10 mg VT BEDTIME 30 days carboxymethylcellulose sodium 0.5% (Refresh Tears) 1 drp ophthalmic (eye) BID carvedilol (Coreg) 3.125 mg PO BID cholecalciferol (vitamin D3) 10 mcg PO DAILY docusate sodium 100 mg PO BID PRN 30 days empagliflozin (Jardiance) 25 mg PO DAILY 30 days furosemide 60 mg See Protocol PO DAILY 30 days furosemide 40 mg See Protocol PO DAILY 30 days polyethylene glycol 3350 17 grams PO DAILY sacubitril-valsartan 24-26 mg (Entresto) 1 tab See Protocol PO BID 30 days Tobacco use date assessed: 03/11/25 Fall risk assessment: No Falls in past year Last assessed Fall Risk: 03/11/25 Dental Screening Dental Screen Date: 03/11/25 Did you have a dental visit in the last 12 months?: Yes Did you have a dental problem in the last 6 months where you did not have access to dental care?: No Was dental information given to patient?: Patient has dentist HPI f/u labs, chronic conditions HPI Details 79 y/o 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 Labs drawn 01/28/25. Reviewed labs with pt. Elevated liver enzymes - AST 42, ALT 39. Triglycerides 63. TC 132. LDL 68. HDL 52. She is on artovastatin 40mg daily. BP today 143/83, 83p. Pt notes breathing is okay. [facility] Medical History LBBB (left bundle branch block) Wears hearing aid in both ears COVID-19 vaccine series completed Hx of cerebral infarction Dupuytren contracture Hypercholesteremia Hypertension Surgical History Hx of squamous cell carcinoma excision Hx of tonsillectomy Hx of hand surgery H/O colonoscopy (~2017) Family History Unknown No problems noted. Other Mental health disorder Substance abuse Social History Household Members: None Housing: House Are you a primary healthcare insurance sales agent to a significant other at home: No Do you presently have visiting nurse or other home services: No Alcohol intake: never Patient Tobacco Use Status: Never used Tobacco e-Cigarette/Vaping Use: Never Used Second Hand Smoke Exposure: No service: No Current occupational status: retired Current occupational exposures/hazards: No Cognitive needs: No Hearing needs: Yes Vision needs: No Questionnaire Thrive Questionnaire Date Thrive assessed: 08/28/24 I am a: Patient What is your living situation today?: I have a steady place to live Within the past 12 months, did the food you bought not last and you didn't have the money to get more?: Never true Within the past 12 months, did you worry whether your food would run out before you got money to buy more?: Never true Do you have trouble paying for medicines?: No Do you have trouble getting transportation to medical appointments?: No Do you have trouble paying your heating and electricity bill?: No Do you have trouble taking care of your child, family member or friend?: No Do you have trouble with day-to-day activities such as bathing, preparing meals, shopping, managing finances, etc.?: No Are you currently unemployed and looking for a job?: No Are you interested in more education?: No Please select the resources that you would like help with: None Currently or been in a relationship where the following occur: No concerns reported THRIVE Score: 0 ALLEY-7 AMB Questionnaire ALLEY-7 Date ALLEY - 7 assessed: 08/28/24 Source: Developed by Drs. Ricky Lafleur, Dara Krueger, Jordan Ly and colleagues, with an educational stacey from [email or web address]. Review of Systems Const Denies chills, Denies fatigue, Denies fever(s), Denies headache(s) and Denies weakness ENT Denies dizziness and Denies headache(s) Card Denies chest pain, Denies lightheadedness, Denies dyspnea and Denies other (Palpitations) Resp Denies cough, Denies dyspnea, Denies wheezing and Denies other ( shortness of breath) Musc Denies numbness and Denies tingling Neuro Denies dizziness, Denies headache(s), Denies numbness, Denies tingling, Denies paresthesias and Denies weakness Psych Denies anxiety and Denies depression Endo Denies fatigue Aller/Immun Denies wheezing Physical exam (Primary Care) Vital Signs: Last Vital Signs Temp 97.7 F 03/11/25 10:54 Pulse 83 03/11/25 10:54 Resp 16 03/11/25 10:54 BP 143/83 H 03/11/25 10:54 Pulse Ox 100 03/11/25 10:54 Oxygen Delivery Method Room Air 03/11/25 10:54 BMI result Body Mass Index 20.5 Tobacco/Smoking Status: Tobacco use Status Tobacco use date assessed 03/11/25 03/11/25 10:58 Patient Tobacco Use Status Never used Tobacco 03/11/25 10:48 e-Cigarette/Vaping Use Never Used 03/11/25 10:48 Thrive Assessment: Date of Thrive Assessment Date Thrive assessed 08/28/24 03/11/25 10:48 Currently or been in a relationship where the following occur: No concerns reported Const General: no acute distress and well developed Nutritional Appearance: well nourished Orientation/consciousness: patient oriented x3 HENMT Head: Yes normocephalic and Yes atraumatic Eyes General: appearance normal, both eyes and all related structures Pupils: Equal, round and reactive pupils present EOM: EOMs intact bilaterally Resp Effort & Inspection: normal respiratory effort Auscultation: clear to auscultation bilaterally Cardio Rate: regular rate Rhythm: regular rhythm Heart sounds: S1 normal heart sound present, S2 normal heart sound present, no gallops, no murmurs and no rubs Neuro General: patient oriented x3 and gait normal Cranial nerves: Yes Equal, round and reactive pupils present Psych Affect: normal affect Coding Level of Care Code Est Pt Level 4 (68156) Diagnoses Primary hypertension I10 Hypertension type: primary hypertension HFrEF (heart failure with reduced ejection fraction) I50.20 Hypercholesteremia E78.00 Assessment & Plan Assessment & Plan (1) Hypertension: Code(s): I10 - Essential (primary) hypertension Category: Medical Qualifiers: Hypertension type: primary hypertension Qualified Code(s): I10 - Essential (primary) hypertension (2) HFrEF (heart failure with reduced ejection fraction): Code(s): I50.20 - Unspecified systolic (congestive) heart failure Category: Medical (3) Hypercholesteremia: Code(s): E78.00 - Pure hypercholesterolemia, unspecified Category: Medical Plan 79 y/o female with heart failure (LVEF 15%), 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 Now Entresto, Coreg and Jardiance Furosemide. Had recent follow-up with Cardiology as outpatient. 02/03/2025-patient underwent a cardiac catheterization with Dr. Kilpatrick at [facility] that showed no significant coronary artery disease. No change to medication regimen; carvedilol, Jardiance, Lasix, and Entresto. Advised fluid restrictoion 1.5-2L and Salt/Sodium restriction. Compression stockings for LE edema. Ordered cardiac MRI and referred her to EP for evaluation for Bi V ICD. ProBNP 2197 in Late Nov to 531 on day of our last OV. Cr and eGFR wnl. BP today is a little elevated in the office however he checks it at home and says SBP is never above mid 120s Weight stable. No lower extremity edema. She is using her compression stockings No change to her medication regimen today. Reviewed fluid restriction. Not more than 1.5-2 L daily but she can spread this out throughout her day Avoiding salt and sodium Continue compression stockings and elevate legs at home. Follow-up with Cardiology and EP. -- Eczema bilateral hands. Observe fluid restriction but be sure to spread out water throughout the day to prevent dehydration. Use a moisturizer with no dyes or perfumes after each time she washes her hands. Can use hydrocortisone cream b.i.d. when severe. Orders: Orders Complete Blood Count Auto Diff Today I50.9 - Heart failure, unspecified, Z00.00 - Encounter for general adult medical examination without abnormal findings Basic Metabolic Panel Today I50.9 - Heart failure, unspecified, Z00.00 - Encounter for general adult medical examination without abnormal findings
[2025-03-11 10:54] VITALS: BP 143/83; PULSE 83; RESP 16; TEMP 36.5; O2SAT 100; BMI 20.5
--- OUTSIDE RECORDS SUMMARY | 2025-03-11 13:52 | XMS_ITS | Clinical Summary ---
Author Organization [facility] Address [address] [place] [id number] Phone Care Team Providers Care Coal Hiker Name Role Phone Scooby Shafer MD Primary Care Provider Allergies Active Allergy Reactions Criticality Noted Date Comments Penicillins Rash Low 12/29/2020 Wgkzcck-Ogx-Dsl Reductase Inhibitors 09/10/2024 Medications diphenhydrAMINE (BENADRYL) 25 [...] Payer (Ef fective 2011-Present) Name:Dariana Kilgore Member ID:[id number] Relation to Subscriber:Self Name:Dariana Kilgore Subscriber ID:[id number] Payer ID:[id number] Group ID:Not on file Type:Medicare Address: [place] [address] MEDICARE SUPPLEMENT MEDICARE PART A & B MEDICARE SUPPLEMENT MEDICARE PART A & B [facility] MEDIC[facility] SUPPLEMENT [place] [id number] MEDICARE PART A & B [facility] MEDICARE SUPPLEMENT MEDICARE PART A & B [facility] MEDICARE SUPPLEMENT MEDICARE PART A & B [facility] MEDICARE SUPPLEMENT MEDICARE PART A & B MEDICARE SUPPLEMENT MEDICARE PART A & [place] [address] [place] [address] MEDICARE SUPPLEMENT MEDICARE PART A & B Member Subscriber Plan / Payer (Ef fective 2011-Present) Name:Dariana Kilgore Member ID:[id number] Relation to Subscriber:Self Name:Dariana Kilgore Subscriber ID:[id number] Payer ID:[id number] Group ID:Not on file Type:Medicare Address: Responsible [place] [facility] [address] [address] [facility] MEDICARE SUPPLEMENT Care Teams Coal Hiker Relationship Specialty Start Date End Date Scooby Shafer MD PCP - General Family Medicine 06/11/23 Additional Source Comments The information contained in this document represents components of the legal health record. It is not the complete legal health record.[facility]
== END 2025-03-11 11:24 | disposition home or self-care (01) ==
LOC: HO.HMCFM 10:46
PROVIDERS: PCP Family Medicine; Visit Provider Family Medicine
DX: I10 Essential (primary) hypertension (principal); I50.20 Unspecified systolic (congestive) heart failure; E78.00 Pure hypercholesterolemia, unspecified

== ENCOUNTER 2025-03-11 10:45 | Outpatient (REF) | payer MEDICARE, OTHER, SELFPAY ==
[2025-03-11 15:30] LABS: MANUAL DIFF FLAG NO
[2025-03-11 15:36] LABS: Hematocrit 44.4 % (37.0-47.0); Hemoglobin 14.5 g/dl (12.0-16.0); Imm Gran Abs Auto 0.02 X10*3/uL (0.00-0.03); Imm Gran Pct Auto 0.3 % (0.0-0.4); Lymphocytes Absolute Auto 1.9 X10*3/uL (1.2-4.9); Mean Corpuscular HGB Conc 32.7 g/dl (31.0-35.0); Mean Corpuscular Hemoglobin 31.4 pg (27.0-33.0); Mean Corpuscular Volume 96.1 fL (80.0-98.0); NRBC Abs Auto 0.000 X10*3/uL (0.0-0.012); NRBC Pct Auto 0.0 /100WBC (0.0-0.2); Platelet Count 314 X10*3/uL (160-400); Red Blood Count 4.62 X10*6/uL (4.20-5.50); White Blood Count 7.2 X10*3/uL (4.8-10.8)
[2025-03-11 16:00] LABS: Anion Gap 12 (12-20); Blood Urea Nitrogen 18 mg/dL (9-16); Calcium 9.7 mg/dL (8.4-10.2); Carbon Dioxide 32 mmol/L (22-29); Chloride 99 mmol/L (96-108); Estimated Glomerular Filt Rate > 60; Potassium 4.1 mmol/L (3.3-5.1); Sodium 139 mmol/L (135-145)
== END 2025-03-11 10:46 | disposition home or self-care (01) ==
LOC: HO.WFDLDS 10:45
PROVIDERS: PCP Family Medicine; Visit Provider Family Medicine
DX: Z00.00 Encounter for general adult medical examination without abnormal findings (principal); I11.0 Hypertensive heart disease with heart failure; I50.20 Unspecified systolic (congestive) heart failure; E78.00 Pure hypercholesterolemia, unspecified
CPT/HCPCS: 36415; 80048; 85025; 99212